=== PATIENT | female | born 1990 | race American Indian/Alaskan Native ===

== ENCOUNTER 2016-12-17 12:04 | Emergency (ER) | payer BC, OTHER ==
--- NOTE | 2016-12-17 12:25 | Emergency Department Report ---
Stated Complaint: /NUMBNESS/SOB/CHEST PAIN Time Seen by Provider: 12/17/16 12:21 - HPI History of Present Illness: PT states for two days she has had L arm pain. PT States this morning she had sob, cp, and fatigue - ROS Review of Systems: - urinary frequency lmp 11-19-16 - cough - Exam Physical Exam: PT looks well, non toxic no focal weakness no acute resp distress rrr MSE screening note: Focused history and physical exam performed. Due to findings the following was ordered: ekg, labs, xr ED Disposition for MSE Condition: Stable
[2016-12-17 13:03] LABS: Basophils % (Auto) 0.6 % (0.0-1.8); Hematocrit 41.1 % (30.3-42.9); Hemoglobin 14.1 gm/dl (10.1-14.3); Mean Corpuscular HGB Conc 34 % (30-34); Mean Corpuscular Hemoglobin 30 pg (28-32); Mean Corpuscular Volume 86 fl (79-97); Platelet Count 271 K/mm3 (140-440); Red Blood Count 4.79 M/mm3 (3.65-5.03); Red Cell Distribution Width 13.3 % (13.2-15.2); White Blood Count 6.2 K/mm3 (4.5-11.0)
[2016-12-17 13:13] LABS: INR 1.01 (0.87-1.13)
[2016-12-17 13:26] LABS: Alanine Aminotransferase 10 units/L (7-56); Albumin 3.7 g/dL (3.9-5); Alkaline Phosphatase 72 units/L (35-129); Anion Gap 16 mmol/L; Blood Urea Nitrogen 7 mg/dL (7-17); Calcium 8.8 mg/dL (8.4-10.2); Carbon Dioxide 24 mmol/L (22-30); Chloride 101.2 mmol/L (98-107); Glucose 80 mg/dL (65-100); Sodium 137 mmol/L (137-145); Total Protein 7.3 g/dL (6.3-8.2)
--- NOTE | 2016-12-17 13:44 | XRay Report ---
ROUTINE CHEST, TWO VIEWS: HISTORY: chest pain. The trachea, heart, mediastinal contour, lung viera and bony thorax are unremarkable. IMPRESSION: Unremarkable chest x-ray.
--- NOTE | 2016-12-17 14:34 | Cat Scan Report ---
CT angiography of the chest including 3-D reconstructed images. History: Chest pain and shortness of breath. Findings: There is no evidence of pulmonary emboli. The lungs are clear. There is no pleural fluid. The mediastinum and hilar regions appear normal. Impression: Negative study.
[2016-12-17] MEDS ORDERED: MORPHINE IV ONE (15:11)
[2016-12-17] MEDS ORDERED: ZOFRAN IV ONE (15:12)
--- NOTE | 2016-12-17 15:15 | Emergency Department Report ---
HPI - General Chief Complaint: Chest Pain Time Seen by Provider: 12/17/16 12:21 - HPI HPI: patient c/o mid chest pain, without radiation, 5/10, started 3 days ago, patient denies any alleviating or exacerbating factor. patient has not taken any medications otc for her pain. patient denies any h/o heart disease, or htn, or diabetes. ED Past Medical Hx - Past Medical History Previous Medical History?: Yes Hx Asthma: Yes - Surgical History Hx Cholecystectomy: Yes (09/03/2013) - Social History Smoking Status: Never Smoker Substance Use Type: Alcohol - Medications Home Medications: Home Medications Medication Instructions Recorded Confirmed Last Taken Type Albuterol Sulfate [Ventolin HFA] 2 puff IH Q4H PRN #1 hfa.aer.ad 03/30/14 Unknown Rx Ciprofloxacin HCl [Ciprofloxacin 500 mg PO Q12H #14 tab 10/27/14 Unknown Rx TAB] Promethazine [Phenergan TAB] 25 mg PO Q6HR PRN #20 tab 10/27/14 Unknown Rx Ibuprofen [Motrin 600 MG tab] 600 mg PO Q8H PRN #30 tablet 12/17/16 Unknown Rx ED Review of Systems ROS: Stated complaint: /NUMBNESS/SOB/CHEST PAIN Other details as noted in HPI Comment: All other systems reviewed and negative Cardiovascular: chest pain Endocrine: no symptoms reported Musculoskeletal: as per HPI Physical Exam - Physical Exam Vital Signs: Vital Signs 12/17/16 12:23 Temperature 97.8 F Pulse Rate 60 Respiratory 18 Rate Blood Pressure 113/72 O2 Sat by Pulse 100 Oximetry Physical Exam: - General Limitations: No Limitations General appearance: alert, in no apparent distress - Head Head exam: Present: atraumatic, normocephalic - Eye Eye exam: Present: normal appearance - ENT ENT exam: Present: mucous membranes moist - Neck Neck exam: Present: normal inspection - Respiratory Respiratory exam: Present: normal lung sounds bilaterally. Absent: respiratory distress - Cardiovascular Cardiovascular Exam: Present: regular rate, normal rhythm. Absent: systolic murmur, diastolic murmur, rubs, gallop - GI/Abdominal GI/Abdominal exam: Present: soft, normal bowel sounds - Extremities Exam Extremities exam: Present: normal inspection - Back Exam Back exam: Present: normal inspection - Neurological Exam Neurological exam: Present: alert, oriented X3, CN II-XII intact - Psychiatric Psychiatric exam: Present:normal affect - Skin Skin exam: Present: warm, dry, intact, normal color. Absent: rash ED Course Vital Signs 12/17/16 12:23 Temperature 97.8 F Pulse Rate 60 Respiratory 18 Rate Blood Pressure 113/72 O2 Sat by Pulse 100 Oximetry ED Medical Decision Making - Lab Data Result diagrams: 12/17/16 12:42 12/17/16 12:42 Critical care attestation.: If time is entered above; I have spent that time in minutes in the direct care of this critically ill patient, excluding procedure time. ED Disposition Clinical Impression: Chest pain Qualifiers: Chest pain type: other chest pain Qualified Code(s): R07.89 - Other chest pain ; R07.8 - Other chest pain Disposition: - TO HOME OR SELFCARE Is pt being admited?: No Does the pt Need Aspirin: No Condition: Stable Instructions: Chest Pain (ED) Prescriptions: Ibuprofen [Motrin 600 MG tab] 600 mg PO Q8H PRN #30 tablet PRN Reason: Pain Referrals: PRIMARY CARE, [Primary Care Provider] - 3-5 Days Forms: Work/School Release Form(ED)
[2016-12-17 15:39] VITALS: BP 114/62
== END 2016-12-17 15:41 | disposition home or self-care (01) ==
LOC: ED 12:04
DX: R07.89 Other chest pain (principal); J45.909 Unspecified asthma, uncomplicated; Z90.49 Acquired absence of other specified parts of digestive tract
CPT/HCPCS: 36415; 71020; 71275; 80053; 84484; 84703; 85025; 85610; 85730; 93005; 93010; 96374; 99284; J2270; Q9967

== ENCOUNTER 2017-10-10 10:07 | Emergency (ER) | payer MEDICAID ==
[2017-10-10 10:21] VITALS: BP 107/73
[2017-10-10 11:03] LABS: Bilirubin,Urine NEG (Negative); Blood,Urine LG (Negative); Color,Urine Yellow (Yellow); Mucus,Urine FEW /HPF; Protein,Urine <15 mg/dL mg/dL (Negative)
[2017-10-10 11:11] LABS: Amphetamine Screen,Urine PRESUMPTIVE NEGATIVE; Benzodiazepines Screen,Urine PRESUMPTIVE NEGATIVE; Cannabinoid Screen,Urine PRESUMPTIVE NEGATIVE; Cocaine Screen,Urine PRESUMPTIVE NEGATIVE; Methadone Screen,Urine PRESUMPTIVE NEGATIVE; Opiate Screen,Urine PRESUMPTIVE NEGATIVE
[2017-10-10 11:52] LABS: Basophils # (Auto) 0.1 K/mm3 (0.0-0.1); Eosinophils # (Auto) 0.1 K/mm3 (0.0-0.4); Eosinophils % (Auto) 1.8 % (0.0-4.3); Hematocrit 45.1 % (30.3-42.9); Hemoglobin 15.3 gm/dl (10.1-14.3); Lymphocytes # (Auto) 2.2 K/mm3 (1.2-5.4); Lymphocytes % (Auto) 31.4 % (13.4-35.0); Mean Corpuscular HGB Conc 34 % (30-34); Mean Corpuscular Hemoglobin 30 pg (28-32); Mean Corpuscular Volume 87 fl (79-97); Monocytes # (Auto) 0.5 K/mm3 (0.0-0.8); Monocytes % (Auto) 6.8 % (0.0-7.3); Platelet Count 266 K/mm3 (140-440); Red Blood Count 5.16 M/mm3 (3.65-5.03); Red Cell Distribution Width 13.4 % (13.2-15.2)
--- NOTE | 2017-10-10 12:03 | Emergency Department Report ---
ED Psych HPI - General Chief Complaint: Psych Stated Complaint: MENTAL HEALTH EVALUATION Time Seen by Provider: 10/10/17 10:34 Source: patient, family (Sister) Mode of arrival: Ambulatory Limitations: No Limitations - History of Present Illness Initial Comments: Patient said 2 days ago she overdosed on seven tablets of Zoloft 25 mg in an attempt to kill herself. Patient is currently suicidal, and has some fainancial and relationship issues with her boyfriend. She is depressed and she does not want to live any more. MD Complaint: suicidal ideation, feels depressed -: Gradual Associated Psychiatric Symptoms: depression, suicidal ideation History of same: Yes Quality: constant Improves With: none Worsens With: none Context: significant life stressor Associated Symptoms: denies other symptoms Treatments Prior to Arrival: none If Self Harm: admits thoughts of - Related Data Previous Rx's Medication Instructions Recorded Last Taken Type Albuterol Sulfate [Ventolin HFA] 2 puff IH Q4H PRN #1 hfa.aer.ad 03/30/14 Unknown Rx Ciprofloxacin HCl [Ciprofloxacin 500 mg PO Q12H #14 tab 10/27/14 Unknown Rx TAB] Promethazine [Phenergan TAB] 25 mg PO Q6HR PRN #20 tab 10/27/14 Unknown Rx Ibuprofen [Motrin 600 MG tab] 600 mg PO Q8H PRN #30 tablet 12/17/16 Unknown Rx Allergies Allergy/AdvReac Type Severity Reaction Status Date / Time shellfish derived AdvReac Intermediate Hives Verified 04/10/13 13:06 ED Review of Systems ROS: Stated complaint: MENTAL HEALTH EVALUATION Other details as noted in HPI Comment: All other systems reviewed and negative Constitutional: denies: chills, fever Eyes: denies: eye pain, vision change ENT: denies: ear pain Respiratory: denies: cough, orthopnea, shortness of breath Cardiovascular: denies: chest pain, palpitations, dyspnea on exertion Endocrine: no symptoms reported Gastrointestinal: denies: abdominal pain, nausea, vomiting, diarrhea Genitourinary: denies: urgency, dysuria, frequency Musculoskeletal: denies: back pain, joint swelling Skin: denies: rash, lesions Neurological: denies: headache, weakness, numbness Psychiatric: depression, suicidal thoughts. denies: anxiety, homicidal thoughts Hematological/Lymphatic: denies: easy bleeding, easy bruising ED Past Medical Hx - Past Medical History Hx Asthma: Yes - Surgical History Past Surgical History?: Yes Hx Cholecystectomy: Yes (09/03/2013) - Social History Smoking Status: Never Smoker Substance Use Type: Alcohol - Medications Home Medications: Home Medications Medication Instructions Recorded Confirmed Last Taken Type Albuterol Sulfate [Ventolin HFA] 2 puff IH Q4H PRN #1 hfa.aer.ad 03/30/14 Unknown Rx Ciprofloxacin HCl [Ciprofloxacin 500 mg PO Q12H #14 tab 10/27/14 Unknown Rx TAB] Promethazine [Phenergan TAB] 25 mg PO Q6HR PRN #20 tab 10/27/14 Unknown Rx Ibuprofen [Motrin 600 MG tab] 600 mg PO Q8H PRN #30 tablet 12/17/16 Unknown Rx ED Physical Exam - General Limitations: No Limitations General appearance: alert, in no apparent distress, other (Tearful.) - Head Head exam: Present: atraumatic, normocephalic, normal inspection - Eye Eye exam: Present: normal appearance, PERRL, EOMI. Absent: scleral icterus Pupils: Present: normal accommodation - ENT ENT exam: Present: normal exam, normal orophraynx, mucous membranes moist - Neck Neck exam: Present: normal inspection, full ROM - Respiratory Respiratory exam: Present: normal lung sounds bilaterally. Absent: respiratory distress, wheezes, rales, rhonchi - Cardiovascular Cardiovascular Exam: Present: regular rate, normal rhythm, normal heart sounds - GI/Abdominal GI/Abdominal exam: Present: soft, normal bowel sounds. Absent: distended, tenderness, guarding, rebound - Extremities Exam Extremities exam: Present: normal inspection, full ROM, normal capillary refill - Back Exam Back exam: Present: normal inspection, full ROM - Neurological Exam Neurological exam: Present: alert, oriented X3, CN II-XII intact - Psychiatric Psychiatric exam: Present: depressed, flat affect, suicidal ideation - Skin Skin exam: Present: warm, dry, intact, normal color. Absent: rash ED Course Vital Signs 10/10/17 10:16 Temperature 97.9 F Pulse Rate 86 Respiratory 16 Rate Blood Pressure 107/73 O2 Sat by Pulse 99 Oximetry - Reevaluation(s) Reevaluation #1: 10/10/17 12:39 Patient is medically cleared for psychiatric evaluation. ED Medical Decision Making - Lab Data Result diagrams: 10/10/17 10:50 - Radiology Data Radiology results: report reviewed - Medical Decision Making Suicide attempt. Suicide ideation. Major depression. Critical care attestation.: If time is entered above; I have spent that time in minutes in the direct care of this critically ill patient, excluding procedure time. ED Disposition Clinical Impression: Suicide ideation Suicide attempt by drug ingestion Qualifiers: Encounter type: initial encounter Qualified Code(s): T50.902A - Poisoning by unspecified drugs, medicaments and biological substances, intentional self-harm , initial encounter Depression Qualifiers: Depression Type: major depressive disorder Major depression recurrence: recurrent Active/Remission status: currently active Major depression episode severity: severe Psychotic features: without psychotic features Qualified Code(s ): F33.2 - Major depressive disorder, recurrent severe without psychotic features Disposition: DC/TX-65 PSY HOSP/PSY UNIT Is pt being admited?: No Does the pt Need Aspirin: No Condition: Stable Referrals: PRIMARY CARE, [Primary Care Provider] - 3-5 Days Time of Disposition: 12:41
[2017-10-10 12:45] LABS: BUN/Creatinine Ratio 16; Blood Urea Nitrogen 8 mg/dL (7-17); Calcium 9.3 mg/dL (8.4-10.2); Hemolysis Index 13
[2017-10-10 12:59] LABS: Albumin 3.6 g/dL (3.9-5); Bilirubin,Direct 0.2 mg/dL (0-0.2)
[2017-10-11 07:51] LABS: HCG Qualitative,Urine Negative (Negative)
== END 2017-10-10 18:32 ==
LOC: ED 10:07
DX: T50.902A Poisoning by unspecified drugs, medicaments and biological substances, intentional self-harm, initial encounter (principal); F33.2 Major depressive disorder, recurrent severe without psychotic features; Y92.89 Other specified places as the place of occurrence of the external cause; J45.909 Unspecified asthma, uncomplicated
CPT/HCPCS: 36415; 80048; 80074; 80307; 81001; 81025; 85025; 99285; G0480; 80320

== ENCOUNTER 2020-02-13 12:06 | Inpatient (IN) | payer MEDICAID, SELFPAY ==
[2020-02-13] MEDS ORDERED: SODIUM CHLORIDE 0.9% 1000 ML 1,000 ML IV ONE (12:11)
--- NOTE | 2020-02-13 12:52 | Emergency Department Report ---
ED Shortness of Breath HPI - General Chief Complaint: Dyspnea/Respdistress Stated Complaint: ADRIANA Time Seen by Provider: 02/13/20 12:09 Source: EMS Mode of arrival: Stretcher Limitations: No Limitations - History of Present Illness Initial Comments: This is a 37-year-old female who had a test I believe that an outpatient clinic on Friday which was positive for Covid. She states that she was short of breath. It became acutely worse today when EMS was summoned. She has been coughing frequently albeit nonproductive. She states that she has had change in her sense of smell and taste. Complaint: shortness of breath -: days(s) Severity: moderate Quality: dull (Chest discomfort) Consistency: intermittent Improves With: nothing Worsens With: nothing Known History Of: other Context: recent URI Associated Symptoms: denies other symptoms, chest pain, cough Treatments Prior to Arrival: none - Related Data Home Oxygen Therapy: No Previous Rx's Medication Instructions Recorded Last Taken Type Albuterol Sulfate [Ventolin HFA] 2 puff IH Q4H PRN #1 hfa.aer.ad 03/30/14 Unknown Rx Ciprofloxacin HCl [Ciprofloxacin 500 mg PO Q12H #14 tab 10/27/14 Unknown Rx TAB] Promethazine [Phenergan TAB] 25 mg PO Q6HR PRN #20 tab 10/27/14 Unknown Rx Ibuprofen [Motrin 600 MG tab] 600 mg PO Q8H PRN #30 tablet 12/17/16 Unknown Rx Allergies Allergy/AdvReac Type Severity Reaction Status Date / Time shellfish derived AdvReac Intermediate Hives Verified 02/13/20 12:31 ED Review of Systems ROS: Stated complaint: ADRIANA Other details as noted in HPI Constitutional: fever. denies: chills Eyes: denies: eye pain, eye discharge, vision change ENT: denies: ear pain, throat pain Respiratory: cough, shortness of breath. denies: wheezing Cardiovascular: chest pain. denies: palpitations Endocrine: no symptoms reported Gastrointestinal: denies: abdominal pain, nausea, diarrhea Genitourinary: denies: urgency, dysuria, discharge Musculoskeletal: denies: back pain, joint swelling, arthralgia Skin: denies: rash, lesions Neurological: denies: headache, weakness, paresthesias Psychiatric: denies: anxiety, depression Hematological/Lymphatic: denies: easy bleeding, easy bruising ED Past Medical Hx - Past Medical History Hx Asthma: Yes Additional medical history: Apparently the patient was transferred to [place] in 2018 for suicidal ideation. - Surgical History Hx Cholecystectomy: Yes (09/03/2013) - Social History Smoking Status: Never Smoker Substance Use Type: Alcohol - Medications Home Medications: Home Medications Medication Instructions Recorded Confirmed Last Taken Type Albuterol Sulfate [Ventolin HFA] 2 puff IH Q4H PRN #1 hfa.aer.ad 03/30/14 Unknown Rx Ciprofloxacin HCl [Ciprofloxacin 500 mg PO Q12H #14 tab 10/27/14 Unknown Rx TAB] Promethazine [Phenergan TAB] 25 mg PO Q6HR PRN #20 tab 10/27/14 Unknown Rx Ibuprofen [Motrin 600 MG tab] 600 mg PO Q8H PRN #30 tablet 12/17/16 Unknown Rx ED Physical Exam - General Limitations: No Limitations General appearance: alert, in no apparent distress, obese (Morbidly obese) - Head Head exam: Present: atraumatic, normocephalic - Eye Eye exam: Present: normal appearance. Absent: scleral icterus - ENT ENT exam: Present: mucous membranes moist - Neck Neck exam: Present: normal inspection - Respiratory Respiratory exam: Present: normal lung sounds bilaterally, other (Frequent nonproductive cough). Absent: respiratory distress - Cardiovascular Cardiovascular Exam: Present: normal rhythm, tachycardia. Absent: systolic murmur, diastolic murmur, rubs, gallop - GI/Abdominal GI/Abdominal exam: Present: soft, normal bowel sounds. Absent: distended, tenderness, guarding, rebound, rigid - Extremities Exam Extremities exam: Present: normal inspection - Back Exam Back exam: Present: normal inspection - Neurological Exam Neurological exam: Present: alert, oriented X3, CN II-XII intact. Absent: motor sensory deficit - Psychiatric Psychiatric exam: Present: normal affect, normal mood - Skin Skin exam: Present: warm, dry, intact, normal color. Absent: rash ED Course Vital Signs 02/13/20 02/13/20 02/13/20 12:12 12:30 13:00 Pulse Rate 108 H 105 H 105 H Respiratory 33 H 33 H 36 H Rate Blood Pressure 122/82 121/75 O2 Sat by Pulse 94 93 Oximetry - Reevaluation(s) Reevaluation #1: Patient is somewhat tachypneic with a pulse oximetry of 95% at rest. I would be fairly certain that she would desaturate on exertion. She is morbidly obese. I requested hospitalist to admit. They are in agreement. Laboratory had some sort of accession number delay in processing the labs which they have now corrected. 02/13/20 13:44 Reevaluation #2: Mild neutropenia noted 02/13/20 14:27 ED Medical Decision Making - Lab Data Result diagrams: 02/13/20 12:34 02/13/20 12:34 Laboratory Results - last 24 hr 02/13/20 02/13/20 02/13/20 12:34 12:34 12:34 WBC 2.5 L RBC 5.32 H Hgb 15.1 H Hct 44.8 H MCV 84 MCH 28 MCHC 34 RDW 13.1 L Plt Count 151 Lymph % (Auto) 32.3 [place] % (Auto) 10.5 H Eos % (Auto) 0.1 Baso % (Auto) 0.3 Lymph # (Auto) 0.8 L [place] # (Auto) 0.3 Eos # (Auto) 0.0 Baso # (Auto) 0.0 Seg Neutrophils % 56.8 Seg Neutrophils # 1.4 L PT INR APTT D-Dimer Sodium 134 L Potassium 3.9 Chloride 99.9 Carbon Dioxide 23 Anion Gap 15 BUN 6 L Creatinine 0.6 Estimated GFR > 60 BUN/Creatinine Ratio 10 Glucose 94 Lactic Acid 1.00 Calcium 8.7 Magnesium 1.80 Lactate Dehydrogenase 388 H Total Creatine Kinase 227 H CK-MB (CK-2) < 1.0 CK-MB (CK-2) Rel Index 0.4 Troponin T < 0.010 C-Reactive Protein 0.40 NT-Pro-B Natriuret Pep 7.77 Procalcitonin 02/13/20 02/13/20 12:34 12:34 WBC RBC Hgb Hct MCV MCH MCHC RDW Plt Count Lymph % (Auto) [place] % (Auto) Eos % (Auto) Baso % (Auto) Lymph # (Auto) [place] # (Auto) Eos # (Auto) Baso # (Auto) Seg Neutrophils % Seg Neutrophils # PT 12.9 INR 0.96 APTT 32.6 D-Dimer 329.05 H Sodium Potassium Chloride Carbon Dioxide Anion Gap BUN Creatinine Estimated GFR BUN/Creatinine Ratio Glucose Lactic Acid Calcium Magnesium Lactate Dehydrogenase Total Creatine Kinase CK-MB (CK-2) CK-MB (CK-2) Rel Index Troponin T C-Reactive Protein NT-Pro-B Natriuret Pep Procalcitonin < 0.05 - EKG Data -: EKG Interpreted by Me EKG shows normal: sinus rhythm, axis, intervals, QRS complexes, ST-T waves Rate: normal - EKG Data Interpretation: nonspecific ST-T wave dyana, other (Left atrial abnormality) - Radiology Data Radiology results: image reviewed Bilateral lower lobe and perihilar infiltrates consistent with viral pneumonia, e.g. COVID-19 Critical care attestation.: If time is entered above; I have spent that time in minutes in the direct care of this critically ill patient, excluding procedure time. ED Disposition Clinical Impression: COVID-19, Morbid obesity, Hypoxia Bilateral pneumonia Qualifiers: Pneumonia type: due to unspecified organism Lung location: unspecified part of lung Qualified Code(s): J18.9 - Pneumonia, unspecified organism Neutropenia Qualifiers: Neutropenia type: unspecified Qualified Code(s): D70.9 - Neutropenia, unspe cified Disposition: DC-09 OP ADMIT IP TO THIS HOSP Is pt being admited?: Yes Does the pt Need Aspirin: Yes Condition: Stable Instructions: Bacterial Pneumonia (ED) Referrals: PRIMARY CARE, [Primary Care Provider] - 3-5 Days Time of Disposition: 14:28
[2020-02-13 13:43] LABS: Basophils % (Auto) 0.3 % (0.0-1.8); Eosinophils % (Auto) 0.1 % (0.0-4.3); Hematocrit 44.8 % (30.3-42.9); Hemoglobin 15.1 gm/dl (10.1-14.3); Lymphocytes # (Auto) 0.8 K/mm3 (1.2-5.4); Lymphocytes % (Auto) 32.3 % (13.4-35.0); Mean Corpuscular HGB Conc 34 % (30-34); Mean Corpuscular Volume 84 fl (79-97); Monocytes # (Auto) 0.3 K/mm3 (0.0-0.8); Monocytes % (Auto) 10.5 % (0.0-7.3); Platelet Count 151 K/mm3 (140-440); Red Blood Count 5.32 M/mm3 (3.65-5.03); Red Cell Distribution Width 13.1 % (13.2-15.2)
[2020-02-13] MEDS ORDERED: cefTRIAXone/NS 1 GM/50 ML 1 GM/50 ML BAG IV ONE (13:49)
[2020-02-13 13:53] LABS: INR 0.96 (0.87-1.13)
[2020-02-13 13:54] LABS: Partial Thromboplastin Time 32.6 Sec. (24.2-36.6)
[2020-02-13 13:57] LABS: Creatine Kinase MB < 1.0 ng/mL (0.0-4.0)
--- NOTE | 2020-02-13 13:57 | XRay Report ---
CHEST 1 VIEW INDICATION: Dyspnea COMPARISON: 12/17/2016 FINDINGS: Support devices: None Heart: Stable. Lungs/Pleura: Inspiration is suboptimal, with subsequent crowding of the bronchovascular markings in the mid and lower lungs. No significant pleural fluid and no convincing evidence of acute disease. IMPRESSION: 1. Suboptimal inspiration, but no definite acute disease. Signer Name: Doe Shea MD Signed: 02/13/2020 1:52 PM Workstation Name: [id number]
[2020-02-13] MEDS ORDERED: AZITHROMYCIN 500 MG in SODIUM CHLORIDE 0.9% 250ML 250 ML IV ONE (14:00)
[2020-02-13 14:01] LABS: BUN/Creatinine Ratio 10; Blood Urea Nitrogen 6 mg/dL (7-17); Calcium 8.7 mg/dL (8.4-10.2); Hemolysis Index 30
[2020-02-13] MEDS ORDERED: ACETAMINOPHEN 325 MG TAB ONE (14:55)
[2020-02-13] MEDS: ASPIRIN 325 MG TAB PO ONE ×2 (15:00→18:57)
[2020-02-13 15:40] LABS: Bilirubin,Urine NEG (Negative); Blood,Urine NEG (Negative); Color,Urine Yellow (Yellow); Protein,Urine <15 mg/dL mg/dL (Negative); Urobilinogen,Urine < 2.0 mg/dL (<2.0)
[2020-02-13 15:44] LABS: Amphetamine Screen,Urine Negative; Benzodiazepines Screen,Urine Negative; Cannabinoid Screen,Urine Negative; Cocaine Screen,Urine Negative; Methadone Screen,Urine Negative; Opiate Screen,Urine Negative
[2020-02-13 15:53] LABS: HCG Qualitative,Urine Negative (Negative)
[2020-02-13] MEDS ORDERED: ACETAMINOPHEN 325 MG TAB PO ONE (18:50)
[2020-02-13] MEDS ORDERED: ALBUTEROL 2.5 MG/3 ML NEBU IH ONE (21:20)
--- NOTE | 2020-02-14 00:22 | History and Physical Report ---
History of Present Illness Date of examination: 02/13/20 Date of admission: 02/13/20 14:08 Chief complaint: Cough and shortness of breath for 5 days. Tested positive for coronavirus on 02/08/2020 History of present illness: 37-year-old female with history of asthma comes in for increasing shortness of breath. Patient was apparently tested positive for coronavirus on Friday which is 02/08/2020. Patient has been coughing frequently and some shortness of breath. Also body aches. No fever or chills. Patient x-ray and oxygen saturations are normal. No infiltrates on the chest x-ray. With the chest x- ray was suboptimal. Exposure to coronavirus present. And apparently had a coronavirus positive test. 5 days ago. - Past Medical History --Asthma: Yes --2018 for suicidal ideation. - Surgical History --Cholecystectomy: Yes (09/03/2013) - Social History --Smoking Status: Never Smoker --Substance Use Type: Alcohol Family history --Htn - Medications Home Medications: Home Medications Medication Instructions Recorded Confirmed Last Taken Type Albuterol Sulfate [Ventolin HFA] 2 puff IH Q4H PRN #1 [email or web address] 03/30/14 06/09/14 Unknown Rx Ciprofloxacin HCl [Ciprofloxacin 500 mg PO Q12H #14 tab 10/27/14 Unknown Rx TAB] Promethazine [Phenergan TAB] 25 mg PO Q6HR PRN #20 tab 10/27/14 Unknown Rx Ibuprofen [Motrin 600 MG tab] 600 mg PO Q8H PRN #30 tablet 12/17/16 Unknown Rx Review of Systems ROS: Stated complaint: ADRIANA Other details as noted in HPI Constitutional: fever. denies: chills Eyes: denies: eye pain, eye discharge, vision change ENT: denies: ear pain, throat pain Respiratory: cough, shortness of breath. denies: wheezing Cardiovascular: chest pain. denies: palpitations Endocrine: no symptoms reported Gastrointestinal: denies: abdominal pain, nausea, diarrhea Genitourinary: denies: urgency, dysuria, discharge Musculoskeletal: denies: back pain, joint swelling, arthralgia Skin: denies: rash, lesions Neurological: denies: headache, weakness, paresthesias Psychiatric: denies: anxiety, depression Hematological/Lymphatic: denies: easy bleeding, easy bruising Medications and Allergies Allergies Allergy/AdvReac Type Severity Reaction Status Date / Time shellfish derived AdvReac Intermediate Hives Verified 02/13/20 12:31 Home Medications Medication Instructions Recorded Confirmed Last Taken Type Albuterol Sulfate [Ventolin HFA] 2 puff IH Q4H PRN #1 [email or web address] 03/30/14 06/09/14 Unknown Rx Ciprofloxacin HCl [Ciprofloxacin 500 mg PO Q12H #14 tab 10/27/14 Unknown Rx TAB] Promethazine [Phenergan TAB] 25 mg PO Q6HR PRN #20 tab 10/27/14 Unknown Rx Ibuprofen [Motrin 600 MG tab] 600 mg PO Q8H PRN #30 tablet 12/17/16 Unknown Rx Exam - Constitutional Vitals: Temp Pulse Resp BP Pulse Ox 98.9 F 102 H 20 129/79 97 02/13/20 20:45 02/13/20 21:36 02/13/20 21:36 02/13/20 20:45 02/13/20 21:36 General appearance: Present: no acute distress, well-nourished - EENT Eyes: Present: PERRL ENT: hearing intact, clear oral mucosa - Neck Neck: Present: supple, normal ROM - Respiratory Respiratory effort: normal Respiratory: bilateral: CTA, rhonchi (Scattered) - Cardiovascular Heart rate: 78 Rhythm: regular (78) Heart Sounds: Present: S1 & S2. Absent: rub, click - Extremities Extremities: no ischemia, pulses intact, pulses symmetrical, No edema Peripheral Pulses: within normal limits - Abdominal General gastrointestinal: Present: soft, non-tender, non-distended, normal bowel sounds Female genitourinary: Present: normal - Rectal Rectal Exam: deferred - Integumentary Integumentary: Present: clear, warm, dry - Musculoskeletal Musculoskeletal: gait normal, strength equal bilaterally - Psychiatric Psychiatric: appropriate mood/affect, intact judgment & insight - Neurologic Neurologic: CNII-XII intact, moves all extremities - Allied Health Allied health notes reviewed: nursing, case management HEART Score - HEART Score Troponin: Troponin T < 0.010 ng/mL (0.00-0.029) 02/13/20 12:34 Results - Labs CBC & Chem 7: 02/13/20 12:34 02/13/20 12:34 Labs: Laboratory Last Values WBC 2.5 K/mm3 (4.5-11.0) L 02/13/20 12: RBC 5.32 M/mm3 (3.65-5.03) H 02/13/20 12:34 Hgb 15.1 gm/dl (10.1-14.3) H 02/13/20 12:34 Hct 44.8 % (30.3-42.9) H 02/13/20 12: MCV 84 fl (79-97) 02/13/20 12: MCH 28 pg (28-32) 02/13/20 12: MCHC 34 % (30-34) 02/13/20 12: RDW 13.1 % (13.2-15.2) L 02/13/20 12: Plt Count 151 K/mm3 (140-440) 02/13/20 12: Lymph % (Auto) 32.3 % (13.4-35.0) 02/13/20 12: [place] % (Auto) 10.5 % (0.0-7.3) H 02/13/20 12: Eos % (Auto) 0.1 % (0.0-4.3) 02/13/20: Baso % (Auto) 0.3 % (0.0-1.8) 02/13/20 12: Lymph # (Auto) 0.8 K/mm3 (1.2-5.4) L 02/13/20 12: [place] # (Auto) 0.3 K/mm3 (0.0-0.8) 02/13/20 12: Eos # (Auto) 0.0 K/mm3 (0.0-0.4) 02/13/20 12: Baso # (Auto) 0.0 K/mm3 (0.0-0.1) 02/13/20 12: Seg Neutrophils % 56.8 % (40.0-70.0) 02/13/20: Seg Neutrophils # 1.4 K/mm3 (1.8-7.7) L 02/13/20 12: PT 12.9 Sec. (12.2-14.9) 02/13/20 12: INR 0.96 (0.87-1.13) 02/13/20 12:34 APTT 32.6 Sec. (24.2-36.6) 02/13/20 12:34 D-Dimer 329.05 ng/mlDDU (0-234) H 02/13/20 12:34 Sodium 134 mmol/L (137-145) L 02/13/20 12:34 Potassium 3.9 mmol/L (3.6-5.0) 02/13/20 12:34 Chloride 99.9 mmol/L (98-107) 02/13/20 12:34 Carbon Dioxide 23 mmol/L (22-30) 02/13/20 12:34 Anion Gap 15 mmol/L 02/13/20 12:34 BUN 6 mg/dL (7-17) L 02/13/20 12:34 Creatinine 0.6 mg/dL (0.6-1.2) 02/13/20 12:34 Estimated GFR > 60 ml/min 02/13/20 12:34 BUN/Creatinine Ratio 10 % 02/13/20 12: Glucose 94 mg/dL (65-100) 02/13/20 12: Lactic Acid 1.00 mmol/L (0.7-2.0) 02/13/20 12: Calcium 8.7 mg/dL (8.4-10.2) 02/13/20 12:34 Magnesium 1.80 mg/dL (1.7-2.3) 02/13/20 12: Ferritin 2487.0 ng/mL (10.0-200.0) H 02/13/20 12:34 Lactate Dehydrogenase 388 units/L (91-180) H 02/13/20 12:34 Total Creatine Kinase 227 units/L (30-135) H 02/13/20 12:34 CK-MB (CK-2) < 1.0 ng/mL (0.0-4.0) 02/13/20 12: CK-MB (CK-2) Rel Index 0.4 (0-4) 02/13/20 12: Troponin T < 0.010 ng/mL (0.00-0.029) 02/13/20 12:34 C-Reactive Protein 0.40 mg/dL (0.00-1.30) 02/13/20 12:34 NT-Pro-B Natriuret Pep 7.77 pg/mL (0-450) 02/13/20 12:34 Procalcitonin < 0.05 ng/mL (<0.15) 02/13/20 12:34 Urine Color Yellow (Yellow) 02/13/20 15:00 Urine Turbidity Slightly-cloudy (Clear) 02/13/20 15:00 Urine pH 7.0 (5.0-7.0) 02/13/20 15:00 Ur Specific [place] 1.006 (1.003-1.030) 02/13/20 15:00 Urine Protein <15 mg/dl mg/dL (Negative) 02/13/20 15:00 Urine Glucose (UA) Neg mg/dL (Negative) 02/13/20 15:00 Urine Ketones Tr mg/dL (Negative) 02/13/20 15:00 Urine Blood Neg (Negative) 02/13/20 15:00 Urine Nitrite Neg (Negative) 02/13/20 15:00 Urine Bilirubin Neg (Negative) 02/13/20 15:00 Urine Urobilinogen < 2.0 mg/dL (<2.0) 02/13/20 15:00 Ur Leukocyte Esterase Neg (Negative) 02/13/20 15:00 Urine WBC (Auto) 1.0 /HPF (0.0-6.0) 02/13/20 15:00 Urine RBC (Auto) 1.0 /HPF (0.0-6.0) 02/13/20 15:00 U Epithel Cells (Auto) 8.0 /HPF (0-13.0) 02/13/20 15:00 Urine HCG, Qual Negative (Negative) 02/13/20 15:00 Urine Opiates Screen Negative 02/13/20 15:00 Urine Methadone Screen Negative 02/13/20 15:00 Ur Barbiturates Screen Negative 02/13/20 15:00 Ur Phencyclidine Scrn Negative 02/13/20 15:00 Ur Amphetamines Screen Negative 02/13/20 15:00 U Benzodiazepines Scrn Negative 02/13/20 15:00 Urine Cocaine Screen Negative 02/13/20 15:00 U Marijuana (THC) Screen Negative 02/13/20 15:00 Drugs of Abuse Note Disclamer 02/13/20 15:00 Short CBC 02/13/20 Range/Units 12:34 WBC 2.5 L (4.5-11.0) K/mm3 Hgb 15.1 H (10.1-14.3) gm/dl Hct 44.8 H (30.3-42.9) % Plt Count 151 (140-440) K/mm3 BMP 02/13/20 12:34 Sodium 134 L Potassium 3.9 Chloride 99.9 Carbon Dioxide 23 BUN 6 L Creatinine 0.6 Glucose 94 Calcium 8.7 Cardiac Enzymes 02/13/20 Range/Units 12:34 Total Creatine Kinase 227 H (30-135) units/L CK-MB (CK-2) < 1.0 (0.0-4.0) ng/mL Troponin T < 0.010 (0.00-0.029) ng/mL Urine 02/13/20 Range/Units 15:00 Urine Color Yellow (Yellow) Urine pH 7.0 (5.0-7.0) Ur Specific [place] 1.006 (1.003-1.030) Urine Protein <15 mg/dl (Negative) mg/dL Urine Glucose (UA) Neg (Negative) mg/dL Microbiology: Microbiology 02/13/20 12:34 Peripheral/Venous Blood Culture - Preliminary Culture in Progress 02/13/20 12:34 Peripheral/Venous Blood Culture - Preliminary Culture in Progress - Imaging and Cardiology Chest x-ray: report reviewed Imaging and Cardiology: chest x-ray Suboptimal inspiration but no definite acute disease Hale/IV: Voiding Method Toilet IV Catheter Type [Right Hand] Peripheral IV Assessment and Plan Advance Directives: Yes (Full code) VTE prophylaxis?: Chemical Plan of care discussed with patient/family: Yes - Patient Problems (1) Acute respiratory failure with hypoxia Current Visit: Yes Status: Acute Plan to address problem: Intermittent hypoxia We will admit for observation for 24 to 48 hours (2) COVID-19 Current Visit: Yes Status: Acute Plan to address problem: Coronavirus PCR to be done in a.m. (3) Morbid obesity Current Visit: Yes Status: Acute Plan to address problem: Counseled about morbid obesity Diet, exercise and follow-up with bariatric surgery (4) Neutropenia Current Visit: Yes Status: Acute Qualifiers: Neutropenia type: unspecified Qualified Code(s): D70.9 - Neutropenia, unspecified Plan to address problem: Possible sepsis (5) Acute gastroenteritis Current Visit: No Status: Acute Plan to address problem: IV fluids and symptomatic treatment (6) DVT prophylaxis Current Visit: No Status: Acute Plan to address problem: On Lovenox and GI prophylaxis
[2020-02-14] MEDS ORDERED: ALBUTEROL 8.5 GM MDI INHALATION IH PRN ×2 (00:27→21:27)
[2020-02-14] MEDS ORDERED: PROMETHAZINE 25 MG TAB PO PRN (00:27)
[2020-02-14] MEDS ORDERED: HYDROmorphone 1 MG/1 ML INJ IV PRN (00:29)
[2020-02-14] MEDS ORDERED: ONDANSETRON 4 MG/2 ML INJ IV PRN (00:29)
[2020-02-14] MEDS ORDERED: oxyCODONE /ACETAMINOPHEN 5-325MG TAB PO PRN (00:29)
[2020-02-14] MEDS ORDERED: METOCLOPRAMIDE 10 MG/2 ML INJ IV PRN (00:29)
[2020-02-14] MEDS ORDERED: ALBUTEROL 2.5 MG/3 ML NEBU IH PRN ×2 (00:31→19:00)
[2020-02-14] MEDS ORDERED: dexAMETHasone 4 MG/ML VIAL IV SCH (01:00)
--- NOTE | 2020-02-14 02:22 | Event Note ---
Date: 02/14/20 Cough medication prescribed, If no improvement, recommend repeating imaging study of the chest or CT chest inpatient or outpatient based on clinical progress.
[2020-02-14] MEDS: guaiFENesin DM 200/20 MG ORAL LIQD 10 ML PO PRN ×2 (02:29→08:40)
[2020-02-14 09:11] LABS: Hematocrit 43.8 % (30.3-42.9); Hemoglobin 15.2 gm/dl (10.1-14.3); Mean Corpuscular HGB Conc 35 % (30-34); Mean Corpuscular Volume 83 fl (79-97); Platelet Count 145 K/mm3 (140-440); Red Blood Count 5.31 M/mm3 (3.65-5.03); Red Cell Distribution Width 13.3 % (13.2-15.2)
[2020-02-14 09:43] LABS: Alanine Aminotransferase 133 units/L (7-56); Albumin 3.9 g/dL (3.9-5); Blood Urea Nitrogen 6 mg/dL (7-17); Hemolysis Index 2
[2020-02-14 09:48] LABS: BUN/Creatinine Ratio 12
[2020-02-14] MEDS: FAMOTIDINE 20 MG TAB PO SCH ×2 (09:50→21:18)
[2020-02-14] MEDS: DEXAMETHASONE 4 MG TAB PO SCH (09:50)
[2020-02-14] MEDS: cefTRIAXone/NS 2 GM/100 ML 2 GM/100 ML BAG IV SCH (09:50)
[2020-02-14] MEDS ORDERED: AZITHROMYCIN 500 MG in SODIUM CHLORIDE 0.9% 250ML 250 ML IV SCH (10:00)
[2020-02-14 11:42] LABS: Basophils % (Manual) 0 % (0.0-1.8); Eosinophils % (Manual) 0 % (0.0-4.3); Platelet Estimate Consistent w Auto; RBC Morphology Normal; Total Cells Counted 100
--- NOTE | 2020-02-14 16:41 | Progress Note ---
Assessment and Plan - Patient Problems (1) Acute respiratory failure with hypoxia Current Visit: Yes Status: Acute Plan to address problem: Has need for 3 liters [place] o2 (2) COVID-19 Current Visit: Yes Status: Acute Plan to address problem: Coronavirus PCR positive (3) Morbid obesity Current Visit: Yes Status: Chronic Plan to address problem: Counseled about morbid obesity Diet, exercise and follow-up with bariatric surgery (4) Neutropenia Current Visit: Yes Status: Acute Qualifiers: Neutropenia type: unspecified Qualified Code(s): D70.9 - Neutropenia, unspecified Plan to address problem: Possible sepsis (5) Acute gastroenteritis Current Visit: No Status: Acute Plan to address problem: IV fluids and symptomatic treatment (6) DVT prophylaxis Current Visit: No Status: Acute Plan to address problem: On Lovenox and GI prophylaxis Subjective Date of service: 02/14/20 Principal diagnosis: Acute resp failure with hypoxia,Covid positive Interval history: 37-year-old female with history of asthma comes in for increasing shortness of breath. Patient was apparently tested positive for coronavirus on Friday which is 02/08/2020. Patient has been coughing frequently and some shortness of breath. Also body aches. No fever or chills. Patient x-ray and oxygen saturations are normal. No infiltrates on the chest x-ray. With the chest x- ray was suboptimal. Exposure to coronavirus present. And apparently had a coronavirus positive test. 5 days ago. 02/14/20 Has need for 3 liters [place] O2 Covid test positive ID consult Objective - Constitutional Vitals: Vital Signs - 12hr 02/14/20 02/14/20 02/14/20 05:06 08:37 08:45 Temperature 99.0 F Pulse Rate 96 H Pulse Rate [ Bilateral Throughout] Respiratory 18 Rate Respiratory Rate [Bilateral Throughout] Blood Pressure 99/66 108/63 102/57 O2 Sat by Pulse 97 Oximetry 02/14/20 02/14/20 02/14/20 09:50 10:00 13:25 Temperature 97.2 F L Pulse Rate 83 Pulse Rate [ 93 H Bilateral Throughout] Respiratory 19 Rate Respiratory 20 Rate [Bilateral Throughout] Blood Pressure 90/54 O2 Sat by Pulse 97 97 Oximetry General appearance: Present: no acute distress, well-nourished - EENT Eyes: PERRL, EOM intact ENT: hearing intact, clear oral mucosa Ears: bilateral: normal - Neck Neck: supple, normal ROM - Respiratory Respiratory effort: normal Respiratory: bilateral: CTA - Breasts Breasts: normal - Cardiovascular Heart rate: 78 Rhythm: regular Heart Sounds: Present: S1 & S2. Absent: gallop, rub Extremities: pulses intact, No edema, normal color, Full ROM - Gastrointestinal General gastrointestinal: Present: soft, non-tender, non-distended, normal bowel sounds - Genitourinary Female genitourinary: normal - Integumentary Integumentary: clear, warm, dry - Musculoskeletal Musculoskeletal: 1, strength equal bilaterally - Neurologic Neurologic: moves all extremities - Psychiatric Psychiatric: memory intact, appropriate mood/affect, intact judgment & insight - Allied health notes Allied health notes reviewed: nursing, case management - Labs CBC & Chem 7: 02/14/20 08:29 02/14/20 08:29 Labs: Abnormal lab results 02/14/20 02/14/20 02/14/20 Range/Units 08:29 08:29 Unknown WBC 1.6 L* (4.5-11.0) K/mm3 RBC 5.31 H (3.65-5.03) M/mm3 Hgb 15.2 H (10.1-14.3) gm/dl Hct 43.8 H (30.3-42.9) % MCHC 35 H (30-34) % Seg Neuts % (Manual) 83.0 H (40.0-70.0) % Lymphocytes % (Manual) 13.0 L (13.4-35.0) % Seg Neutrophils # Man 1.3 L (1.8-7.7) K/mm3 Lymphocytes # (Manual) 0.2 L (1.2-5.4) K/mm3 BUN 6 L (7-17) mg/dL Creatinine 0.5 L (0.6-1.2) mg/dL Glucose 123 H (65-100) mg/dL AST 122 H (5-40) units/L ALT 133 H (7-56) units/L Coronavirus (PCR) Positive A (Negative) HEART Score - HEART Score Troponin: Troponin T < 0.010 ng/mL (0.00-0.029) 02/13/20 12:34
[2020-02-14] MEDS ORDERED: IPRATROPIUM/ALBUTEROL SULFATE 3 ML AMPUL.NEB IH PRN (18:39)
[2020-02-14] MEDS: ENOXAPARIN 40 MG/0.4 ML INJ SUB-Q SCH (21:07)
[2020-02-14] MEDS: ACETAMINOPHEN 325 MG TAB PO PRN (21:19)
[2020-02-14] MEDS: IPRATROPIUM/ALBUTEROL SULFATE 3 ML AMPUL.NEB IH SCH (21:28)
[2020-02-15] MEDS ORDERED: AZITHROMYCIN 250 MG TAB PO SCH (10:00)
[2020-02-15] MEDS ORDERED: ACETAMINOPHEN 325 MG TAB ONE (11:00)
[2020-02-15] MEDS ORDERED: IPRATROPIUM/ALBUTEROL SULFATE 3 ML AMPUL.NEB IH ONE ×2 (11:00→14:00)
[2020-02-15] MEDS: IPRATROPIUM/ALBUTEROL SULFATE 3 ML AMPUL.NEB IH SCH ×4 (13:45→20:14)
[2020-02-15] MEDS ORDERED: FAMOTIDINE 20 MG TAB ONE (14:00)
[2020-02-15] MEDS ORDERED: AZITHROMYCIN 250 MG TAB ONE (14:00)
[2020-02-15] MEDS ORDERED: cefTRIAXone/NS 2 GM/100 ML IVPB IV ONE (14:00)
[2020-02-15] MEDS ORDERED: DEXAMETHASONE 4 MG TAB ONE (14:00)
--- NOTE | 2020-02-15 19:59 | Progress Note ---
Assessment and Plan - Patient Problems (1) COVID-19 Current Visit: Yes Status: Acute Plan to address problem: - Presented with positive COVID PCR from OSH - (+) exposure to COVID - ID consulted - On azithromycin and Rocephin on 02/13 however CRP and procalcitonin normal, will wait ID inpuit to DC - COVID 19 PCR (+) in house - Supplemental oxygenation as needed - Pulmanory hygiene - OOB TID and prn - Dexamethasone 6mg PO x10 days started on 02/13 - Trend COVID markers - Anticoagulation per protocol - Consider pulm consult if not improving (2) Acute respiratory failure with hypoxia Current Visit: Yes Status: Acute Plan to address problem: - Supplemental oxygenation as needed - Pulmonary hygiene (3) Bilateral pneumonia Current Visit: Yes Status: Acute Qualifiers: Pneumonia type: due to unspecified organism Lung location: unspecified part of lung Qualified Code(s): J18.9 - Pneumonia, unspecified organism Plan to address problem: - 2/2 covid 19 (4) Neutropenia Current Visit: Yes Status: Acute Qualifiers: Neutropenia type: unspecified Qualified Code(s): D70.9 - Neutropenia, unspecified Plan to address problem: - likely 2/2 to covid - Neutropenic precautions - Presented with WBC 2.5 now 1.6 on 02/13 - Trend CBC (5) Acute gastroenteritis Current Visit: No Status: Acute Plan to address problem: - likely 2/2 to COVID - Suppprotive care - Antiemetic prn (6) Asthma Current Visit: No Status: Chronic Plan to address problem: - H/O asthma - Resume home pulm regimen - Supportive care (7) Morbid obesity Current Visit: Yes Status: Chronic Plan to address problem: - Wt loss counseling - Consider bariatric surgery outpt (8) Elevated d-dimer Current Visit: Yes Status: Acute Plan to address problem: - Admit ddimer 329 - Anticoagulation per protocol - 02/14 BLE venous dopplar US pending - 02/14 CTA pending (9) Transaminitis Current Visit: Yes Status: Acute Plan to address problem: - Presented with AST 122/ ALT 133 - Trend LFTS - likely 2/2 to COVID (10) DVT prophylaxis Current Visit: No Status: Acute Plan to address problem: - GI and DVT prophylaxis - SCDS to BLE while in bed History Interval history: 37-year-old female with asthma comes in for increasing shortness of breath for 5 days, coughing, body aches. Patient was apparently tested positive for coronavirus on 02/08/2020. Patient has been coughing frequently and some shortness of breath. Patient x-ray and oxygen saturations are normal. No infiltrates on the chest x-ray with the suboptimal imaging. Exposure to coronavirus from daughter and parents. On my exam remains of suppplemntal oxygenation with SOB. She is laying her stomach for a nap and c/o of SOB, cough and CHAVES. Pulm consulted. Hospitalist Physical - Constitutional Vitals: Temp Pulse Resp BP Pulse Ox 97.4 F L 102 H 18 95/54 99 02/15/20 12:36 02/15/20 14:10 02/15/20 14:10 02/15/20 12:36 02/15/20 12:36 General appearance: Present: mild distress, well-nourished - EENT Eyes: Present: PERRL, EOM intact ENT: hearing intact, clear oral mucosa, dentition normal - Neck Neck: Present: supple, normal ROM - Respiratory Respiratory effort: normal Respiratory: bilateral: diminished - Cardiovascular Rhythm: regular Heart Sounds: Present: S1 & S2. Absent: systolic murmur, diastolic murmur - Extremities Extremities: no ischemia, pulses intact, pulses symmetrical, No edema, normal temperature, normal color, Full ROM Peripheral Pulses: within normal limits - Abdominal General gastrointestinal: soft, non-tender, normal bowel sounds - Integumentary Integumentary: Present: clear, warm, dry - Psychiatric Psychiatric: memory intact, cooperative - Neurologic Neurologic: CNII-XII intact, no focal deficits, moves all extremities HEART Score - HEART Score Troponin: Troponin T < 0.010 ng/mL (0.00-0.029) 02/13/20 12:34 Results - Labs CBC & Chem 7: 02/14/20 08:29 02/14/20 08:29 Labs: Laboratory Last Values WBC 1.6 K/mm3 (4.5-11.0) L* 02/14/20 08:29 RBC 5.31 M/mm3 (3.65-5.03) H 02/14/20 08:29 Hgb 15.2 gm/dl (10.1-14.3) H 02/14/20 08:29 Hct 43.8 % (30.3-42.9) H 02/14/20 08: MCV 83 fl (79-97) 02/14/20 08: MCH 29 pg (28-32) 02/14/20 08:29 MCHC 35 % (30-34) H 02/14/20 08:29 RDW 13.3 % (13.2-15.2) 02/14/20 08: Plt Count 145 K/mm3 (140-440) 02/14/20 08:29 Lymph % (Auto) 32.3 % (13.4-35.0) 02/13/20 12:34 [place] % (Auto) 10.5 % (0.0-7.3) H 02/13/20 12:34 Eos % (Auto) 0.1 % (0.0-4.3) 02/13/20 12:34 Baso % (Auto) 0.3 % (0.0-1.8) 02/13/20 12:34 Lymph # (Auto) 0.8 K/mm3 (1.2-5.4) L 02/13/20 12:34 [place] # (Auto) 0.3 K/mm3 (0.0-0.8) 02/13/20 12:34 Eos # (Auto) 0.0 K/mm3 (0.0-0.4) 02/13/20 12:34 Baso # (Auto) 0.0 K/mm3 (0.0-0.1) 02/13/20 12:34 Add Manual Diff Complete 02/14/20 08:29 Total Counted 100 02/14/20 08:29 Seg Neutrophils % 56.8 % (40.0-70.0) 02/13/20 12:34 Seg Neuts % (Manual) 83.0 % (40.0-70.0) H 02/14/20 08:29 Band Neutrophils % 3.0 % 02/14/20 08:29 Lymphocytes % (Manual) 13.0 % (13.4-35.0) L 02/14/20 08:29 Reactive Lymphs % (Man) 0 % 02/14/20 08:29 Monocytes % (Manual) 1.0 % (0.0-7.3) 02/14/20 08:29 Eosinophils % (Manual) 0 % (0.0-4.3) 02/14/20 08:29 Basophils % (Manual) 0 % (0.0-1.8) 02/14/20 08:29 Metamyelocytes % 0 % 02/14/20 08:29 Myelocytes % 0 % 02/14/20 08:29 Promyelocytes % 0 % 02/14/20 08: Blast Cells % 0 % 02/14/20 08:29 Nucleated RBC % Not Reportable 02/14/20 08:29 Seg Neutrophils # 1.4 K/mm3 (1.8-7.7) L 02/13/20 12:34 Seg Neutrophils # Man 1.3 K/mm3 (1.8-7.7) L 02/14/20 08:29 Band Neutrophils # 0.0 K/mm3 02/14/20 08:29 Lymphocytes # (Manual) 0.2 K/mm3 (1.2-5.4) L 02/14/20 08:29 Abs React Lymphs (Man) 0.0 K/mm3 02/14/20 08:29 Monocytes # (Manual) 0.0 K/mm3 (0.0-0.8) 02/14/20 08:29 Eosinophils # (Manual) 0.0 K/mm3 (0.0-0.4) 02/14/20 08:29 Basophils # (Manual) 0.0 K/mm3 (0.0-0.1) 02/14/20 08: Metamyelocytes # 0.0 K/mm3 02/14/20 08:29 Myelocytes # 0.0 K/mm3 02/14/20 08:29 Promyelocytes # 0.0 K/mm3 02/14/20 08:29 Blast Cells # 0.0 K/mm3 02/14/20 08:29 WBC Morphology Not Reportable 02/14/20 08:29 Hypersegmented Neuts Not Reportable 02/14/20 08:29 Hyposegmented Neuts Not Reportable 02/14/20 08:29 Hypogranular Neuts Not Reportable 02/14/20 08:29 Smudge Cells Not Reportable 02/14/20 08:29 Toxic Granulation Not Reportable 02/14/20 08:29 Toxic Vacuolation Not Reportable 02/14/20 08:29 Dohle Bodies Not Reportable 02/14/20 08:29 Pelger-Huet Anomaly Not Reportable 02/14/20 08:29 Jassi Rods Not Reportable 02/14/20 08:29 Platelet Estimate Consistent w auto 02/14/20 08:29 Clumped Platelets Not Reportable 02/14/20 08:29 Plt Clumps, EDTA Not Reportable 02/14/20 08:29 Large Platelets Not Reportable 02/14/20 08:29 Giant Platelets Not Reportable 02/14/20 08:29 Platelet Satelliting Not Reportable 02/14/20 08:29 Plt Morphology Comment Not Reportable 02/14/20 08:29 RBC Morphology Normal 02/14/20 08:29 Dimorphic RBCs Not Reportable 02/14/20 08:29 Polychromasia Not Reportable 02/14/20 08:29 Hypochromasia Not Reportable 02/14/20 08:29 Poikilocytosis Not Reportable 02/14/20 08:29 Anisocytosis Not Reportable 02/14/20 08:29 Microcytosis Not Reportable 02/14/20 08:29 Macrocytosis Not Reportable 02/14/20 08:29 Spherocytes Not Reportable 02/14/20 08:29 Pappenheimer Bodies Not Reportable 02/14/20 08:29 Sickle Cells Not Reportable 02/14/20 08:29 Target Cells Not Reportable 02/14/20 08:29 Tear Drop Cells Not Reportable 02/14/20 08:29 Ovalocytes Not Reportable 02/14/20 08:29 Helmet Cells Not Reportable 02/14/20 08:29 [place] Bodies Not Reportable 02/14/20 08:29 [place] Rings Not Reportable 02/14/20 08:29 Petr Cells Not Reportable 02/14/20 08:29 Bite Cells Not Reportable 02/14/20 08:29 Crenated Cell Not Reportable 02/14/20 08:29 Elliptocytes Not Reportable 02/14/20 08:29 Acanthocytes (Spur) Not Reportable 02/14/20 08:29 Rouleaux Not Reportable 02/14/20 08:29 Hemoglobin C Crystals Not Reportable 02/14/20 08:29 Schistocytes Not Reportable 02/14/20 08:29 Malaria parasites Not Reportable 02/14/20 08:29 [place] Bodies Not Reportable 02/14/20 08:29 Hem Pathologist Commnt No 02/14/20 08:29 PT 12.9 Sec. (12.2-14.9) 02/13/20 12:34 INR 0.96 (0.87-1.13) 02/13/20 12:34 APTT 32.6 Sec. (24.2-36.6) 02/13/20 12:34 D-Dimer 329.05 ng/mlDDU (0-234) H 02/13/20 12:34 Sodium 137 mmol/L (137-145) 02/14/20 08:29 Potassium 4.2 mmol/L (3.6-5.0) 02/14/20 08:29 Chloride 103.9 mmol/L (98-107) 02/14/20 08:29 Carbon Dioxide 22 mmol/L (22-30) 02/14/20 08:29 Anion Gap 15 mmol/L 02/14/20 08:29 BUN 6 mg/dL (7-17) L 02/14/20 08:29 Creatinine 0.5 mg/dL (0.6-1.2) L 02/14/20 08:29 Estimated GFR > 60 ml/min 02/14/20 08:29 BUN/Creatinine Ratio 12 % 02/14/20 08:29 Glucose 123 mg/dL (65-100) H 02/14/20 08:29 Lactic Acid 1.00 mmol/L (0.7-2.0) 02/13/20 12:34 Calcium 9.0 mg/dL (8.4-10.2) 02/14/20 08:29 Magnesium 1.80 mg/dL (1.7-2.3) 02/13/20 12:34 Ferritin 2487.0 ng/mL (10.0-200.0) H 02/13/20 12:34 Total Bilirubin 0.40 mg/dL (0.1-1.2) 02/14/20 08:29 AST 122 units/L (5-40) H 02/14/20 08:29 ALT 133 units/L (7-56) H 02/14/20 08:29 Alkaline Phosphatase 98 units/L (35-129) 02/14/20 08:29 Lactate Dehydrogenase 388 units/L (91-180) H 02/13/20 12:34 Total Creatine Kinase 227 units/L (30-135) H 02/13/20 12:34 CK-MB (CK-2) < 1.0 ng/mL (0.0-4.0) 02/13/20 12:34 CK-MB (CK-2) Rel Index 0.4 (0-4) 02/13/20 12:34 Troponin T < 0.010 ng/mL (0.00-0.029) 02/13/20 12:34 C-Reactive Protein 0.40 mg/dL (0.00-1.30) 02/13/20 12:34 NT-Pro-B Natriuret Pep 7.77 pg/mL (0-450) 02/13/20 12:34 Total Protein 7.6 g/dL (6.3-8.2) 02/14/20 08:29 Albumin 3.9 g/dL (3.9-5) 02/14/20 08:29 Albumin/Globulin Ratio 1.1 % 02/14/20 08:29 Procalcitonin < 0.05 ng/mL (<0.15) 02/13/20 12:34 Urine Color Yellow (Yellow) 02/13/20 15:00 Urine Turbidity Slightly-cloudy (Clear) 02/13/20 15:00 Urine pH 7.0 (5.0-7.0) 02/13/20 15:00 Ur Specific [place] 1.006 (1.003-1.030) 02/13/20 15:00 Urine Protein <15 mg/dl mg/dL (Negative) 02/13/20 15:00 Urine Glucose (UA) Neg mg/dL (Negative) 02/13/20 15:00 Urine Ketones Tr mg/dL (Negative) 02/13/20 15:00 Urine Blood Neg (Negative) 02/13/20 15:00 Urine Nitrite Neg (Negative) 02/13/20 15:00 Urine Bilirubin Neg (Negative) 02/13/20 15:00 Urine Urobilinogen < 2.0 mg/dL (<2.0) 02/13/20 15:00 Ur Leukocyte Esterase Neg (Negative) 02/13/20 15:00 Urine WBC (Auto) 1.0 /HPF (0.0-6.0) 02/13/20 15:00 Urine RBC (Auto) 1.0 /HPF (0.0-6.0) 02/13/20 15:00 U Epithel Cells (Auto) 8.0 /HPF (0-13.0) 02/13/20 15:00 Urine HCG, Qual Negative (Negative) 02/13/20 15:00 Urine Opiates Screen Negative 02/13/20 15:00 Urine Methadone Screen Negative 02/13/20 15:00 Ur Barbiturates Screen Negative 02/13/20 15:00 Ur Phencyclidine Scrn Negative 02/13/20 15:00 Ur Amphetamines Screen Negative 02/13/20 15:00 U Benzodiazepines Scrn Negative 02/13/20 15:00 Urine Cocaine Screen Negative 02/13/20 15:00 U Marijuana (THC) Screen Negative 02/13/20 15:00 Drugs of Abuse Note Disclamer 02/13/20 15:00 Coronavirus (PCR) Positive (Negative) A 02/14/20 Unknown [place]/IV: Voiding Method Toilet IV Catheter Type [Right Hand] Peripheral IV Active Medications - Current Medications Current Medications: Generic Name Dose Route Start Last Admin Trade Name Freq PRN Reason Stop Dose Admin Acetaminophen 650 mg 02/14/20 00:29 02/14/20 21:19 Tylenol PO 650 mg Q4H PRN Administration Pain MILD(1-3)/Fever >100.5/MARTIN Albuterol 2 puff 02/14/20 21:27 Proair IH Q4HRT PRN Shortness Of Breath Albuterol/Ipratropium 1 ampul 02/14/20 20:00 02/15/20 17:19 Duoneb *Not For Prn Use* IH 1 ampul QIDRT KWASI Administration Azithromycin 500 mg 02/15/20 10:00 Zithromax PO 02/18/20 10:01 QDAY KWASI Dexamethasone 6 mg 02/14/20 10:00 02/14/20 09:50 Decadron PO 02/23/20 10:01 6 mg DAILY KWASI Administration Enoxaparin Sodium 40 mg 02/14/20 22:00 02/14/20 21:07 Enoxaparin SUB-Q 40 mg QDAY@2200 KWASI Administration Protocol Famotidine 20 mg 02/14/20 10:00 02/14/20 21:18 Pepcid PO 20 mg BID KWASI Administration Guaifenesin 10 ml 02/14/20 02:20 02/14/20 08:40 Guaifenesin Dm Syrup PO 10 ml Q4H PRN Administration Cough Hydromorphone HCl 0.5 mg 02/14/20 00:29 Dilaudid IV Q3H PRN Pain , Severe (7-10) Ceftriaxone Sodium 2 gm in 100 mls @ 200 mls/hr 02/14/20 10:00 02/14/20 09:50 Rocephin/Ns 2 Gm/100 Ml IV 200 mls/hr Q24HR KWASI Administration Protocol Metoclopramide HCl 10 mg 02/14/20 00:29 Reglan IV Q6H PRN Nausea And Vomiting Ondansetron HCl 4 mg 02/14/20 00:29 Zofran IV Q3H PRN Nausea And Vomiting Oxycodone/Acetaminophen 1 tab 02/14/20 00:29 Percocet 5/325 PO Q6H PRN Pain, Moderate (4-6) Promethazine HCl 25 mg 02/14/20 00:27 02/14/20 21:18 Phenergan PO 25 mg Q6HR PRN Administration Nausea Sodium Chloride 10 ml 02/14/20 10:00 02/14/20 21:07 Sodium Chloride Flush Syringe 10 Ml IV 10 ml BID KWASI Administration Sodium Chloride 10 ml 02/14/20 00:29 Sodium Chloride Flush Syringe 10 Ml IV PRN PRN LINE FLUSH Nutrition/Malnutrition Assess - Dietary Evaluation Nutrition/Malnutrition Findings: Nutrition Notes Start: 02/14/20 11:48 Freq: Status: Active Protocol: Document 02/14/20 11:48 LM (Rec: 02/14/20 12:36 LM [id number]) Nutrition Notes Need for Assessment generated from: promotions associate,MST Initial or Follow up Assessment Other Pertinent Diagnosis COVID-19 (+), ARF, asthma, acute gastroenteritis Current Diet Regular Labs/Tests Reviewed Pertinent Medications Pepcid Decadron Height 5 ft 2 in Weight 92.2 kg [place] Body Weight (kg) 50.00 BMI 37.1 Intake Prior to Admission Poor Weight change and time frame 4-8% wt loss. Time frame unknown Weight Status Obese Subjective/Other Information RN screen for MST. 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 Foof preferences taken. Pt would like fruit and sandwiches. Pt stated she lost 8 lb but was unable to retrieve time frame. Pt stated her UBW is 220 lb, indicating more than an 8 lb wt loss. Burn Absent Trauma Absent GI Symptoms Nausea,Vomiting,Diarrhea Current % PO Poor (25-49%) Minimum of two criteria Yes Energy Intake (severe) < or equal to 50% Estimated Energy Requirement > or equal to 5 days Interpretation of Weight Loss (severe) >2% in 1 week #1 Nutrition Diagnosis Malnutrition Etiology COVID-19, acute gastroenteritis As Evidenced by Signs and Symptoms Pt with 4-8% wt loss, <50% EER for 5 days Is patient on ventilator? No Is Patient Ambulatory and/or Out of Bed Yes REE-([place]-St. Jeor-ambulatory/OOB) [ 2073.825 NUTR.[id number]] Kcal/Kg value to use for calculation 17 Approximate Energy Requirements Using 1567 kcal/Kg Calculation Used for Recommendations Kcal/kg Additional Notes Protein: 85-107g (1.2-1.5g/kg using AdjBW 71kg) Fluid: 1ml/kcal Nutrition Intervention Change Diet Order: Continue Add Supplement/Snack (indicate name/kcal Ensure Enlive daily /protein ) Provides kCal: 350 Provides Protein (gm) 20 Goal #1 Meet at least 75% of energy and protein needs Anticipated Discharge Needs: Regular diet Follow-Up By: 02/16/20 Additional Comments F/U for intakes
[2020-02-15] MEDS: ACETAMINOPHEN 325 MG TAB PO PRN (20:16)
[2020-02-15] MEDS: FAMOTIDINE 20 MG TAB PO SCH (22:57)
[2020-02-15] MEDS: ENOXAPARIN 40 MG/0.4 ML INJ SUB-Q SCH (22:57)
--- NOTE | 2020-02-16 01:11 | Cat Scan Report ---
CT ANGIOGRAPHY OF THE CHEST WITH INTRAVENOUS CONTRAST AND MULTIPLANAR MIP RECONSTRUCTIONS INDICATION / CLINICAL INFORMATION: Chest pain and shortness of breath. TECHNIQUE: Axial CT images were obtained after injection of 100 cc Omnipaque 350 IV contrast using CTA protocol. 3 plane MIP / 3D reconstructions were produced. All CT scans at this location are performed using CT dose reduction for ALARA by means of automated exposure control. COMPARISON: None available. FINDINGS: There is good opacification of the pulmonary arterial system bilaterally without intraluminal filling defect to suggest acute PTE. The thoracic aorta is normal in caliber without dissection. The visuali zed coronary vessels are unremarkable. Lung volumes are low with moderate bibasilar subsegmental and dependent atelectasis. The tracheobronc hial tree is normal. I see no evidence of pneumonia. There is no evidence of adenopathy or effusion. The gallbladder is surgically absent. The visualized upper abdomen is otherwise normal. No acute osse ous abnormality is seen. IMPRESSION: 1. No evidence of acute PTE. 2. Low lung volumes with moderate bibasilar subsegmental and dependent atelectasis. Signer Name: Omar Taylor MD Signed: 02/16/2020 1:06 AM Workstation Name: [id number]
[2020-02-16] MEDS: IPRATROPIUM/ALBUTEROL SULFATE 3 ML AMPUL.NEB IH SCH ×3 (08:01→21:20)
[2020-02-16] MEDS: cefTRIAXone/NS 2 GM/100 ML 2 GM/100 ML BAG IV SCH (09:05)
[2020-02-16] MEDS: DEXAMETHASONE 4 MG TAB PO SCH (09:07)
[2020-02-16] MEDS: FAMOTIDINE 20 MG TAB PO SCH ×2 (09:07→21:31)
--- NOTE | 2020-02-16 10:43 | Consultation ---
History of Present Illness Reason for consult: dyspnea, asthma History of present illness: This is a 29 yo AAF with hx of asthma, morbid obesity who comes in with sob. She recently tested positive for covid. She has been having increased sob and cough and fevers. she came in last pM and was started on o2. She had cxr which was negative and cta no PE bibasilar atelectasis. Still sob with wheezing but slightly bettr. Reports body aches and cough. Also has been some wheezing ang chest congestion Past History Past Medical History: other (asthma, hx of suicidal ideation as per hx from chart) Past Surgical History: No surgical history Social history: no significant social history Family history: no significant family history (suicidial ideation in the past as per chart) Medications and Allergies Allergies Allergy/AdvReac Type Severity Reaction Status Date / Time shellfish derived AdvReac Intermediate Hives Verified 02/13/20 12:31 Home Medications Medication Instructions Recorded Confirmed Last Taken Type Albuterol Sulfate [Ventolin HFA] 2 puff IH Q4H PRN #1 hfa.aer.ad 03/30/14 06/09/14 Unknown Rx Ciprofloxacin HCl [Ciprofloxacin 500 mg PO Q12H #14 tab 10/27/14 Unknown Rx TAB] Promethazine [Phenergan TAB] 25 mg PO Q6HR PRN #20 tab 10/27/14 Unknown Rx Ibuprofen [Motrin 600 MG tab] 600 mg PO Q8H PRN #30 tablet 12/17/16 Unknown Rx Active Meds: Active Medications Acetaminophen (Tylenol) 650 mg PO Q4H PRN PRN Reason: Pain MILD(1-3)/Fever >100.5/MARTIN Last Admin: 02/15/20 20:16 Dose: 650 mg Documented by: Albuterol (Proair) 2 puff IH Q4HRT PRN PRN Reason: Shortness Of Breath Albuterol/Ipratropium (Duoneb *Not For Prn Use*) 1 ampul IH QIDRT [facility] Last Admin: 02/16/20 08:01 Dose: 1 ampul Documented by: Azithromycin (Zithromax) 500 mg PO QDAY [facility] Stop: 02/18/20 10:01 Last Admin: 02/16/20 09:06 Dose: 500 mg Documented by: Dexamethasone (Decadron) 6 mg PO DAILY [facility] Stop: 02/23/20 10:01 Last Admin: 02/16/20 09:07 Dose: 6 mg Documented by: Enoxaparin Sodium (Enoxaparin) 40 mg SUB-Q QDAY@2200 [facility]; Protocol Last Admin: 02/15/20 22:57 Dose: 40 mg Documented by: Famotidine (Pepcid) 20 mg PO BID [facility] Last Admin: 02/16/20 09:07 Dose: 20 mg Documented by: Guaifenesin (Guaifenesin Dm Syrup) 10 ml PO Q4H PRN PRN Reason: Cough Last Admin: 02/14/20 08:40 Dose: 10 ml Documented by: Hydromorphone HCl (Dilaudid) 0.5 mg IV Q3H PRN PRN Reason: Pain , Severe (7-10) Ceftriaxone Sodium (Rocephin/Ns 2 Gm/100 Ml) 2 gm in 100 mls @ 200 mls/hr IV Q24HR [facility]; Protocol Last Admin: 02/16/20 09:05 Dose: 200 mls/hr Documented by: Metoclopramide HCl (Reglan) 10 mg IV Q6H PRN PRN Reason: Nausea And Vomiting Ondansetron HCl (Zofran) 4 mg IV Q3H PRN PRN Reason: Nausea And Vomiting Oxycodone/Acetaminophen (Percocet 5/325) 1 tab PO Q6H PRN PRN Reason: Pain, Moderate (4-6) Promethazine HCl (Phenergan) 25 mg PO Q6HR PRN PRN Reason: Nausea Last Admin: 02/14/20 21:18 Dose: 25 mg Documented by: Sodium Chloride (Sodium Chloride Flush Syringe 10 Ml) 10 ml IV BID [facility] Last Admin: 02/16/20 09:08 Dose: 10 ml Documented by: Sodium Chloride (Sodium Chloride Flush Syringe 10 Ml) 10 ml IV PRN PRN PRN Reason: LINE FLUSH Review of Systems Constitutional: anorexia, fatigue, weakness Ears, nose, mouth and throat: nasal discharge Breasts: deferred Respiratory: cough, shortness of breath, pleurisy Gastrointestinal: heartburn Musculoskeletal: myalgias Physical Examination Vital signs: Vital Signs Pulse Resp Pulse Ox 108 H 33 H 94 02/13/20 12:12 02/13/20 12:12 02/13/20 12:12 General appearance: alert Eyes: non-icteric ENT: oropharynx dry Neck: supple Ascultation: Bilateral: clear, diminished breath sounds Cardiovascular: regular rate and rhythm Gastrointestinal: normoactive bowel sounds, soft, non-tender, non-distended, other (obese) Integumentary: normal Extremities: no cyanosis Musculoskeletal: no deformities Gait: normal posture normal mental status, non-focal exam mood appropriate, affect normal Results - Laboratory Findings CBC and BMP: 02/14/20 08:29 02/14/20 08:29 PT/INR, D-dimer PT 12.9 Sec. (12.2-14.9) 02/13/20 12:34 INR 0.96 (0.87-1.13) 02/13/20 12:34 D-Dimer 271.95 ng/mlDDU (0-234) H 02/16/20 08:30 Abnormal lab findings: Abnormal Labs 02/13/20 02/13/20 02/13/20 12:34 12:34 12:34 WBC 2.5 L RBC 5.32 H Hgb 15.1 H Hct 44.8 H MCHC RDW 13.1 L [place] % (Auto) 10.5 H Lymph # (Auto) 0.8 L Seg Neuts % (Manual) Lymphocytes % (Manual) Seg Neutrophils # 1.4 L Seg Neutrophils # Man Lymphocytes # (Manual) D-Dimer 329.05 H Sodium 134 L BUN 6 L Creatinine Glucose Ferritin AST ALT Lactate Dehydrogenase 388 H Total Creatine Kinase 227 H Coronavirus (PCR) 02/13/20 02/14/20 02/14/20 12:34 08:29 08:29 WBC 1.6 L* RBC 5.31 H Hgb 15.2 H Hct 43.8 H MCHC 35 H RDW [place] % (Auto) Lymph # (Auto) Seg Neuts % (Manual) 83.0 H Lymphocytes % (Manual) 13.0 L Seg Neutrophils # Seg Neutrophils # Man 1.3 L Lymphocytes # (Manual) 0.2 L D-Dimer Sodium BUN 6 L Creatinine 0.5 L Glucose 123 H Ferritin 2487.0 H AST 122 H ALT 133 H Lactate Dehydrogenase Total Creatine Kinase Coronavirus (PCR) 02/14/20 02/16/20 02/16/20 Unknown 08:30 08:30 WBC RBC Hgb Hct MCHC RDW [place] % (Auto) Lymph # (Auto) Seg Neuts % (Manual) Lymphocytes % (Manual) Seg Neutrophils # Seg Neutrophils # Man Lymphocytes # (Manual) D-Dimer 271.95 H Sodium BUN Creatinine Glucose Ferritin 2000.0 H AST ALT Lactate Dehydrogenase Total Creatine Kinase Coronavirus (PCR) Positive A 02/16/20 08:30 WBC RBC Hgb Hct MCHC RDW [place] % (Auto) Lymph # (Auto) Seg Neuts % (Manual) Lymphocytes % (Manual) Seg Neutrophils # Seg Neutrophils # Man Lymphocytes # (Manual) D-Dimer Sodium BUN Creatinine Glucose Ferritin AST ALT Lactate Dehydrogenase 295 H Total Creatine Kinase Coronavirus (PCR) - Diagnostic Findings Chest x-ray: report reviewed, image reviewed CT scan - chest: report reviewed, image reviewed Assessment and Plan - Patient Problems (1) Asthma Current Visit: Yes Status: Acute (2) Acute respiratory failure with hypoxia Current Visit: Yes Status: Acute (3) Bilateral pneumonia Current Visit: Yes Status: Acute Qualifiers: Pneumonia type: due to unspecified organism Lung location: unspecified part of lung Qualified Code(s): J18.9 - Pneumonia, unspecified organism (4) COVID-19 Current Visit: Yes Status: Acute (5) Hypoxia Current Visit: Yes Status: Acute (6) Neutropenia Current Visit: Yes Status: Acute Qualifiers: Neutropenia type: unspecified Qualified Code(s): D70.9 - Neutropenia, unspecified (7) Morbid obesity Current Visit: Yes Status: Chronic
--- NOTE | 2020-02-16 12:23 | Consultation ---
History of Present Illness - Reason for Consult Consult date: 02/16/20 covid Requesting physician: STEFANIE MENDOSA - History of Present Illness 29 years old female with history of asthma, admitted on 02/13/2020 due to 4-day history of generalized malaise, cough, loss of taste, loss of smell, and shortness of breath. Patient tested positive for COVID-19 on 02/08/2020. Den ies any family members infected. On arrival, temperature 98.9, HR 108, RR 33, O2 sat 94%, BP 122/82. Initial WBC 2.5. Platelets 151. Creatinine 0.6. AST 122. ALT 133. CK 2264. LDH 388. Ferritin 2487. Procalcitonin normal. Urinalysis negative. Blood culture no growth today. Chest CTA shows no pulmonary embolism, bibasilar atelectasis. Patient is currently on 2 L nasal cannula O2. Review of Systems: reviewed ED and H&P notes. Limited due to PPE conservation strategy Past History Past Medical History: other (asthma, hx of suicidal ideation as per hx from chart) Past Surgical History: No surgical history Social history: no significant social history Family history: no significant family history (suicidial ideation in the past as per chart) Medications and Allergies Allergies Allergy/AdvReac Type Severity Reaction Status Date / Time shellfish derived AdvReac Intermediate Hives Verified 02/13/20 12:31 Home Medications Medication Instructions Recorded Confirmed Last Taken Type Albuterol Sulfate [Ventolin HFA] 2 puff IH Q4H PRN #1 hfa.aer.ad 03/30/14 Unknown Rx Ciprofloxacin HCl [Ciprofloxacin 500 mg PO Q12H #14 tab 10/27/14 Unknown Rx TAB] Promethazine [Phenergan TAB] 25 mg PO Q6HR PRN #20 tab 10/27/14 Unknown Rx Ibuprofen [Motrin 600 MG tab] 600 mg PO Q8H PRN #30 tablet 12/17/16 Unknown Rx Active Meds: Active Medications Acetaminophen (Tylenol) 650 mg PO Q4H PRN PRN Reason: Pain MILD(1-3)/Fever >100.5/MARTIN Last Admin: 02/15/20 20:16 Dose: 650 mg Documented by: Albuterol (Proair) 2 puff IH Q4HRT PRN PRN Reason: Shortness Of Breath Albuterol/Ipratropium (Duoneb *Not For Prn Use*) 1 ampul IH QIDRT [facility] Last Admin: 02/16/20 08:01 Dose: 1 ampul Documented by: Arformoterol Tartrate (Brovana Nebu) 15 mcg IH Q12HRT [facility] Azithromycin (Zithromax) 500 mg PO QDAY [facility] Stop: 02/18/20 10:01 Last Admin: 02/16/20 09:06 Dose: 500 mg Documented by: Budesonide (Pulmicort) 0.25 mg IH Q12HRT [facility] Dexamethasone (Decadron) 6 mg PO DAILY [facility] Stop: 02/23/20 10:01 Last Admin: 02/16/20 09:07 Dose: 6 mg Documented by: Enoxaparin Sodium (Enoxaparin) 40 mg SUB-Q QDAY@2200 [facility]; Protocol Last Admin: 02/15/20 22:57 Dose: 40 mg Documented by: Famotidine (Pepcid) 20 mg PO BID [facility] Last Admin: 02/16/20 09:07 Dose: 20 mg Documented by: Guaifenesin (Guaifenesin Dm Syrup) 10 ml PO Q4H PRN PRN Reason: Cough Last Admin: 02/14/20 08:40 Dose: 10 ml Documented by: Hydromorphone HCl (Dilaudid) 0.5 mg IV Q3H PRN PRN Reason: Pain , Severe (7-10) Ceftriaxone Sodium (Rocephin/Ns 2 Gm/100 Ml) 2 gm in 100 mls @ 200 mls/hr IV Q24HR [facility]; Protocol Last Admin: 02/16/20 09:05 Dose: 200 mls/hr Documented by: Metoclopramide HCl (Reglan) 10 mg IV Q6H PRN PRN Reason: Nausea And Vomiting Ondansetron HCl (Zofran) 4 mg IV Q3H PRN PRN Reason: Nausea And Vomiting Oxycodone/Acetaminophen (Percocet 5/325) 1 tab PO Q6H PRN PRN Reason: Pain, Moderate (4-6) Promethazine HCl (Phenergan) 25 mg PO Q6HR PRN PRN Reason: Nausea Last Admin: 02/14/20 21:18 Dose: 25 mg Documented by: Sodium Chloride (Sodium Chloride Flush Syringe 10 Ml) 10 ml IV BID [facility] Last Admin: 02/16/20 09:08 Dose: 10 ml Documented by: Sodium Chloride (Sodium Chloride Flush Syringe 10 Ml) 10 ml IV PRN PRN PRN Reason: LINE FLUSH Physical Examination - Physical Exam Narrative exam: Physical Exam: reviewed ED and hospitalist notes, limited due to conservation of PPE and decrease risk of transmission. General appearance: limited due to conservation of PPE Eyes: limited due to conservation of PPE HENT: Atraumatic; limited due to conservation of PPE Lungs: limited due to conservation of PPE CV: limited due to conservation of PPE Abdomen: limited due to conservation of PPE Extremities: limited due to conservation of PPE Skin: limited due to conservation of PPE Psych: limited due to conservation of PPE Neuro: limited due to conservation of PPE - Constitutional Vitals: Vital Signs Temp Pulse Resp BP Pulse Ox 98.8 F 94 H 18 97/63 93 02/16/20 05:22 02/16/20 08:01 02/16/20 08:01 02/16/20 05:22 02/16/20 09:16 Temperature -Last 24 Hours Temperature 98.8 F Temperature 98.7 F Temperature 97.4 F Results - Labs CBC & Chem 7: 02/14/20 08:29 02/14/20 08:29 Labs: Abnormal lab results 02/16/20 02/16/20 02/16/20 Range/Units 08:30 08:30 08:30 D-Dimer 271.95 H (0-234) ng/mlDDU Ferritin 2000.0 H (10.0-200.0) ng/mL Lactate Dehydrogenase 295 H (91-180) units/L Assessment and Plan Cultures: Blood culture no growth today SARS CoV2 PCR positive Assessment: 29 years old female with history of asthma, admitted on 02/13/2020 due to 4-day history of generalized malaise, cough, loss of taste and smell and progressive shortness of breath, she tested positive for COVID-19 on 02/08/2020: #Severe COVID pneumonia: Inflammatory markers elevated. #Acute hypoxemic respiratory failure: Sats dropped to 51%, now on 2 L nasal cannula. #Elevated LFTs: from COVID Recommendations: Continue dexamethasone 6 mg IV/PO daily for 10 days Start Remdesivir 200 mg IV q day x 1 day followed by 100 mg IV q day x 4 days (CrCl>30. Order placed) Monitor inflammatory markers - ferritin, Ddimer, CRP, LDH Stop ceftriaxone and azithromycin, procalcitonin <0.25 ng/mL Monitor liver function test on Remdesivir Continue anticoagulation per System Protocol Prone positioning as possible Obtain SARS CoV-2 IgG to determine if patient is a candidate for COVID convalescent plasma Pulmonary on board All laboratory, cultures and imaging were reviewed. High risk for deterioration. Will follow Roma Winters MD Infectious Diseases Job Checker [facility] ([facility] M [phone] O [phone]
[2020-02-16] MEDS: ARFORMOTEROL 15 MCG/2 ML NEBU IH SCH ×2 (12:57→21:19)
[2020-02-16] MEDS: BUDESONIDE 0.25 MG/2 ML NEBU IH SCH ×2 (12:57→21:20)
[2020-02-16] MEDS ORDERED: SODIUM CHLORIDE 0.9% 50 ML IVPB IV SCH (13:00)
[2020-02-16] MEDS ORDERED: REMDESIVIR 100 MG VIAL IV ONE (13:30)
[2020-02-16] MEDS ORDERED: REMDESIVIR 200 MG in SODIUM CHLORIDE 0.9% 250ML 250 ML IV ONE (13:30)
--- NOTE | 2020-02-16 14:00 | Vascular Lab Report ---
DUPLEX DOPPLER LOWER EXTREMITY VEINS, BILATERAL INDICATION / CLINICAL INFORMATION: Bilateral lower extremity pain and swelling. TECHNIQUE: Duplex doppler imaging was performed through the veins of both lower extremities using venous audi clark and other maneuvers. COMPARISON: None available. FINDINGS: RIGHT COMMON FEMORAL VEIN: Negative. RIGHT FEMORAL VEIN: Negative. RIGHT POPLITEAL VEIN: Negative. RIGHT CALF VEINS: Negative. LEFT COMMON FEMORAL VEIN: Negative. LEFT FEMORAL VEIN: Negative. LEFT POPLITEAL VEIN: Negative. LEFT CALF VEINS: Negative. ADDITIONAL FINDINGS: None. IMPRESSION: 1. No sonographic evidence for DVT in either lower extremity. Signer Name: Arya Andrea MD Signed: 02/16/2020 1:55 PM Workstation Name: [id number]
[2020-02-16] MEDS: ACETAMINOPHEN 325 MG TAB PO PRN (14:42)
[2020-02-16 16:26] LABS: Hemoglobin 14.4 gm/dl (10.1-14.3); Mean Corpuscular HGB Conc 34 % (30-34); Mean Corpuscular Volume 84 fl (79-97); Platelet Count 173 K/mm3 (140-440); Red Blood Count 5.02 M/mm3 (3.65-5.03); Red Cell Distribution Width 13.3 % (13.2-15.2)
--- NOTE | 2020-02-16 17:19 | Progress Note ---
Assessment and Plan - Patient Problems (1) COVID-19 Current Visit: Yes Status: Acute Plan to address problem: - Presented with positive COVID PCR from OSH - (+) exposure to COVID - ID consulted - On azithromycin and Rocephin on 02/13 however CRP and procalcitonin normal, will wait ID input to DC, DC by ID on 02/15 - COVID 19 PCR (+) in house - Supplemental oxygenation as needed - Pulmanory hygiene - OOB TID and prn - Dexamethasone 6mg PO x10 days started on 02/13-02/22 - Trend COVID markers - Anticoagulation per protocol - 02/14 pulmonology consulted - 02/15 initiated remdesivir by ID - Per ID: Obtain SARS CoV-2 IgG to determine if patient is a candidate for COVID convalescent plasma (2) Acute respiratory failure with hypoxia Current Visit: Yes Status: Acute Plan to address problem: - Supplemental oxygenation as needed - Pulmonary hygiene (3) Bilateral pneumonia Current Visit: Yes Status: Acute Qualifiers: Pneumonia type: due to unspecified organism Lung location: unspecified part of lung Qualified Code(s): J18.9 - Pneumonia, unspecified organism Plan to address problem: - 2/2 covid 19 - Admit CXR showed no acute abnormality -02/15 CTh showed bibasilar subsegmental atelectasis - 02/14 COVID-19 PCR positive - Pulmonary hygiene - Supplemental oxygenation as needed - Covid therapies initiated (4) Neutropenia Current Visit: Yes Status: Acute Qualifiers: Neutropenia type: unspecified Qualified Code(s): D70.9 - Neutropenia, unspecified Plan to address problem: - likely 2/2 to covid - Neutropenic precautions - Presented with WBC 2.5 now 1.6 on 02/13, WBC 4.3 on 02/15 - Trend CBC (5) Acute gastroenteritis Current Visit: No Status: Acute Plan to address problem: - likely 2/2 to COVID - Suppprotive care - Antiemetic prn (6) Asthma Current Visit: No Status: Chronic Plan to address problem: - H/O asthma - Resume home pulm regimen - Supportive care - Pulmonary hygiene - Supplemental oxygen as needed - Pulmonology consulted (7) Morbid obesity Current Visit: Yes Status: Chronic Plan to address problem: - Wt loss counseling - Consider bariatric surgery outpt (8) Elevated d-dimer Current Visit: Yes Status: Acute Plan to address problem: - Admit ddimer 329, 02/15 271.95 - Anticoagulation per protocol - 02/14 BLE venous dopplar US shows no acute DVT - 02/14 CTA shows no acute pulmonary medicine (9) Transaminitis Current Visit: Yes Status: Acute Plan to address problem: - Presented with AST 122/ ALT 133 - Trend LFTS - likely 2/2 to COVID - 02/15 initiated on remdesivir therapy (10) DVT prophylaxis Current Visit: No Status: Acute Plan to address problem: - GI and DVT prophylaxis - SCDS to BLE while in bed History Interval history: 37-year-old female with asthma comes in for increasing shortness of breath for 5 days, coughing, body aches and shortness of breath on 02/12. Patient was apparently tested positive for coronavirus on 02/08/2020. Recommend emergency department included a CXR which showed suboptimal inspiration but no definite acute disease. Upon arrival she was leukopenic, slightly hyponatremic, elevated D-dimer and had transaminitis. Due to her admit D-dimer of 329 with need for supplemental oxygenation a CTA chest was obtained which showed no acute pulmonary embolism but showed low lung volumes with moderate bibasilar subsegmen jovi and dependent atelectasis. Infectious disease and pulmonology were consulted. Patient was initiated on remdesivir today and and she is on dexamethasone daily. Hospitalist Physical - Physical exam Narrative exam: Not conducted today for consultation of PPE and to limit exposure to COVID-19 - Constitutional Vitals: Temp Pulse Resp BP Pulse Ox 99.1 F 96 H 15 119/69 96 02/16/20 12:31 02/16/20 12:57 02/16/20 15:42 02/16/20 12:31 02/16/20 14:10 General appearance: Present: no acute distress, well-nourished HEART Score - HEART Score Troponin: Troponin T < 0.010 ng/mL (0.00-0.029) 02/13/20 12:34 Results - Labs CBC & Chem 7: 02/16/20 16:01 02/14/20 08:29 Labs: Laboratory Last Values WBC 4.3 K/mm3 (4.5-11.0) L 02/16/20 16:01 RBC 5.02 M/mm3 (3.65-5.03) 02/16/20 16:01 Hgb 14.4 gm/dl (10.1-14.3) H 02/16/20 16:01 Hct 42.0 % (30.3-42.9) 02/16/20 16:01 MCV 84 fl (79-97) 02/16/20 16:01 MCH 29 pg (28-32) 02/16/20 16:01 MCHC 34 % (30-34) 02/16/20 16:01 RDW 13.3 % (13.2-15.2) 02/16/20 16:01 Plt Count 173 K/mm3 (140-440) 02/16/20 16:01 Lymph % (Auto) 32.3 % (13.4-35.0) 02/13/20 12:34 Peach % (Auto) 10.5 % (0.0-7.3) H 02/13/20 12:34 Eos % (Auto) 0.1 % (0.0-4.3) 02/13/20 12:34 Baso % (Auto) 0.3 % (0.0-1.8) 02/13/20 12:34 Lymph # (Auto) 0.8 K/mm3 (1.2-5.4) L 02/13/20 12:34 Peach # (Auto) 0.3 K/mm3 (0.0-0.8) 02/13/20 12:34 Eos # (Auto) 0.0 K/mm3 (0.0-0.4) 02/13/20 12:34 Baso # (Auto) 0.0 K/mm3 (0.0-0.1) 02/13/20 12:34 Add Manual Diff Complete 02/14/20 08:29 Total Counted 100 02/14/20 08:29 Seg Neutrophils % 56.8 % (40.0-70.0) 02/13/20 12:34 Seg Neuts % (Manual) 83.0 % (40.0-70.0) H 02/14/20 08:29 Band Neutrophils % 3.0 % 02/14/20 08:29 Lymphocytes % (Manual) 13.0 % (13.4-35.0) L 02/14/20 08:29 Reactive Lymphs % (Man) 0 % 02/14/20 08:29 Monocytes % (Manual) 1.0 % (0.0-7.3) 02/14/20 08:29 Eosinophils % (Manual) 0 % (0.0-4.3) 02/14/20 08:29 Basophils % (Manual) 0 % (0.0-1.8) 02/14/20 08: Metamyelocytes % 0 % 02/14/20 08: Myelocytes % 0 % 02/14/20 08: Promyelocytes % 0 % 02/14/20 08:29 Blast Cells % 0 % 02/14/20 08:29 Nucleated RBC % Not Reportable 02/14/20 08:29 Seg Neutrophils # 1.4 K/mm3 (1.8-7.7) L 02/13/20 12:34 Seg Neutrophils # Man 1.3 K/mm3 (1.8-7.7) L 02/14/20 08:29 Band Neutrophils # 0.0 K/mm3 02/14/20 08:29 Lymphocytes # (Manual) 0.2 K/mm3 (1.2-5.4) L 02/14/20 08:29 Abs React Lymphs (Man) 0.0 K/mm3 02/14/20 08: Monocytes # (Manual) 0.0 K/mm3 (0.0-0.8) 02/14/20 08:29 Eosinophils # (Manual) 0.0 K/mm3 (0.0-0.4) 02/14/20 08:29 Basophils # (Manual) 0.0 K/mm3 (0.0-0.1) 02/14/20 08: Metamyelocytes # 0.0 K/mm3 02/14/20 08:29 Myelocytes # 0.0 K/mm3 02/14/20 08:29 Promyelocytes # 0.0 K/mm3 02/14/20 08:29 Blast Cells # 0.0 K/mm3 02/14/20 08:29 WBC Morphology Not Reportable 02/14/20 08:29 Hypersegmented Neuts Not Reportable 02/14/20 08:29 Hyposegmented Neuts Not Reportable 02/14/20 08:29 Hypogranular Neuts Not Reportable 02/14/20 08:29 Smudge Cells Not Reportable 02/14/20 08:29 Toxic Granulation Not Reportable 02/14/20 08:29 Toxic Vacuolation Not Reportable 02/14/20 08:29 Dohle Bodies Not Reportable 02/14/20 08:29 Pelger-Huet Anomaly Not Reportable 02/14/20 08:29 Jassi Rods Not Reportable 02/14/20 08:29 Platelet Estimate Consistent w auto 02/14/20 08:29 Clumped Platelets Not Reportable 02/14/20 08:29 Plt Clumps, EDTA Not Reportable 02/14/20 08:29 Large Platelets Not Reportable 02/14/20 08:29 Giant Platelets Not Reportable 02/14/20 08:29 Platelet Satelliting Not Reportable 02/14/20 08:29 Plt Morphology Comment Not Reportable 02/14/20 08:29 RBC Morphology Normal 02/14/20 08:29 Dimorphic RBCs Not Reportable 02/14/20 08:29 Polychromasia Not Reportable 02/14/20 08:29 Hypochromasia Not Reportable 02/14/20 08:29 Poikilocytosis Not Reportable 02/14/20 08:29 Anisocytosis Not Reportable 02/14/20 08:29 Microcytosis Not Reportable 02/14/20 08:29 Macrocytosis Not Reportable 02/14/20 08:29 Spherocytes Not Reportable 02/14/20 08:29 Pappenheimer Bodies Not Reportable 02/14/20 08:29 Sickle Cells Not Reportable 02/14/20 08:29 Target Cells Not Reportable 02/14/20 08:29 Tear Drop Cells Not Reportable 02/14/20 08:29 Ovalocytes Not Reportable 02/14/20 08:29 Helmet Cells Not Reportable 02/14/20 08:29 Arana-Elsmore Bodies Not Reportable 02/14/20 08:29 [employer] [place] Rings Not Reportable 02/14/20 08:29 [place] Cells Not Reportable 02/14/20 08:29 Bite Cells Not Reportable 02/14/20 08:29 Crenated Cell Not Reportable 02/14/20 08:29 Elliptocytes Not Reportable 02/14/20 08:29 Acanthocytes (Spur) Not Reportable 02/14/20 08:29 Rouleaux Not Reportable 02/14/20 08:29 Hemoglobin C Crystals Not Reportable 02/14/20 08:29 Schistocytes Not Reportable 02/14/20 08:29 Malaria parasites Not Reportable 02/14/20 08:29 [place] Bodies Not Reportable 02/14/20 08:29 Hem Pathologist Commnt No 02/14/20 08:29 PT 12.9 Sec. (12.2-14.9) 02/13/20 12:34 INR 0.96 (0.87-1.13) 02/13/20 12:34 APTT 32.6 Sec. (24.2-36.6) 02/13/20 12:34 D-Dimer 271.95 ng/mlDDU (0-234) H 02/16/20 08:30 Sodium 137 mmol/L (137-145) 02/14/20 08:29 Potassium 4.2 mmol/L (3.6-5.0) 02/14/20 08:29 Chloride 103.9 mmol/L (98-107) 02/14/20 08:29 Carbon Dioxide 22 mmol/L (22-30) 02/14/20 08:29 Anion Gap 15 mmol/L 02/14/20 08:29 BUN 6 mg/dL (7-17) L 02/14/20 08:29 Creatinine 0.5 mg/dL (0.6-1.2) L 02/14/20 08:29 Estimated GFR > 60 ml/min 02/14/20 08:29 BUN/Creatinine Ratio 12 % 02/14/20 08:29 Glucose 123 mg/dL (65-100) H 02/14/20 08:29 POC Glucose 83 mg/dL (70-105) 02/16/20 13:28 Lactic Acid 1.00 mmol/L (0.7-2.0) 02/13/20 12:34 Calcium 9.0 mg/dL (8.4-10.2) 02/14/20 08:29 Magnesium 1.80 mg/dL (1.7-2.3) 02/13/20 12:34 Ferritin 2000.0 ng/mL (10.0-200.0) H 02/16/20 08:30 Total Bilirubin 0.40 mg/dL (0.1-1.2) 02/14/20 08:29 AST 122 units/L (5-40) H 02/14/20 08:29 ALT 133 units/L (7-56) H 02/14/20 08:29 Alkaline Phosphatase 98 units/L (35-129) 02/14/20 08:29 Lactate Dehydrogenase 295 units/L (91-180) H 02/16/20 08:30 Total Creatine Kinase 227 units/L (30-135) H 02/13/20 12:34 CK-MB (CK-2) < 1.0 ng/mL (0.0-4.0) 02/13/20 12:34 CK-MB (CK-2) Rel Index 0.4 (0-4) 02/13/20 12:34 Troponin T < 0.010 ng/mL (0.00-0.029) 02/13/20 12:34 C-Reactive Protein 0.40 mg/dL (0.00-1.30) 02/13/20 12:34 NT-Pro-B Natriuret Pep 7.77 pg/mL (0-450) 02/13/20 12:34 Total Protein 7.6 g/dL (6.3-8.2) 02/14/20 08:29 Albumin 3.9 g/dL (3.9-5) 02/14/20 08:29 Albumin/Globulin Ratio 1.1 % 02/14/20 08:29 Procalcitonin < 0.05 ng/mL (<0.15) 02/13/20 12:34 Urine Color Yellow (Yellow) 02/13/20 15:00 Urine Turbidity Slightly-cloudy (Clear) 02/13/20 15:00 Urine pH 7.0 (5.0-7.0) 02/13/20 15:00 Ur Specific [place] 1.006 (1.003-1.030) 02/13/20 15:00 Urine Protein <15 mg/dl mg/dL (Negative) 02/13/20 15:00 Urine Glucose (UA) Neg mg/dL (Negative) 02/13/20 15:00 Urine Ketones Tr mg/dL (Negative) 02/13/20 15:00 Urine Blood Neg (Negative) 02/13/20 15:00 Urine Nitrite Neg (Negative) 02/13/20 15:00 Urine Bilirubin Neg (Negative) 02/13/20 15:00 Urine Urobilinogen < 2.0 mg/dL (<2.0) 02/13/20 15:00 Ur Leukocyte Esterase Neg (Negative) 02/13/20 15:00 Urine WBC (Auto) 1.0 /HPF (0.0-6.0) 02/13/20 15:00 Urine RBC (Auto) 1.0 /HPF (0.0-6.0) 02/13/20 15:00 U Epithel Cells (Auto) 8.0 /HPF (0-13.0) 02/13/20 15:00 Urine HCG, Qual Negative (Negative) 02/13/20 15:00 Urine Opiates Screen Negative 02/13/20 15:00 Urine Methadone Screen Negative 02/13/20 15:00 Ur Barbiturates Screen Negative 02/13/20 15:00 Ur Phencyclidine Scrn Negative 02/13/20 15:00 Ur Amphetamines Screen Negative 02/13/20 15:00 U Benzodiazepines Scrn Negative 02/13/20 15:00 Urine Cocaine Screen Negative 02/13/20 15:00 U Marijuana (THC) Screen Negative 02/13/20 15:00 Drugs of Abuse Note Disclamer 02/13/20 15:00 Coronavirus (PCR) Positive (Negative) A 02/14/20 Unknown SARS-CoV-2 IgG Ab Nonreactive (NonReactive) 02/16/20 16:01 Microbiology: Microbiology 02/13/20 12:34 Peripheral/Venous Blood Culture - Preliminary NO GROWTH AFTER 72 HOURS 02/13/20 12:34 Peripheral/Venous Blood Culture - Preliminary NO GROWTH AFTER 72 HOURS Hale/IV: Voiding Method Toilet IV Catheter Type [Right Hand] Peripheral IV Active Medications - Current Medications Current Medications: Generic Name Dose Route Start Last Admin Trade Name Freq PRN Reason Stop Dose Admin Acetaminophen 650 mg 02/14/20 00:29 02/16/20 14:42 Tylenol PO 650 mg Q4H PRN Administration Pain MILD(1-3)/Fever >100.5/MARTIN Albuterol 2 puff 02/14/20 21:27 Proair IH Q4HRT PRN Shortness Of Breath Albuterol/Ipratropium 1 ampul 02/16/20 20:00 Duoneb *Not For Prn Use* IH TIDRT [facility]I Arformoterol Tartrate 15 mcg 02/16/20 10:45 02/16/20 12:57 Brovana Nebu IH 15 mcg Q12HRT [facility]I Administration Budesonide 0.25 mg 02/16/20 10:45 02/16/20 12:57 Pulmicort IH 0.25 mg Q12HRT [facility]I Administration Dexamethasone 6 mg 02/14/20 10:00 02/16/20 09:07 Decadron PO 02/23/20 10:01 6 mg DAILY [facility] Administration Enoxaparin Sodium 40 mg 02/14/20 22:00 02/15/20 22:57 Enoxaparin SUB-Q 40 mg QDAY@2200 [facility] Administration Protocol Famotidine 20 mg 02/14/20 10:00 02/16/20 09:07 Pepcid PO 20 mg BID [facility] Administration Guaifenesin 10 ml 02/14/20 02:20 02/14/20 08:40 Guaifenesin Dm Syrup PO 10 ml Q4H PRN Administration Cough Hydromorphone HCl 0.5 mg 02/14/20 00:29 Dilaudid IV Q3H PRN Pain , Severe (7-10) REMDESIVIR 100 mg/ Sodium 250 mls @ 500 mls/hr 02/17/20 21:00 Chloride IV 02/20/20 21:29 Q24HR@2100 [facility] Metoclopramide HCl 10 mg 02/14/20 00:29 Reglan IV Q6H PRN Nausea And Vomiting Ondansetron HCl 4 mg 02/14/20 00:29 Zofran IV Q3H PRN Nausea And Vomiting Oxycodone/Acetaminophen 1 tab 02/14/20 00:29 Percocet 5/325 PO Q6H PRN Pain, Moderate (4-6) Promethazine HCl 25 mg 02/14/20 00:27 02/14/20 21:18 Phenergan PO 25 mg Q6HR PRN Administration Nausea Sodium Chloride 10 ml 02/14/20 10:00 02/16/20 09:08 Sodium Chloride Flush Syringe 10 Ml IV 10 ml BID [facility]I Administration Sodium Chloride 10 ml 02/14/20 00:29 Sodium Chloride Flush Syringe 10 Ml IV PRN PRN LINE FLUSH Sodium Chloride 50 ml 02/16/20 13:00 02/16/20 14:41 Nacl 0.9% IV 02/20/20 13:01 50 ml Q24H [facility]I Administration Nutrition/Malnutrition Assess - Dietary Evaluation Nutrition/Malnutrition Findings: Nutrition Notes Start: 02/14/20 11:48 Freq: Status: Active Protocol: Document 02/16/20 13:20 EVETTE (Rec: 02/16/20 13:26 EVETTE [id number]) Co-Sign 02/16/20 13:20 LM Nutrition Notes Initial or Follow up Reassessment Other Pertinent Diagnosis COVID-19 (+), ARF, asthma, acute gastroenteritis Current Diet Regular Labs/Tests Reviewed Pertinent Medications Reviewed Height 5 ft 2 in Weight 93 kg [place] Body Weight (kg) 50.00 BMI 37.5 Intake Prior to Admission Poor Weight change and time frame 4-8% wt loss. Time frame unknown Weight Status Obese Subjective/Other Information F/u intakes. Pt did not answer phone. Per RN, pt ate 50% of breakfast. Percent of energy/protein needs met: 95%/76% Burn Absent Trauma Absent GI Symptoms None Current % PO Poor (25-49%) Minimum of two criteria Yes Energy Intake (severe) < or equal to 50% Estimated Energy Requirement > or equal to 5 days Interpretation of Weight Loss (severe) >2% in 1 week #2 Nutrition Diagnosis Inadequate oral intake Etiology gastroenteritis and infection As Evidenced by Signs and Symptoms pt had N/V/D upon admission and intakes of 0-50% during adm. #1 Nutrition Diagnosis Malnutrition Diagnosis Progress(for reassessment Continues documentation) Is patient on ventilator? No Is Patient Ambulatory and/or Out of Bed Yes REE-([place]-ambulatory/OOB) [ 2083. [id number]] Kcal/Kg value to use for calculation 17 Approximate Energy Requirements Using 1581 kcal/Kg Calculation Used for Recommendations Kcal/kg Additional Notes Protein: 85-107g (1.2-1.5g/kg using AdjBW 71kg) Fluid: 1ml/kcal Nutrition Intervention Change Diet Order: Continue Add Supplement/Snack (indicate name/kcal Ensure Enlive daily /protein ) Provides kCal: 350 Provides Protein (gm) 20 Goal #1 Meet at least 75% of energy and protein needs Anticipated Discharge Needs: Regular diet Follow-Up By: 02/22/20 Additional Comments F/u stable intakes
[2020-02-16] MEDS: ENOXAPARIN 40 MG/0.4 ML INJ SUB-Q SCH (21:31)
[2020-02-17] MEDS: guaiFENesin DM 200/20 MG ORAL LIQD 10 ML PO PRN ×2 (05:55→21:24)
[2020-02-17 09:29] LABS: Alanine Aminotransferase 128 units/L (7-56); Albumin 3.7 g/dL (3.9-5); BUN/Creatinine Ratio 15; Blood Urea Nitrogen 9 mg/dL (7-17); Calcium 8.9 mg/dL (8.4-10.2); Hemolysis Index 14
[2020-02-17] MEDS: ARFORMOTEROL 15 MCG/2 ML NEBU IH SCH ×2 (09:58→21:27)
[2020-02-17] MEDS: BUDESONIDE 0.25 MG/2 ML NEBU IH SCH ×2 (09:59→21:27)
[2020-02-17] MEDS: IPRATROPIUM/ALBUTEROL SULFATE 3 ML AMPUL.NEB IH SCH ×3 (09:59→21:27)
[2020-02-17] MEDS: FAMOTIDINE 20 MG TAB PO SCH ×2 (10:15→21:26)
[2020-02-17] MEDS: DEXAMETHASONE 4 MG TAB PO SCH (10:15)
--- NOTE | 2020-02-17 15:35 | Progress Note ---
Assessment and Plan Cultures: Blood culture no growth today SARS CoV2 PCR positive SARS CoV2 IgG negative Assessment: 29 years old female with history of asthma, admitted on 02/13/2020 due to 4-day history of generalized malaise, cough, loss of taste and smell and progressive shortness of breath, she tested positive for COVID-19 on 02/08/2020: #Severe COVID pneumonia: Inflammatory markers elevated. #Acute hypoxemic respiratory failure: Initial Sats dropped to 51%, now on 3 L nasal cannula. #Elevated LFTs: from COVID Recommendations: -SARS CoV-2 IgG is negative, patient may benefit from COVID convalescent plasma Continue dexamethasone 6 mg IV/PO daily for 10 days -Continue Remdesivir - day 2 of 5 -Monitor inflammatory markers - ferritin, Ddimer, CRP, LDH -Monitor liver function test on Remdesivir -Continue anticoagulation per System Protocol -Prone positioning as possible -Pulmonary on board All laboratory, cultures and imaging were reviewed. High risk for deterioration. Will follow Roma Winters MD Infectious Diseases Practice Support Specialist [facility], [place], [facility]ated [facility] ([facility]) M [phone] O [phone] Subjective Date of service: 02/17/20 Principal diagnosis: Acute resp failure with hypoxia,Covid positive Interval history: Remains on 3L NC no fever Objective - Exam Narrative Exam: Physical Exam: reviewed ED and hospitalist notes, limited due to conservation of PPE and decrease risk of transmission. General appearance: limited due to conservation of PPE Eyes: limited due to conservation of PPE HENT: Atraumatic; limited due to conservation of PPE Lungs: limited due to conservation of PPE CV: limited due to conservation of PPE Abdomen: limited due to conservation of PPE Extremities: limited due to conservation of PPE Skin: limited due to conservation of PPE Psych: limited due to conservation of PPE Neuro: limited due to conservation of PPE - Constitutional Vitals: Vital Signs Temp Pulse Resp BP Pulse Ox 98.5 F 109 H 18 149/85 100 02/17/20 11:52 02/17/20 11:52 02/17/20 11:52 02/17/20 11:52 02/17/20 11:52 Temperature -Last 24 Hours Temperature 98.5 F Temperature 98.7 F Temperature 98.6 F - Labs CBC & Chem 7: 02/16/20 16:01 02/17/20 08:26 Labs: Abnormal lab results 02/16/20 02/16/20 02/17/20 Range/Units 16:01 17:24 07:57 WBC 4.3 L (4.5-11.0) K/mm3 Hgb 14.4 H (10.1-14.3) gm/dl POC Glucose 126 H 69 L (70-105) mg/dL AST (5-40) units/L ALT (7-56) units/L Albumin (3.9-5) g/dL 02/17/20 Range/Units 08:26 WBC (4.5-11.0) K/mm3 Hgb (10.1-14.3) gm/dl POC Glucose (70-105) mg/dL AST 64 H (5-40) units/L ALT 128 H (7-56) units/L Albumin 3.7 L (3.9-5) g/dL
--- NOTE | 2020-02-17 17:17 | Progress Note ---
Assessment and Plan Imp: 1. Covid-19 2. Viral pneumonia 3. Acute respiratory failure, hypoxia 4. Obesity Rec: 1. Cont. steroids, Remdesivir 2. Monitor inflammatory markers 3. Cont. current dose of Lovenox 4. Further plans pending clinical course Subjective Date of service: 02/17/20 Principal diagnosis: Acute resp failure with hypoxia,Covid positive Interval history: No events. On 2L NC. Active Medications Acetaminophen (Tylenol) 650 mg PO Q4H PRN PRN Reason: Pain MILD(1-3)/Fever >100.5/MARTIN Last Admin: 02/16/20 14:42 Dose: 650 mg Documented by: Albuterol (Proair) 2 puff IH Q4HRT PRN PRN Reason: Shortness Of Breath Albuterol/Ipratropium (Duoneb *Not For Prn Use*) 1 ampul IH TIDRT [facility] Last Admin: 02/17/20 16:06 Dose: 1 ampul Documented by: Arformoterol Tartrate (Brovana Nebu) 15 mcg IH Q12HRT [facility] Last Admin: 02/17/20 09:58 Dose: 15 mcg Documented by: Budesonide (Pulmicort) 0.25 mg IH Q12HRT [facility] Last Admin: 02/17/20 09:59 Dose: 0.25 mg Documented by: Dexamethasone (Decadron) 6 mg PO DAILY [facility] Stop: 02/23/20 10:01 Last Admin: 02/17/20 10:15 Dose: 6 mg Documented by: Enoxaparin Sodium (Enoxaparin) 40 mg SUB-Q QDAY@2200 [facility]; Protocol Last Admin: 02/16/20 21:31 Dose: 40 mg Documented by: Famotidine (Pepcid) 20 mg PO BID [facility] Last Admin: 02/17/20 10:15 Dose: 20 mg Documented by: Guaifenesin (Guaifenesin Dm Syrup) 10 ml PO Q4H PRN PRN Reason: Cough Last Admin: 02/17/20 05:55 Dose: 10 ml Documented by: Hydromorphone HCl (Dilaudid) 0.5 mg IV Q3H PRN PRN Reason: Pain , Severe (7-10) REMDESIVIR 100 mg/ Sodium (Chloride) 250 mls @ 500 mls/hr IV Q24HR@2100 [facility] Stop: 02/20/20 21:29 Metoclopramide HCl (Reglan) 10 mg IV Q6H PRN PRN Reason: Nausea And Vomiting Ondansetron HCl (Zofran) 4 mg IV Q3H PRN PRN Reason: Nausea And Vomiting Oxycodone/Acetaminophen (Percocet 5/325) 1 tab PO Q6H PRN PRN Reason: Pain, Moderate (4-6) Promethazine HCl (Phenergan) 25 mg PO Q6HR PRN PRN Reason: Nausea Last Admin: 02/14/20 21:18 Dose: 25 mg Documented by: Sodium Chloride (Sodium Chloride Flush Syringe 10 Ml) 10 ml IV BID [facility] Last Admin: 02/17/20 10:16 Dose: 10 ml Documented by: Sodium Chloride (Sodium Chloride Flush Syringe 10 Ml) 10 ml IV PRN PRN PRN Reason: LINE FLUSH Sodium Chloride (Nacl 0.9%) 50 ml IV Q24HR@2100 [facility] Stop: 02/20/20 21:01 Objective - Exam Narrative Exam: Limited exam done today due to PPE conservation strategy Vital Signs - 12hr 02/17/20 02/17/20 02/17/20 05:49 09:56 11:52 Temperature 98.7 F 98.5 F Pulse Rate 102 H 109 H Pulse Rate [ 102 H Bilateral Throughout] Respiratory 20 18 Rate Respiratory 32 H Rate [Bilateral Throughout] Blood Pressure 96/56 149/85 O2 Sat by Pulse 98 100 Oximetry 02/17/20 02/17/20 16:06 16:20 Temperature Pulse Rate Pulse Rate [ 76 Bilateral Throughout] Respiratory Rate Respiratory 20 Rate [Bilateral Throughout] Blood Pressure O2 Sat by Pulse 96 Oximetry CBC and BMP: 02/16/20 16:01 02/17/20 08:26 ABG, PT/INR, D-dimer: PT/INR, D-dimer PT 12.9 Sec. (12.2-14.9) 02/13/20 12:34 INR 0.96 (0.87-1.13) 02/13/20 12:34 D-Dimer 271.95 ng/mlDDU (0-234) H 02/16/20 08:30 Abnormal lab findings: Abnormal Labs 02/13/20 02/13/20 02/13/20 12:34 12:34 12:34 WBC 2.5 L RBC 5.32 H Hgb 15.1 H Hct 44.8 H MCHC RDW 13.1 L [place] % (Auto) 10.5 H Lymph # (Auto) 0.8 L Seg Neuts % (Manual) Lymphocytes % (Manual) Seg Neutrophils # 1.4 L Seg Neutrophils # Man Lymphocytes # (Manual) D-Dimer 329.05 H Sodium 134 L BUN 6 L Creatinine Glucose POC Glucose Ferritin AST ALT Lactate Dehydrogenase 388 H Total Creatine Kinase 227 H Albumin Coronavirus (PCR) 02/13/20 02/14/20 02/14/20 12:34 08:29 08:29 WBC 1.6 L* RBC 5.31 H Hgb 15.2 H Hct 43.8 H MCHC 35 H RDW [place] % (Auto) Lymph # (Auto) Seg Neuts % (Manual) 83.0 H Lymphocytes % (Manual) 13.0 L Seg Neutrophils # Seg Neutrophils # Man 1.3 L Lymphocytes # (Manual) 0.2 L D-Dimer Sodium BUN 6 L Creatinine 0.5 L Glucose 123 H POC Glucose Ferritin 2487.0 H AST 122 H ALT 133 H Lactate Dehydrogenase Total Creatine Kinase Albumin Coronavirus (PCR) 02/14/20 02/16/20 02/16/20 Unknown 08:30 08:30 WBC RBC Hgb Hct MCHC RDW [place] % (Auto) Lymph # (Auto) Seg Neuts % (Manual) Lymphocytes % (Manual) Seg Neutrophils # Seg Neutrophils # Man Lymphocytes # (Manual) D-Dimer 271.95 H Sodium BUN Creatinine Glucose POC Glucose Ferritin 2000.0 H AST ALT Lactate Dehydrogenase Total Creatine Kinase Albumin Coronavirus (PCR) Positive A 02/16/20 02/16/20 02/16/20 08:30 16:01 17:24 WBC 4.3 L RBC Hgb 14.4 H Hct MCHC RDW [place] % (Auto) Lymph # (Auto) Seg Neuts % (Manual) Lymphocytes % (Manual) Seg Neutrophils # Seg Neutrophils # Man Lymphocytes # (Manual) D-Dimer Sodium BUN Creatinine Glucose POC Glucose 126 H Ferritin AST ALT Lactate Dehydrogenase 295 H Total Creatine Kinase Albumin Coronavirus (PCR) 02/17/20 02/17/20 07:57 08:26 WBC RBC Hgb Hct MCHC RDW [place] % (Auto) Lymph # (Auto) Seg Neuts % (Manual) Lymphocytes % (Manual) Seg Neutrophils # Seg Neutrophils # Man Lymphocytes # (Manual) D-Dimer Sodium BUN Creatinine Glucose POC Glucose 69 L Ferritin AST 64 H ALT 128 H Lactate Dehydrogenase Total Creatine Kinase Albumin 3.7 L Coronavirus (PCR) Chest x-ray: report reviewed CT scan - chest: report reviewed
--- NOTE | 2020-02-17 17:32 | Progress Note ---
Assessment and Plan - Patient Problems (1) COVID-19 Current Visit: Yes Status: Acute Plan to address problem: - Presented with positive COVID PCR from OSH - (+) exposure to COVID - ID consulted - On azithromycin and Rocephin on 02/13 however CRP and procalcitonin normal, will wait ID input to DC, DC by ID on 02/15 - COVID 19 PCR (+) in house - Supplemental oxygenation as needed - Pulmanory hygiene - OOB TID and prn - Dexamethasone 6mg PO x10 days started on 02/13-02/22 - Trend COVID markers - Anticoagulation per protocol - 02/14 pulmonology consulted - 02/15 initiated remdesivir by ID - Per ID: Obtain SARS CoV-2 IgG to determine if patient is a candidate for COVID convalescent plasma - SARS-CoV-2 IgG negative, concern for, some plasma obtained on 02/16 (2) Acute respiratory failure with hypoxia Current Visit: Yes Status: Acute Plan to address problem: - Supplemental oxygenation as needed - Pulmonary hygiene (3) Bilateral pneumonia Current Visit: Yes Status: Acute Qualifiers: Pneumonia type: due to unspecified organism Lung location: unspecified part of lung Qualified Code(s): J18.9 - Pneumonia, unspecified organism Plan to address problem: - 2/2 covid 19 - Admit CXR showed no acute abnormality -02/15 CTh showed bibasilar subsegmental atelectasis - 02/14 COVID-19 PCR positive - Pulmonary hygiene - Supplemental oxygenation as needed - Covid therapies initiated (4) Neutropenia Current Visit: Yes Status: Resolved Qualifiers: Neutropenia type: due to infection Qualified Code(s): D70.3 - Neutropenia due to infection Plan to address problem: - likely 2/2 to covid - Neutropenic precautions - Presented with WBC 2.5 now 1.6 on 02/13, WBC 4.3 on 02/15 - Trend CBC (5) Acute gastroenteritis Current Visit: No Status: Acute Plan to address problem: - likely 2/2 to COVID - Suppprotive care - Antiemetic prn (6) Asthma Current Visit: No Status: Chronic Plan to address problem: - H/O asthma - Resume home pulm regimen - Supportive care - Pulmonary hygiene - Supplemental oxygen as needed - Pulmonology consulted (7) Morbid obesity Current Visit: Yes Status: Chronic Plan to address problem: - Wt loss counseling - Consider bariatric surgery outpt (8) Elevated d-dimer Current Visit: Yes Status: Acute Plan to address problem: - Admit ddimer 329, 02/15 271.95 - Anticoagulation per protocol - 02/14 BLE venous dopplar US shows no acute DVT - 02/14 CTA shows no acute pulmonary medicine (9) Transaminitis Current Visit: Yes Status: Acute Plan to address problem: - Presented with AST 122/ ALT 133 - Trend LFTS - likely 2/2 to COVID - 02/15 initiated on remdesivir therapy - 02/16 AST 64, ALT 128 (10) DVT prophylaxis Current Visit: No Status: Acute Plan to address problem: - GI and DVT prophylaxis - SCDS to BLE while in bed History Interval history: 37-year-old female with asthma comes in for increasing shortness of breath for 5 days, coughing, body aches and shortness of breath on 02/12. Patient was apparently tested positive for coronavirus on 02/08/2020. Recommend emergency department included a CXR which showed suboptimal inspiration but no definite acute disease. Upon arrival she was leukopenic, slightly hyponatremic, elevated D-dimer and had transaminitis. She was initiated on azithromycin, ceftriaxone and dexamethasone. Infectious disease was consulted and so was pulmonology given worsening respiratory status. She is on day 2 of remdesivir therapy and her IgG for Covid 19 was negative therefore convalescent plasma was ordered. Patient still remains on supplemental oxygenation at 2 to 3 L nasal cannula. Patient states that she is symptomatically better however she is still coughing and has shortness of breath with exertion. 02/15: Patient was initiated on remdesivir today and and she is on dexamethasone daily. 02/14: Due to her admit D-dimer of 329 with need for supplemental oxygenation a CTA chest was obtained which showed no acute pulmonary embolism but showed low lung volumes with moderate bibasilar subsegmental and dependent atelectasis. Bilateral lower extremity Dopplers showed no acute DVT 02/13: COVID-19 PCR positive Hospitalist Physical - Constitutional Vitals: Temp Pulse Resp BP Pulse Ox 98.5 F 76 20 149/85 96 02/17/20 11:52 02/17/20 16:06 02/17/20 16:06 02/17/20 11:52 02/17/20 16:20 General appearance: Present: no acute distress, well-nourished - EENT Eyes: Present: PERRL, EOM intact ENT: hearing intact, clear oral mucosa, dentition normal - Neck Neck: Present: normal ROM - Respiratory Respiratory effort: normal Respiratory: bilateral: diminished - Cardiovascular Rhythm: regular Heart Sounds: Present: S1 & S2. Absent: systolic murmur, diastolic murmur - Extremities Extremities: no ischemia, pulses intact, pulses symmetrical, No edema, normal temperature, normal color, Full ROM Peripheral Pulses: within normal limits - Abdominal General gastrointestinal: soft, non-tender, non-distended, normal bowel sounds - Integumentary Integumentary: Present: clear, warm, dry - Psychiatric Psychiatric: cooperative - Neurologic Neurologic: CNII-XII intact, no focal deficits, moves all extremities HEART Score - HEART Score Troponin: Troponin T < 0.010 ng/mL (0.00-0.029) 02/13/20 12:34 Results - Labs CBC & Chem 7: 02/16/20 16:01 02/17/20 08:26 Labs: Laboratory Last Values WBC 4.3 K/mm3 (4.5-11.0) L 02/16/20 16:01 RBC 5.02 M/mm3 (3.65-5.03) 02/16/20 16:01 Hgb 14.4 gm/dl (10.1-14.3) H 02/16/20 16:01 Hct 42.0 % (30.3-42.9) 02/16/20 16:01 MCV 84 fl (79-97) 02/16/20 16:01 MCH 29 pg (28-32) 02/16/20 16:01 MCHC 34 % (30-34) 02/16/20 16:01 RDW 13.3 % (13.2-15.2) 02/16/20 16:01 Plt Count 173 K/mm3 (140-440) 02/16/20 16:01 Lymph % (Auto) 32.3 % (13.4-35.0) 02/13/20 12:34 [place] % (Auto) 10.5 % (0.0-7.3) H 02/13/20 12:34 Eos % (Auto) 0.1 % (0.0-4.3) 02/13/20 12:34 Baso % (Auto) 0.3 % (0.0-1.8) 02/13/20 12:34 Lymph # (Auto) 0.8 K/mm3 (1.2-5.4) L 02/13/20 12:34 [place] # (Auto) 0.3 K/mm3 (0.0-0.8) 02/13/20 12:34 Eos # (Auto) 0.0 K/mm3 (0.0-0.4) 02/13/20 12:34 Baso # (Auto) 0.0 K/mm3 (0.0-0.1) 02/13/20 12:34 Add Manual Diff Complete 02/14/20 08:29 Total Counted 100 02/14/20 08:29 Seg Neutrophils % 56.8 % (40.0-70.0) 02/13/20 12:34 Seg Neuts % (Manual) 83.0 % (40.0-70.0) H 02/14/20 08:29 Band Neutrophils % 3.0 % 02/14/20 08:29 Lymphocytes % (Manual) 13.0 % (13.4-35.0) L 02/14/20 08:29 Reactive Lymphs % (Man) 0 % 02/14/20 08:29 Monocytes % (Manual) 1.0 % (0.0-7.3) 02/14/20 08:29 Eosinophils % (Manual) 0 % (0.0-4.3) 02/14/20 08:29 Basophils % (Manual) 0 % (0.0-1.8) 02/14/20 08:29 Metamyelocytes % 0 % 02/14/20 08:29 Myelocytes % 0 % 02/14/20 08:29 Promyelocytes % 0 % 02/14/20 08:29 Blast Cells % 0 % 02/14/20 08:29 Nucleated RBC % Not Reportable 02/14/20 08:29 Seg Neutrophils # 1.4 K/mm3 (1.8-7.7) L 02/13/20 12:34 Seg Neutrophils # Man 1.3 K/mm3 (1.8-7.7) L 02/14/20 08:29 Band Neutrophils # 0.0 K/mm3 02/14/20 08:29 Lymphocytes # (Manual) 0.2 K/mm3 (1.2-5.4) L 02/14/20 08:29 Abs React Lymphs (Man) 0.0 K/mm3 02/14/20 08:29 Monocytes # (Manual) 0.0 K/mm3 (0.0-0.8) 02/14/20 08:29 Eosinophils # (Manual) 0.0 K/mm3 (0.0-0.4) 02/14/20 08:29 Basophils # (Manual) 0.0 K/mm3 (0.0-0.1) 02/14/20 08:29 Metamyelocytes # 0.0 K/mm3 02/14/20 08:29 Myelocytes # 0.0 K/mm3 02/14/20 08:29 Promyelocytes # 0.0 K/mm3 02/14/20 08:29 Blast Cells # 0.0 K/mm3 02/14/20 08:29 WBC Morphology Not Reportable 02/14/20 08:29 Hypersegmented Neuts Not Reportable 02/14/20 08:29 Hyposegmented Neuts Not Reportable 02/14/20 08:29 Hypogranular Neuts Not Reportable 02/14/20 08:29 Smudge Cells Not Reportable 02/14/20 08:29 Toxic Granulation Not Reportable 02/14/20 08:29 Toxic Vacuolation Not Reportable 02/14/20 08:29 Dohle Bodies Not Reportable 02/14/20 08:29 Pelger-Huet Anomaly Not Reportable 02/14/20 08:29 Jassi Rods Not Reportable 02/14/20 08:29 Platelet Estimate Consistent w auto 02/14/20 08:29 Clumped Platelets Not Reportable 02/14/20 08:29 Plt Clumps, EDTA Not Reportable 02/14/20 08:29 Large Platelets Not Reportable 02/14/20 08:29 Giant Platelets Not Reportable 02/14/20 08:29 Platelet Satelliting Not Reportable 02/14/20 08:29 Plt Morphology Comment Not Reportable 02/14/20 08:29 RBC Morphology Normal 02/14/20 08:29 Dimorphic RBCs Not Reportable 02/14/20 08:29 Polychromasia Not Reportable 02/14/20 08:29 Hypochromasia Not Reportable 02/14/20 08:29 Poikilocytosis Not Reportable 02/14/20 08:29 Anisocytosis Not Reportable 02/14/20 08:29 Microcytosis Not Reportable 02/14/20 08:29 Macrocytosis Not Reportable 02/14/20 08:29 Spherocytes Not Reportable 02/14/20 08:29 Pappenheimer Bodies Not Reportable 02/14/20 08:29 Sickle Cells Not Reportable 02/14/20 08:29 Target Cells Not Reportable 02/14/20 08:29 Tear Drop Cells Not Reportable 02/14/20 08:29 Ovalocytes Not Reportable 02/14/20 08:29 Helmet Cells Not Reportable 02/14/20 08:29 [place] Bodies Not Reportable 02/14/20 08:29 [place] Rings Not Reportable 02/14/20 08:29 Petr Cells Not Reportable 02/14/20 08:29 Bite Cells Not Reportable 02/14/20 08:29 Crenated Cell Not Reportable 02/14/20 08:29 Elliptocytes Not Reportable 02/14/20 08:29 Acanthocytes (Spur) Not Reportable 02/14/20 08:29 Rouleaux Not Reportable 02/14/20 08:29 Hemoglobin C Crystals Not Reportable 02/14/20 08:29 Schistocytes Not Reportable 02/14/20 08:29 Malaria parasites Not Reportable 02/14/20 08:29 [place] Bodies Not Reportable 02/14/20 08:29 Hem Pathologist Commnt No 02/14/20 08:29 PT 12.9 Sec. (12.2-14.9) 02/13/20 12:34 INR 0.96 (0.87-1.13) 02/13/20 12:34 APTT 32.6 Sec. (24.2-36.6) 02/13/20 12:34 D-Dimer 271.95 ng/mlDDU (0-234) H 02/16/20 08:30 Sodium 139 mmol/L (137-145) 02/17/20 08:26 Potassium 4.1 mmol/L (3.6-5.0) 02/17/20 08:26 Chloride 103.8 mmol/L (98-107) 02/17/20 08:26 Carbon Dioxide 24 mmol/L (22-30) 02/17/20 08:26 Anion Gap 15 mmol/L 02/17/20 08:26 BUN 9 mg/dL (7-17) 02/17/20 08:26 Creatinine 0.6 mg/dL (0.6-1.2) 02/17/20 08:26 Estimated GFR > 60 ml/min 02/17/20 08:26 BUN/Creatinine Ratio 15 % 02/17/20 08:26 Glucose 71 mg/dL (65-100) 02/17/20 08:26 POC Glucose 189 mg/dL (70-105) H 02/17/20 17:32 Lactic Acid 1.00 mmol/L (0.7-2.0) 02/13/20 12:34 Calcium 8.9 mg/dL (8.4-10.2) 02/17/20 08: Magnesium 1.80 mg/dL (1.7-2.3) 02/13/20 12:34 Ferritin 2000.0 ng/mL (10.0-200.0) H 02/16/20 08:30 Total Bilirubin 0.50 mg/dL (0.1-1.2) 02/17/20 08:26 AST 64 units/L (5-40) H 02/17/20 08:26 ALT 128 units/L (7-56) H 02/17/20 08:26 Alkaline Phosphatase 88 units/L (35-129) 02/17/20 08:26 Lactate Dehydrogenase 295 units/L (91-180) H 02/16/20 08:30 Total Creatine Kinase 227 units/L (30-135) H 02/13/20 12:34 CK-MB (CK-2) < 1.0 ng/mL (0.0-4.0) 02/13/20 12:34 CK-MB (CK-2) Rel Index 0.4 (0-4) 02/13/20 12:34 Troponin T < 0.010 ng/mL (0.00-0.029) 02/13/20 12:34 C-Reactive Protein 0.40 mg/dL (0.00-1.30) 02/13/20 12:34 NT-Pro-B Natriuret Pep 7.77 pg/mL (0-450) 02/13/20 12:34 Total Protein 6.7 g/dL (6.3-8.2) 02/17/20 08:26 Albumin 3.7 g/dL (3.9-5) L 02/17/20 08:26 Albumin/Globulin Ratio 1.2 % 02/17/20 08:26 Procalcitonin < 0.05 ng/mL (<0.15) 02/13/20 12:34 Urine Color Yellow (Yellow) 02/13/20 15:00 Urine Turbidity Slightly-cloudy (Clear) 02/13/20 15:00 Urine pH 7.0 (5.0-7.0) 02/13/20 15:00 Ur Specific [place] 1.006 (1.003-1.030) 02/13/20 15:00 Urine Protein <15 mg/dl mg/dL (Negative) 02/13/20 15:00 Urine Glucose (UA) Neg mg/dL (Negative) 02/13/20 15:00 Urine Ketones Tr mg/dL (Negative) 02/13/20 15:00 Urine Blood Neg (Negative) 02/13/20 15:00 Urine Nitrite Neg (Negative) 02/13/20 15:00 Urine Bilirubin Neg (Negative) 02/13/20 15:00 Urine Urobilinogen < 2.0 mg/dL (<2.0) 02/13/20 15:00 Ur Leukocyte Esterase Neg (Negative) 02/13/20 15:00 Urine WBC (Auto) 1.0 /HPF (0.0-6.0) 02/13/20 15:00 Urine RBC (Auto) 1.0 /HPF (0.0-6.0) 02/13/20 15:00 U Epithel Cells (Auto) 8.0 /HPF (0-13.0) 02/13/20 15:00 Urine HCG, Qual Negative (Negative) 02/13/20 15:00 Urine Opiates Screen Negative 02/13/20 15:00 Urine Methadone Screen Negative 02/13/20 15:00 Ur Barbiturates Screen Negative 02/13/20 15:00 Ur Phencyclidine Scrn Negative 02/13/20 15:00 Ur Amphetamines Screen Negative 02/13/20 15:00 U Benzodiazepines Scrn Negative 02/13/20 15:00 Urine Cocaine Screen Negative 02/13/20 15:00 U Marijuana (THC) Screen Negative 02/13/20 15:00 Drugs of Abuse Note Disclamer 02/13/20 15:00 Coronavirus (PCR) Positive (Negative) A 02/14/20 Unknown SARS-CoV-2 IgG Ab Nonreactive (NonReactive) 02/16/20 16:01 Microbiology: Microbiology 02/13/20 12:34 Peripheral/Venous Blood Culture - Preliminary NO GROWTH AFTER 4 DAYS 02/13/20 12:34 Peripheral/Venous Blood Culture - Preliminary NO GROWTH AFTER 4 DAYS [place]/IV: Voiding Method Toilet IV Catheter Type [Right Hand] Peripheral IV Active Medications - Current Medications Current Medications: Generic Name Dose Route Start Last Admin Trade Name Freq PRN Reason Stop Dose Admin Acetaminophen 650 mg 02/14/20 00:29 02/16/20 14:42 Tylenol PO 650 mg Q4H PRN Administration Pain MILD(1-3)/Fever >100.5/MARTIN Albuterol 2 puff 02/14/20 21:27 Proair IH Q4HRT PRN Shortness Of Breath Albuterol/Ipratropium 1 ampul 02/16/20 20:00 02/17/20 16:06 Duoneb *Not For Prn Use* IH 1 ampul TIDRT KWASI Administration Arformoterol Tartrate 15 mcg 02/16/20 10:45 02/17/20 09:58 Brovana Nebu IH 15 mcg Q12HRT KWASI Administration Budesonide 0.25 mg 02/16/20 10:45 02/17/20 09:59 Pulmicort IH 0.25 mg Q12HRT KWASI Administration Dexamethasone 6 mg 02/14/20 10:00 02/17/20 10:15 Decadron PO 02/23/20 10:01 6 mg DAILY KWASI Administration Enoxaparin Sodium 40 mg 02/14/20 22:00 02/16/20 21:31 Enoxaparin SUB-Q 40 mg QDAY@2200 KWASI Administration Protocol Famotidine 20 mg 02/14/20 10:00 02/17/20 10:15 Pepcid PO 20 mg BID KWASI Administration Guaifenesin 10 ml 02/14/20 02:20 02/17/20 05:55 Guaifenesin Dm Syrup PO 10 ml Q4H PRN Administration Cough Hydromorphone HCl 0.5 mg 02/14/20 00:29 Dilaudid IV Q3H PRN Pain , Severe (7-10) REMDESIVIR 100 mg/ Sodium 250 mls @ 500 mls/hr 02/17/20 21:00 Chloride IV 02/20/20 21:29 Q24HR@2100 [facility] Metoclopramide HCl 10 mg 02/14/20 00:29 Reglan IV Q6H PRN Nausea And Vomiting Ondansetron HCl 4 mg 02/14/20 00:29 Zofran IV Q3H PRN Nausea And Vomiting Oxycodone/Acetaminophen 1 tab 02/14/20 00:29 Percocet 5/325 PO Q6H PRN Pain, Moderate (4-6) Promethazine HCl 25 mg 02/14/20 00:27 02/14/20 21:18 Phenergan PO 25 mg Q6HR PRN Administration Nausea Sodium Chloride 10 ml 02/14/20 10:00 02/17/20 10:16 Sodium Chloride Flush Syringe 10 Ml IV 10 ml BID KWASI Administration Sodium Chloride 10 ml 02/14/20 00:29 Sodium Chloride Flush Syringe 10 Ml IV PRN PRN LINE FLUSH Sodium Chloride 50 ml 02/17/20 21:00 Nacl 0.9% IV 02/20/20 21:01 Q24HR@2100 [facility] Nutrition/Malnutrition Assess - Dietary Evaluation Nutrition/Malnutrition Findings: Nutrition Notes Start: 02/14/20 11:48 Freq: Status: Active Protocol: Document 02/16/20 13:20 EVETTE (Rec: 02/16/20 13:26 EVETTE [id number]) Co-Sign 02/16/20 13:20 LM Nutrition Notes Initial or Follow up Reassessment Other Pertinent Diagnosis COVID-19 (+), ARF, asthma, acute gastroenteritis Current Diet Regular Labs/Tests Reviewed Pertinent Medications Reviewed Height 5 ft 2 in Weight 93 kg [place] Body Weight (kg) 50.00 BMI 37.5 Intake Prior to Admission Poor Weight change and time frame 4-8% wt loss. Time frame unknown Weight Status Obese Subjective/Other Information F/u intakes. Pt did not answer phone. Per RN, pt ate 50% of breakfast. Percent of energy/protein needs met: 95%/76% Burn Absent Trauma Absent GI Symptoms None Current % PO Poor (25-49%) Minimum of two criteria Yes Energy Intake (severe) < or equal to 50% Estimated Energy Requirement > or equal to 5 days Interpretation of Weight Loss (severe) >2% in 1 week #2 Nutrition Diagnosis Inadequate oral intake Etiology gastroenteritis and infection As Evidenced by Signs and Symptoms pt had N/V/D upon admission and intakes of 0-50% during adm. #1 Nutrition Diagnosis Malnutrition Diagnosis Progress(for reassessment Continues documentation) Is patient on ventilator? No Is Patient Ambulatory and/or Out of Bed Yes REE-([facility]-ambulatory/OOB) [ 2084.225 [id number]] Kcal/Kg value to use for calculation 17 Approximate Energy Requirements Using 1581 kcal/Kg Calculation Used for Recommendations Kcal/kg Additional Notes Protein: 85-107g (1.2-1.5g/kg using AdjBW 71kg) Fluid: 1ml/kcal Nutrition Intervention Change Diet Order: Continue Add Supplement/Snack (indicate name/kcal Ensure Enlive daily /protein ) Provides kCal: 350 Provides Protein (gm) 20 Goal #1 Meet at least 75% of energy and protein needs Anticipated Discharge Needs: Regular diet Follow-Up By: 02/22/20 Additional Comments F/u stable intakes
[2020-02-17] MEDS: ACETAMINOPHEN 325 MG TAB PO PRN (21:25)
[2020-02-17] MEDS: SODIUM CHLORIDE 0.9% 50 ML IVPB IV SCH (21:27)
[2020-02-17] MEDS: REMDESIVIR 100 MG in SODIUM CHLORIDE 0.9% 250ML 250 ML IV SCH (21:27)
[2020-02-17] MEDS: ENOXAPARIN 40 MG/0.4 ML INJ SUB-Q SCH (21:46)
[2020-02-18 06:38] LABS: Alanine Aminotransferase 98 units/L (7-56); Albumin 3.4 g/dL (3.9-5)
[2020-02-18 06:39] LABS: Bilirubin,Direct < 0.2 mg/dL (0-0.2)
[2020-02-18] MEDS: IPRATROPIUM/ALBUTEROL SULFATE 3 ML AMPUL.NEB IH SCH ×3 (08:37→22:10)
[2020-02-18] MEDS: ARFORMOTEROL 15 MCG/2 ML NEBU IH SCH ×2 (08:37→22:09)
[2020-02-18] MEDS: BUDESONIDE 0.25 MG/2 ML NEBU IH SCH ×2 (08:38→22:10)
[2020-02-18] MEDS: DEXAMETHASONE 4 MG TAB PO SCH (09:47)
[2020-02-18] MEDS: FAMOTIDINE 20 MG TAB PO SCH ×2 (09:48→21:31)
--- NOTE | 2020-02-18 09:57 | Progress Note ---
Assessment and Plan - Patient Problems (1) Asthma Current Visit: Yes Status: Acute (2) Acute respiratory failure with hypoxia Current Visit: Yes Status: Acute (3) Bilateral pneumonia Current Visit: Yes Status: Acute Qualifiers: Pneumonia type: due to unspecified organism Lung location: unspecified part of lung Qualified Code(s): J18.9 - Pneumonia, unspecified organism (4) COVID-19 Current Visit: Yes Status: Acute (5) Hypoxia Current Visit: Yes Status: Acute (6) Neutropenia Current Visit: Yes Status: Resolved Qualifiers: Neutropenia type: due to infection Qualified Code(s): D70.3 - Neutropenia due to infection (7) Morbid obesity Current Visit: Yes Status: Chronic Subjective Principal diagnosis: Acute resp failure with hypoxia,Covid positive Interval history: off o2 sitting up in bed feels better Objective Vital Signs - 12hr 02/17/20 02/18/20 02/18/20 22:00 04:15 08:38 Temperature 98.2 F Pulse Rate 94 H Pulse Rate [ 94 H Bilateral Throughout] Respiratory 18 Rate Respiratory 20 Rate [Bilateral Throughout] Blood Pressure 108/61 O2 Sat by Pulse 97 100 98 Oximetry Constitutional: no acute distress, alert Eyes: non-icteric ENT: oropharynx moist Neck: supple Ascultation: Bilateral: clear Cardiovascular: regular rate and rhythm Gastrointestinal: normoactive bowel sounds, soft, non-tender, non-distended, other (obese) Integumentary: normal Extremities: no cyanosis Neurologic: normal mental status, non-focal exam Psychiatric: mood appropriate, affect normal CBC and BMP: 02/16/20 16:01 02/17/20 08:26 ABG, PT/INR, D-dimer: PT/INR, D-dimer PT 12.9 Sec. (12.2-14.9) 02/13/20 12:34 INR 0.96 (0.87-1.13) 02/13/20 12:34 D-Dimer 271.95 ng/mlDDU (0-234) H 02/16/20 08:30 Abnormal lab findings: Abnormal Labs 02/13/20 02/13/20 02/13/20 12:34 12:34 12:34 WBC 2.5 L RBC 5.32 H Hgb 15.1 H Hct 44.8 H MCHC RDW 13.1 L [place] % (Auto) 10.5 H Lymph # (Auto) 0.8 L Seg Neuts % (Manual) Lymphocytes % (Manual) Seg Neutrophils # 1.4 L Seg Neutrophils # Man Lymphocytes # (Manual) D-Dimer 329.05 H Sodium 134 L BUN 6 L Creatinine Glucose POC Glucose Ferritin AST ALT Lactate Dehydrogenase 388 H Total Creatine Kinase 227 H Albumin Coronavirus (PCR) 02/13/20 02/14/20 02/14/20 12:34 08:29 08:29 WBC 1.6 L* RBC 5.31 H Hgb 15.2 H Hct 43.8 H MCHC 35 H RDW [place] % (Auto) Lymph # (Auto) Seg Neuts % (Manual) 83.0 H Lymphocytes % (Manual) 13.0 L Seg Neutrophils # Seg Neutrophils # Man 1.3 L Lymphocytes # (Manual) 0.2 L D-Dimer Sodium BUN 6 L Creatinine 0.5 L Glucose 123 H POC Glucose Ferritin 2487.0 H AST 122 H ALT 133 H Lactate Dehydrogenase Total Creatine Kinase Albumin Coronavirus (PCR) 02/14/20 02/16/20 02/16/20 Unknown 08:30 08:30 WBC RBC Hgb Hct MCHC RDW [place] % (Auto) Lymph # (Auto) Seg Neuts % (Manual) Lymphocytes % (Manual) Seg Neutrophils # Seg Neutrophils # Man Lymphocytes # (Manual) D-Dimer 271.95 H Sodium BUN Creatinine Glucose POC Glucose Ferritin 2000.0 H AST ALT Lactate Dehydrogenase Total Creatine Kinase Albumin Coronavirus (PCR) Positive A 02/16/20 02/16/20 02/16/20 08:30 16:01 17:24 WBC 4.3 L RBC Hgb 14.4 H Hct MCHC RDW [place] % (Auto) Lymph # (Auto) Seg Neuts % (Manual) Lymphocytes % (Manual) Seg Neutrophils # Seg Neutrophils # Man Lymphocytes # (Manual) D-Dimer Sodium BUN Creatinine Glucose POC Glucose 126 H Ferritin AST ALT Lactate Dehydrogenase 295 H Total Creatine Kinase Albumin Coronavirus (PCR) 02/17/20 02/17/20 02/17/20 07:57 08:26 17:32 WBC RBC Hgb Hct MCHC RDW [place] % (Auto) Lymph # (Auto) Seg Neuts % (Manual) Lymphocytes % (Manual) Seg Neutrophils # Seg Neutrophils # Man Lymphocytes # (Manual) D-Dimer Sodium BUN Creatinine Glucose POC Glucose 69 L 189 H Ferritin AST 64 H ALT 128 H Lactate Dehydrogenase Total Creatine Kinase Albumin 3.7 L Coronavirus (PCR) 02/17/20 02/18/20 02/18/20 21:57 05:44 05:44 WBC RBC Hgb Hct MCHC RDW [place] % (Auto) Lymph # (Auto) Seg Neuts % (Manual) Lymphocytes % (Manual) Seg Neutrophils # Seg Neutrophils # Man Lymphocytes # (Manual) D-Dimer Sodium BUN Creatinine Glucose POC Glucose 110 H Ferritin 1665.0 H AST ALT 98 H Lactate Dehydrogenase 237 H Total Creatine Kinase Albumin 3.4 L Coronavirus (PCR)
--- NOTE | 2020-02-18 10:38 | Progress Note ---
Assessment and Plan Cultures: Blood culture no growth today SARS CoV2 PCR positive SARS CoV2 IgG negative Assessment: 29 years old female with history of asthma, admitted on 02/13/2020 due to 4-day history of generalized malaise, cough, loss of taste and smell and progressive shortness of breath, she tested positive for COVID-19 on 02/08/2020: #Neutropenia: due to COVID, improving #Severe COVID pneumonia: Inflammatory markers elevated, improving #Acute hypoxemic respiratory failure: Initial Sats dropped to 51%, now on 2 L nasal cannula. #Elevated LFTs: from COVID, improving Recommendations: -SARS CoV-2 IgG is negative, patient may benefit from COVID convalescent plasma -Continue dexamethasone 6 mg IV/PO daily for 10 days -Continue Remdesivir - day 3 of 5 -Monitor inflammatory markers - ferritin, Ddimer, CRP, LDH -Monitor liver function test on Remdesivir -Continue anticoagulation per System Protocol -Prone positioning as possible -Pulmonary on board Dr Tulio cohen this weekend Will follow Roma Winters MD Infectious Diseases Supervisor Type [employer] [facility] M [phone] O [phone] Subjective Date of service: 02/18/20 Principal diagnosis: Acute resp failure with hypoxia,Covid positive Interval history: Remains on 2L [place] no fever, no desaturations Objective - Exam Narrative Exam: Physical Exam: reviewed ED and hospitalist notes, limited due to conservation of PPE and decrease risk of transmission. General appearance: limited due to conservation of PPE Eyes: limited due to conservation of PPE HENT: Atraumatic; limited due to conservation of PPE Lungs: limited due to conservation of PPE CV: limited due to conservation of PPE Abdomen: limited due to conservation of PPE Extremities: limited due to conservation of PPE Skin: limited due to conservation of PPE Psych: limited due to conservation of PPE Neuro: limited due to conservation of PPE - Constitutional Vitals: Vital Signs Temp Pulse Resp BP Pulse Ox 98.2 F 94 H 20 108/61 98 02/18/20 04:15 02/18/20 08:38 02/18/20 08:38 02/18/20 04:15 02/18/20 08:38 Temperature -Last 24 Hours Temperature 98.2 F Temperature 98.6 F Temperature 98.1 F Temperature 98.5 F - Labs CBC & Chem 7: 02/16/20 16:01 02/17/20 08:26 Labs: Abnormal lab results 02/17/20 02/17/20 02/18/20 Range/Units 17:32 21:57 05:44 POC Glucose 189 H 110 H (70-105) mg/dL Ferritin 1665.0 H (10.0-200.0) ng/mL ALT (7-56) units/L Lactate Dehydrogenase (91-180) units/L Albumin (3.9-5) g/dL 02/18/20 Range/Units 05:44 POC Glucose (70-105) mg/dL Ferritin (10.0-200.0) ng/mL ALT 98 H (7-56) units/L Lactate Dehydrogenase 237 H (91-180) units/L Albumin 3.4 L (3.9-5) g/dL
--- NOTE | 2020-02-18 16:35 | Progress Note ---
Assessment and Plan - Patient Problems (1) COVID-19 Current Visit: Yes Status: Acute Plan to address problem: - Presented with positive COVID PCR from OSH - (+) exposure to COVID - ID consulted - On azithromycin and Rocephin on 02/13 however CRP and procalcitonin normal, will wait ID input to DC, DC by ID on 02/15 - COVID 19 PCR (+) in house - Supplemental oxygenation as needed - Pulmanory hygiene - OOB TID and prn - Dexamethasone 6mg PO x10 days started on 02/13-02/22 - Trend COVID markers - Anticoagulation per protocol - 02/14 pulmonology consulted - 02/15 initiated remdesivir by ID - Per ID: Obtain SARS CoV-2 IgG to determine if patient is a candidate for COVID convalescent plasma - SARS-CoV-2 IgG negative, consent for convalescent plasma obtained on 02/16, which is still pending at this time (2) Acute respiratory failure with hypoxia Current Visit: Yes Status: Acute Plan to address problem: - Supplemental oxygenation as needed - Pulmonary hygiene (3) Bilateral pneumonia Current Visit: Yes Status: Acute Qualifiers: Pneumonia type: due to unspecified organism Lung location: unspecified part of lung Qualified Code(s): J18.9 - Pneumonia, unspecified organism Plan to address problem: - 2/2 covid 19 - Admit CXR showed no acute abnormality -02/15 CTh showed bibasilar subsegmental atelectasis - 02/14 COVID-19 PCR positive - Pulmonary hygiene - Supplemental oxygenation as needed - Covid therapies initiated (4) Neutropenia Current Visit: Yes Status: Resolved Qualifiers: Neutropenia type: due to infection Qualified Code(s): D70.3 - Neutropenia due to infection Plan to address problem: - likely 2/2 to covid - Neutropenic precautions - Presented with WBC 2.5 now 1.6 on 02/13, WBC 4.3 on 02/15 - Trend CBC (5) Acute gastroenteritis Current Visit: No Status: Acute Plan to address problem: - likely 2/2 to COVID - Suppprotive care - Antiemetic prn (6) Asthma Current Visit: No Status: Chronic Plan to address problem: - H/O asthma - Resume home pulm regimen - Supportive care - Pulmonary hygiene - Supplemental oxygen as needed - Pulmonology consulted (7) Morbid obesity Current Visit: Yes Status: Chronic Plan to address problem: - Wt loss counseling - Consider bariatric surgery outpt (8) Elevated d-dimer Current Visit: Yes Status: Acute Plan to address problem: - Admit ddimer 329, 02/15 271.95 - Anticoagulation per protocol - 02/14 BLE venous dopplar US shows no acute DVT - 02/14 CTA shows no acute pulmonary medicine (9) Transaminitis Current Visit: Yes Status: Acute Plan to address problem: - Presented with AST 122/ ALT 133 - Trend LFTS - likely 2/2 to COVID - 02/15 initiated on remdesivir therapy - 02/16 AST 64, ALT 128 - 02/17 98/24 (10) DVT prophylaxis Current Visit: No Status: Acute Plan to address problem: - GI and DVT prophylaxis - SCDS to BLE while in bed History Interval history: 37-year-old female with asthma comes in for increasing shortness of breath for 5 days, coughing, body aches and shortness of breath on 02/12. Patient was apparently tested positive for coronavirus on 02/08/2020. Recommend emergency department included a CXR which showed suboptimal inspiration but no definite acute disease. Upon arrival she was leukopenic, slightly hyponatremic, elevated D-dimer and had transaminitis. She was initiated on azithromycin, ceftriaxone and dexamethasone. Infectious disease was consulted and so was pulmonology given worsening respiratory status. She is on day 3 of remdesivir therapy and her convalescent plasma is pending. She still remains on supplemental oxygen at 2 to 3 L intermittently. Patient states that she still gets short of breath with any exertion and is intermittently coughing. 02/16: Convalescent plasma ordered, COVID-19 antibody negative, day 2 of remdesivir therapy 02/15: Patient was initiated on remdesivir today and and she is on dexamethasone daily. 02/14: Due to her admit D-dimer of 329 with need for supplemental oxygenation a CTA chest was obtained which showed no acute pulmonary embolism but showed low lung volumes with moderate bibasilar subsegmental and dependent atelectasis. Bilateral lower extremity Dopplers showed no acute DVT 02/13: COVID-19 PCR positive Hospitalist Physical - Physical exam Narrative exam: Physical exam not conducted in an attempt to limit exposure and conserve PPE - Constitutional Vitals: Temp Pulse Resp BP Pulse Ox 98.2 F 94 H 20 108/61 98 02/18/20 04:15 02/18/20 08:38 02/18/20 08:38 02/18/20 04:15 02/18/20 08:38 General appearance: Present: no acute distress, well-nourished - EENT Eyes: Present: PERRL HEART Score - HEART Score Troponin: Troponin T < 0.010 ng/mL (0.00-0.029) 02/13/20 12:34 Results - Labs CBC & Chem 7: 02/16/20 16:01 02/17/20 08:26 Labs: Laboratory Last Values WBC 4.3 K/mm3 (4.5-11.0) L 02/16/20 16:01 RBC 5.02 M/mm3 (3.65-5.03) 02/16/20 16:01 Hgb 14.4 gm/dl (10.1-14.3) H 02/16/20 16:01 Hct 42.0 % (30.3-42.9) 02/16/20 16:01 MCV 84 fl (79-97) 02/16/20 16:01 MCH 29 pg (28-32) 02/16/20 16:01 MCHC 34 % (30-34) 02/16/20 16:01 RDW 13.3 % (13.2-15.2) 02/16/20 16:01 Plt Count 173 K/mm3 (140-440) 02/16/20 16:01 Lymph % (Auto) 32.3 % (13.4-35.0) 02/13/20 12:34 Petroleum % (Auto) 10.5 % (0.0-7.3) H 02/13/20 12:34 Eos % (Auto) 0.1 % (0.0-4.3) 02/13/20 12:34 Baso % (Auto) 0.3 % (0.0-1.8) 02/13/20 12:34 Lymph # (Auto) 0.8 K/mm3 (1.2-5.4) L 02/13/20 12:34 Petroleum # (Auto) 0.3 K/mm3 (0.0-0.8) 02/13/20 12:34 Eos # (Auto) 0.0 K/mm3 (0.0-0.4) 02/13/20 12:34 Baso # (Auto) 0.0 K/mm3 (0.0-0.1) 02/13/20 12:34 Add Manual Diff Complete 02/14/20 08:29 Total Counted 100 02/14/20 08:29 Seg Neutrophils % 56.8 % (40.0-70.0) 02/13/20 12:34 Seg Neuts % (Manual) 83.0 % (40.0-70.0) H 02/14/20 08:29 Band Neutrophils % 3.0 % 02/14/20 08:29 Lymphocytes % (Manual) 13.0 % (13.4-35.0) L 02/14/20 08:29 Reactive Lymphs % (Man) 0 % 02/14/20 08:29 Monocytes % (Manual) 1.0 % (0.0-7.3) 02/14/20 08:29 Eosinophils % (Manual) 0 % (0.0-4.3) 02/14/20 08:29 Basophils % (Manual) 0 % (0.0-1.8) 02/14/20 08:29 Metamyelocytes % 0 % 02/14/20 08:29 Myelocytes % 0 % 02/14/20 08:29 Promyelocytes % 0 % 02/14/20 08:29 Blast Cells % 0 % 02/14/20 08:29 Nucleated RBC % Not Reportable 02/14/20 08:29 Seg Neutrophils # 1.4 K/mm3 (1.8-7.7) L 02/13/20 12:34 Seg Neutrophils # Man 1.3 K/mm3 (1.8-7.7) L 02/14/20 08:29 Band Neutrophils # 0.0 K/mm3 02/14/20 08:29 Lymphocytes # (Manual) 0.2 K/mm3 (1.2-5.4) L 02/14/20 08:29 Abs React Lymphs (Man) 0.0 K/mm3 02/14/20 08:29 Monocytes # (Manual) 0.0 K/mm3 (0.0-0.8) 02/14/20 08:29 Eosinophils # (Manual) 0.0 K/mm3 (0.0-0.4) 02/14/20 08:29 Basophils # (Manual) 0.0 K/mm3 (0.0-0.1) 02/14/20 08:29 Metamyelocytes # 0.0 K/mm3 02/14/20 08:29 Myelocytes # 0.0 K/mm3 02/14/20 08:29 Promyelocytes # 0.0 K/mm3 02/14/20 08:29 Blast Cells # 0.0 K/mm3 02/14/20 08:29 WBC Morphology Not Reportable 02/14/20 08:29 Hypersegmented Neuts Not Reportable 02/14/20 08:29 Hyposegmented Neuts Not Reportable 02/14/20 08:29 Hypogranular Neuts Not Reportable 02/14/20 08:29 Smudge Cells Not Reportable 02/14/20 08:29 Toxic Granulation Not Reportable 02/14/20 08:29 Toxic Vacuolation Not Reportable 02/14/20 08:29 Dohle Bodies Not Reportable 02/14/20 08:29 Pelger-Huet Anomaly Not Reportable 02/14/20 08:29 Jassi Rods Not Reportable 02/14/20 08:29 Platelet Estimate Consistent w auto 02/14/20 08:29 Clumped Platelets Not Reportable 02/14/20 08:29 Plt Clumps, EDTA Not Reportable 02/14/20 08:29 Large Platelets Not Reportable 02/14/20 08:29 Giant Platelets Not Reportable 02/14/20 08:29 Platelet Satelliting Not Reportable 02/14/20 08:29 Plt Morphology Comment Not Reportable 02/14/20 08:29 RBC Morphology Normal 02/14/20 08:29 Dimorphic RBCs Not Reportable 02/14/20 08:29 Polychromasia Not Reportable 02/14/20 08:29 Hypochromasia Not Reportable 02/14/20 08:29 Poikilocytosis Not Reportable 02/14/20 08:29 Anisocytosis Not Reportable 02/14/20 08:29 Microcytosis Not Reportable 02/14/20 08:29 Macrocytosis Not Reportable 02/14/20 08:29 Spherocytes Not Reportable 02/14/20 08:29 Pappenheimer Bodies Not Reportable 02/14/20 08:29 Sickle Cells Not Reportable 02/14/20 08:29 Target Cells Not Reportable 02/14/20 08:29 Tear Drop Cells Not Reportable 02/14/20 08:29 Ovalocytes Not Reportable 02/14/20 08:29 Helmet Cells Not Reportable 02/14/20 08:29 [place] Bodies Not Reportable 02/14/20 08:29 [place] Rings Not Reportable 02/14/20 08:29 [place] Cells Not Reportable 02/14/20 08:29 Bite Cells Not Reportable 02/14/20 08:29 Crenated Cell Not Reportable 02/14/20 08:29 Elliptocytes Not Reportable 02/14/20 08:29 Acanthocytes (Spur) Not Reportable 02/14/20 08:29 Rouleaux Not Reportable 02/14/20 08:29 Hemoglobin C Crystals Not Reportable 02/14/20 08:29 Schistocytes Not Reportable 02/14/20 08:29 Malaria parasites Not Reportable 02/14/20 08:29 [place] Bodies Not Reportable 02/14/20 08:29 Hem Pathologist Commnt No 02/14/20 08:29 PT 12.9 Sec. (12.2-14.9) 02/13/20 12:34 INR 0.96 (0.87-1.13) 02/13/20 12:34 APTT 32.6 Sec. (24.2-36.6) 02/13/20 12:34 D-Dimer 203.44 ng/mlDDU (0-234) 02/18/20 10:45 Sodium 139 mmol/L (137-145) 02/17/20 08:26 Potassium 4.1 mmol/L (3.6-5.0) 02/17/20 08:26 Chloride 103.8 mmol/L (98-107) 02/17/20 08:26 Carbon Dioxide 24 mmol/L (22-30) 02/17/20 08:26 Anion Gap 15 mmol/L 02/17/20 08:26 BUN 9 mg/dL (7-17) 02/17/20 08:26 Creatinine 0.6 mg/dL (0.6-1.2) 02/17/20 08:26 Estimated GFR > 60 ml/min 02/17/20 08:26 BUN/Creatinine Ratio 15 % 02/17/20 08:26 Glucose 71 mg/dL (65-100) 02/17/20 08:26 POC Glucose 75 mg/dL (70-105) 02/18/20 08:06 Lactic Acid 1.00 mmol/L (0.7-2.0) 02/13/20 12:34 Calcium 8.9 mg/dL (8.4-10.2) 02/17/20 08:26 Magnesium 1.80 mg/dL (1.7-2.3) 02/13/20 12:34 Ferritin 1665.0 ng/mL (10.0-200.0) H 02/18/20 05:44 Total Bilirubin 0.30 mg/dL (0.1-1.2) 02/18/20 05:44 Direct Bilirubin < 0.2 mg/dL (0-0.2) 02/18/20 05:44 Indirect Bilirubin 0.1 mg/dL 02/18/20 05:44 AST 37 units/L (5-40) 02/18/20 05:44 ALT 98 units/L (7-56) H 02/18/20 05:44 Alkaline Phosphatase 84 units/L (35-129) 02/18/20 05:44 Lactate Dehydrogenase 237 units/L (91-180) H 02/18/20 05:44 Total Creatine Kinase 227 units/L (30-135) H 02/13/20 12:34 CK-MB (CK-2) < 1.0 ng/mL (0.0-4.0) 02/13/20 12:34 CK-MB (CK-2) Rel Index 0.4 (0-4) 02/13/20 12:34 Troponin T < 0.010 ng/mL (0.00-0.029) 02/13/20 12:34 C-Reactive Protein 0.40 mg/dL (0.00-1.30) 02/13/20 12:34 NT-Pro-B Natriuret Pep 7.77 pg/mL (0-450) 02/13/20 12:34 Total Protein 6.8 g/dL (6.3-8.2) 02/18/20 05:44 Albumin 3.4 g/dL (3.9-5) L 02/18/20 05:44 Albumin/Globulin Ratio 1.0 % 02/18/20 05:44 Procalcitonin < 0.05 ng/mL (<0.15) 02/13/20 12:34 Urine Color Yellow (Yellow) 02/13/20 15:00 Urine Turbidity Slightly-cloudy (Clear) 02/13/20 15:00 Urine pH 7.0 (5.0-7.0) 02/13/20 15:00 Ur Specific [place] 1.006 (1.003-1.030) 02/13/20 15:00 Urine Protein <15 mg/dl mg/dL (Negative) 02/13/20 15:00 Urine Glucose (UA) Neg mg/dL (Negative) 02/13/20 15:00 Urine Ketones Tr mg/dL (Negative) 02/13/20 15:00 Urine Blood Neg (Negative) 02/13/20 15:00 Urine Nitrite Neg (Negative) 02/13/20 15:00 Urine Bilirubin Neg (Negative) 02/13/20 15:00 Urine Urobilinogen < 2.0 mg/dL (<2.0) 02/13/20 15:00 Ur Leukocyte Esterase Neg (Negative) 02/13/20 15:00 Urine WBC (Auto) 1.0 /HPF (0.0-6.0) 02/13/20 15:00 Urine RBC (Auto) 1.0 /HPF (0.0-6.0) 02/13/20 15:00 U Epithel Cells (Auto) 8.0 /HPF (0-13.0) 02/13/20 15:00 Urine HCG, Qual Negative (Negative) 02/13/20 15:00 Urine Opiates Screen Negative 02/13/20 15:00 Urine Methadone Screen Negative 02/13/20 15:00 Ur Barbiturates Screen Negative 02/13/20 15:00 Ur Phencyclidine Scrn Negative 02/13/20 15:00 Ur Amphetamines Screen Negative 02/13/20 15:00 U Benzodiazepines Scrn Negative 02/13/20 15:00 Urine Cocaine Screen Negative 02/13/20 15:00 U Marijuana (THC) Screen Negative 02/13/20 15:00 Drugs of Abuse Note Disclamer 02/13/20 15:00 Coronavirus (PCR) Positive (Negative) A 02/14/20 Unknown SARS-CoV-2 IgG Ab Nonreactive (NonReactive) 02/16/20 16:01 Microbiology: Microbiology 02/13/20 12:34 Peripheral/Venous Blood Culture - Final NO GROWTH AFTER 5 DAYS 02/13/20 12:34 Peripheral/Venous Blood Culture - Final NO GROWTH AFTER 5 DAYS [place]/IV: Voiding Method Toilet IV Catheter Type [Right Hand] Peripheral IV Active Medications - Current Medications Current Medications: Generic Name Dose Route Start Last Admin Trade Name Freq PRN Reason Stop Dose Admin Acetaminophen 650 mg 02/14/20 00:29 02/17/20 21:25 Tylenol PO 650 mg Q4H PRN Administration Pain MILD(1-3)/Fever >100.5/MARTIN Albuterol 2 puff 02/14/20 21:27 Proair IH Q4HRT PRN Shortness Of Breath Albuterol/Ipratropium 1 ampul 02/16/20 20:00 02/18/20 08:37 Duoneb *Not For Prn Use* IH 1 ampul TIDRT KWASI Administration Arformoterol Tartrate 15 mcg 02/16/20 10:45 02/18/20 08:37 Brovana Nebu IH 15 mcg Q12HRT KWASI Administration Budesonide 0.25 mg 02/16/20 10:45 02/18/20 08:38 Pulmicort IH 0.25 mg Q12HRT KWASI Administration Dexamethasone 6 mg 02/14/20 10:00 02/18/20 09:47 Decadron PO 02/23/20 10:01 6 mg DAILY KWASI Administration Enoxaparin Sodium 40 mg 02/14/20 22:00 02/17/20 21:46 Enoxaparin SUB-Q 40 mg QDAY@2200 KWASI Administration Protocol Famotidine 20 mg 02/14/20 10:00 02/18/20 09:48 Pepcid PO 20 mg BID KWASI Administration Guaifenesin 10 ml 02/14/20 02:20 02/17/20 21:24 Guaifenesin Dm Syrup PO 10 ml Q4H PRN Administration Cough Hydromorphone HCl 0.5 mg 02/14/20 00:29 Dilaudid IV Q3H PRN Pain , Severe (7-10) REMDESIVIR 100 mg/ Sodium 250 mls @ 500 mls/hr 02/17/20 21:00 02/18/20 06:47 Chloride IV 02/20/20 21:29 Infused Q24HR@2100 KWASI Infusion Metoclopramide HCl 10 mg 02/14/20 00:29 Reglan IV Q6H PRN Nausea And Vomiting Ondansetron HCl 4 mg 02/14/20 00:29 Zofran IV Q3H PRN Nausea And Vomiting Oxycodone/Acetaminophen 1 tab 02/14/20 00:29 02/18/20 14:31 Percocet 5/325 PO 1 tab Q6H PRN Administration Pain, Moderate (4-6) Promethazine HCl 25 mg 02/14/20 00:27 02/14/20 21:18 Phenergan PO 25 mg Q6HR PRN Administration Nausea Sodium Chloride 10 ml 02/14/20 10:00 02/18/20 06:47 Sodium Chloride Flush Syringe 10 Ml IV Not Given BID KWASI Sodium Chloride 10 ml 02/14/20 00:29 Sodium Chloride Flush Syringe 10 Ml IV PRN PRN LINE FLUSH Sodium Chloride 50 ml 02/17/20 21:00 02/17/20 21:27 Nacl 0.9% IV 02/20/20 21:01 50 ml Q24HR@2100 KWASI Administration Nutrition/Malnutrition Assess - Dietary Evaluation Nutrition/Malnutrition Findings: Nutrition Notes Start: 02/14/20 11:48 Freq: Status: Active Protocol: Document 02/16/20 13:20 EVETTE (Rec: 02/16/20 13:26 EVETTE [id number]) Co-Sign 02/16/20 13:20 LM Nutrition Notes Initial or Follow up Reassessment Other Pertinent Diagnosis COVID-19 (+), ARF, asthma, acute gastroenteritis Current Diet Regular Labs/Tests Reviewed Pertinent Medications Reviewed Height 5 ft 2 in Weight 93 kg [place] Body Weight (kg) 50.00 BMI 37.5 Intake Prior to Admission Poor Weight change and time frame 4-8% wt loss. Time frame unknown Weight Status Obese Subjective/Other Information F/u intakes. Pt did not answer phone. Per RN, pt ate 50% of breakfast. Percent of energy/protein needs met: 95%/76% Burn Absent Trauma Absent GI Symptoms None Current % PO Poor (25-49%) Minimum of two criteria Yes Energy Intake (severe) < or equal to 50% Estimated Energy Requirement > or equal to 5 days Interpretation of Weight Loss (severe) >2% in 1 week #2 Nutrition Diagnosis Inadequate oral intake Etiology gastroenteritis and infection As Evidenced by Signs and Symptoms pt had N/V/D upon admission and intakes of 0-50% during adm. #1 Nutrition Diagnosis Malnutrition Diagnosis Progress(for reassessment Continues documentation) Is patient on ventilator? No Is Patient Ambulatory and/or Out of Bed Yes REE-([facility]-ambulatory/OOB) [ 2083. [id number]] Kcal/Kg value to use for calculation 17 Approximate Energy Requirements Using 1581 kcal/Kg Calculation Used for Recommendations Kcal/kg Additional Notes Protein: 85-107g (1.2-1.5g/kg using AdjBW 71kg) Fluid: 1ml/kcal Nutrition Intervention Change Diet Order: Continue Add Supplement/Snack (indicate name/kcal Ensure Enlive daily /protein ) Provides kCal: 350 Provides Protein (gm) 20 Goal #1 Meet at least 75% of energy and protein needs Anticipated Discharge Needs: Regular diet Follow-Up By: 02/22/20 Additional Comments F/u stable intakes
[2020-02-18] MEDS: SODIUM CHLORIDE 0.9% 50 ML IVPB IV SCH (21:34)
[2020-02-18] MEDS: guaiFENesin DM 200/20 MG ORAL LIQD 10 ML PO PRN (21:49)
[2020-02-18] MEDS: ENOXAPARIN 40 MG/0.4 ML INJ SUB-Q SCH (23:11)
[2020-02-18] MEDS: REMDESIVIR 100 MG in SODIUM CHLORIDE 0.9% 250ML 250 ML IV SCH (23:13)
[2020-02-19 07:54] LABS: Hematocrit 41.9 % (30.3-42.9); Hemoglobin 14.7 gm/dl (10.1-14.3); Mean Corpuscular HGB Conc 35 % (30-34); Mean Corpuscular Volume 83 fl (79-97); Platelet Count 232 K/mm3 (140-440); Red Blood Count 5.07 M/mm3 (3.65-5.03); Red Cell Distribution Width 13.2 % (13.2-15.2)
[2020-02-19 08:03] LABS: Blood Urea Nitrogen 10 mg/dL (7-17); Calcium 8.9 mg/dL (8.4-10.2); Hemolysis Index 10
[2020-02-19 08:04] LABS: BUN/Creatinine Ratio 25
[2020-02-19] MEDS: ARFORMOTEROL 15 MCG/2 ML NEBU IH SCH ×2 (08:57→21:00)
[2020-02-19] MEDS: IPRATROPIUM/ALBUTEROL SULFATE 3 ML AMPUL.NEB IH SCH ×2 (09:20→14:57)
[2020-02-19] MEDS: BUDESONIDE 0.25 MG/2 ML NEBU IH SCH ×2 (09:20→21:00)
[2020-02-19] MEDS: DEXAMETHASONE 4 MG TAB PO SCH (09:51)
[2020-02-19] MEDS: FAMOTIDINE 20 MG TAB PO SCH ×2 (09:52→22:07)
--- NOTE | 2020-02-19 10:24 | Progress Note ---
Assessment and Plan Assessment and Plan - Patient Problems (1) COVID-19 viral Infection Current Visit: Yes Status: Acute Plan to address problem: Continue current medical care ID and flagman following On azithromycin and Rocephin on 02/13 however CRP and procalcitonin normal Pulmanory hygiene and OOB TID and prn Dexamethasone 6mg PO x10 days started on 02/13-02/22 Trend inflammatory makers 02/15 initiated remdesivir by ID SARS-CoV-2 IgG negative-Patient signed consent for convalescent plasma. reviewed ID note -patient will start on consvalescent plasma (2) Acute respiratory failure with hypoxia Current Visit: Yes Status: Acute Plan to address problem: continue Supplemental oxygenation as needed Advised on use of IS (3) Bilateral pneumonia likely 2/2 to covid infection Current Visit: Yes Status: Acute Qualifiers: Pneumonia type: due to unspecified organism Lung location: unspecified part of lung Qualified Code(s): J18.9 - Pneumonia, unspecified organism Plan to address problem: Admit CXR showed no acute abnormality 02/15 CTA showed bibasilar subsegmental atelectasis but negative for PE (4) Neutropenia Current Visit: Yes Status: Resolved Qualifiers: Neutropenia type: due to infection Qualified Code(s): D70.3 - Neutropenia due to infection Plan to address problem: likely 2/2 to covid Neutropenic precautions Presented with WBC 2.5 now 1.6 on 02/13, WBC 4.3 on 02/15 Monitor CBC (5) Acute gastroenteritis Current Visit: No Status: Acute Plan to address problem: likely 2/2 to COVID Suppprotive care Antiemetic prn (6) Asthma Current Visit: No Status: Chronic Plan to address problem: H/O asthma Resume home pulm regimen-bronchodilator Pulmonology following 7) Morbid obesity Current Visit: Yes Status: Chronic Plan to address problem: Discussed lifstyle modification Healthy diet and weight management (8) Elevated d-dimer Current Visit: Yes Status: Acute Plan to address problem: Admit ddimer 329, 02/15 271.95 Anticoagulation per protocol 02/14 CTA negative for PE and bilateral leg US-negative for DVT (9) Transaminitis likely 2/2 to Covid infection-improving Current Visit: Yes Status: Acute Plan to address problem: Presented with AST 122/ ALT 133 Monitor liver enzymes 02/15 initiated on remdesivir therapy 02/16 AST 64, ALT 128 and on 02/17 - (10) DVT prophylaxis Current Visit: No Status: Acute Plan to address problem: GI and DVT prophylaxis SCDS to BLE while in bed Subjective Date of service: 02/19/20 Principal diagnosis: Acute resp failure with hypoxia,Covid positive Interval history: Patient seen at bedside. She is on oxygen at 2 liters N/C. She calm and note in acute distress Reviewed lab, mar, and V/S. 02/16: Convalescent plasma ordered, COVID-19 antibody negative, day 2 of remdesivir therapy 02/15: Patient was initiated on remdesivir today and and she is on dexamet hasone daily. 02/14: Due to her admit D-dimer of 329 with need for supplemental oxygenation a CTA chest was obtained which showed no acute pulmonary embolism but showed low lung volumes with moderate bibasilar subsegmental and dependent atelectasis. Bilateral lower extremity Dopplers showed no acute DVT 02/13: COVID-19 PCR positive 02/19/20-Reviewed ID note-input appreciated Objective - Constitutional Vitals: Vital Signs - 12hr 02/19/20 02/19/20 02/19/20 04:39 09:46 09:47 Temperature 98.3 F Pulse Rate 77 Pulse Rate [ 78 Bilateral Throughout] Respiratory 18 Rate Respiratory 18 Rate [Bilateral Throughout] Blood Pressure 104/62 O2 Sat by Pulse 100 100 Oximetry General appearance: Present: no acute distress, obese - EENT Eyes: PERRL, EOM intact ENT: hearing intact, clear oral mucosa Ears: bilateral: normal - Neck Neck: supple, normal ROM - Respiratory Respiratory effort: normal Respiratory: bilateral: diminished (diminshed breath sound likely due to body size) - Breasts Breasts: normal - Cardiovascular Heart rate: 74 Rhythm: regular Heart Sounds: Present: S1 & S2. Absent: gallop, rub Extremities: pulses intact, No edema, normal color, Full ROM - Gastrointestinal General gastrointestinal: Present: soft, non-tender, non-distended, normal bowel sounds - Genitourinary Female genitourinary: normal - Integumentary Integumentary: clear, warm, dry - Musculoskeletal Musculoskeletal: 1, strength equal bilaterally - Neurologic Neurologic: moves all extremities - Psychiatric Psychiatric: appropriate mood/affect, intact judgment & insight, memory intact, cooperative - Allied health notes Allied health notes reviewed: nursing - Labs CBC & Chem 7: 02/19/20 06:39 02/19/20 06:39 Labs: Abnormal lab results 02/18/20 02/18/20 02/19/20 Range/Units 16:54 21:52 06:39 WBC 4.1 L (4.5-11.0) K/mm3 RBC 5.07 H (3.65-5.03) M/mm3 Hgb 14.7 H (10.1-14.3) gm/dl MCHC 35 H (30-34) % Sodium (137-145) mmol/L Creatinine (0.6-1.2) mg/dL POC Glucose 185 H 168 H (70-105) mg/dL 02/19/20 02/19/20 Range/Units 06:39 08:16 WBC (4.5-11.0) K/mm3 RBC (3.65-5.03) M/mm3 Hgb (10.1-14.3) gm/dl MCHC (30-34) % Sodium 135 L (137-145) mmol/L Creatinine 0.4 L (0.6-1.2) mg/dL POC Glucose 119 H (70-105) mg/dL HEART Score - HEART Score Troponin: Troponin T < 0.010 ng/mL (0.00-0.029) 02/13/20 12:34
[2020-02-19] MEDS ORDERED: SODIUM CHLORIDE 0.9% 250ML 250 ML IV ONE (13:45)
--- NOTE | 2020-02-19 13:51 | Progress Note ---
Assessment and Plan Assessment and Plan Imp: 1. Covid-19 2. Viral pneumonia 3. Acute respiratory failure, hypoxia 4. Obesity 5. Asthma Rec: 1. Cont. steroids, Remdesivir, inhaled bronchodilators 2. Monitor inflammatory markers 3. Cont. current dose of Lovenox 4. Further plans pending clinical course 5. Agree with convalescent plasma Subjective Date of service: 02/19/20 Principal diagnosis: Acute resp failure with hypoxia,Covid positive Interval history: Patient feels better. Comfortable on room air Objective Vital Signs - 12hr 02/19/20 02/19/20 02/19/20 04:39 09:46 09:47 Temperature 98.3 F Pulse Rate 77 Pulse Rate [ 78 Bilateral Throughout] Respiratory 18 Rate Respiratory 18 Rate [Bilateral Throughout] Blood Pressure 104/62 O2 Sat by Pulse 100 100 Oximetry Constitutional: no acute distress, alert Eyes: non-icteric ENT: oropharynx moist Neck: supple Ascultation: Bilateral: clear, diminished breath sounds Cardiovascular: regular rate and rhythm Gastrointestinal: normoactive bowel sounds, soft, non-tender, non-distended, other (obese) Integumentary: normal Extremities: no cyanosis Neurologic: normal mental status, non-focal exam Psychiatric: mood appropriate, affect normal CBC and BMP: 02/19/20 06:39 02/19/20 06:39 ABG, PT/INR, D-dimer: PT/INR, D-dimer PT 12.9 Sec. (12.2-14.9) 02/13/20 12:34 INR 0.96 (0.87-1.13) 02/13/20 12:34 D-Dimer 203.44 ng/mlDDU (0-234) 02/18/20 10:45 Abnormal lab findings: Abnormal Labs 02/13/20 02/13/20 02/13/20 12:34 12:34 12:34 WBC 2.5 L RBC 5.32 H Hgb 15.1 H Hct 44.8 H MCHC RDW 13.1 L Russell % (Auto) 10.5 H Lymph # (Auto) 0.8 L Seg Neuts % (Manual) Lymphocytes % (Manual) Seg Neutrophils # 1.4 L Seg Neutrophils # Man Lymphocytes # (Manual) D-Dimer 329.05 H Sodium 134 L BUN 6 L Creatinine Glucose POC Glucose Ferritin AST ALT Lactate Dehydrogenase 388 H Total Creatine Kinase 227 H Albumin Coronavirus (PCR) 02/13/20 02/14/20 02/14/20 12:34 08:29 08:29 WBC 1.6 L* RBC 5.31 H Hgb 15.2 H Hct 43.8 H MCHC 35 H RDW Russell % (Auto) Lymph # (Auto) Seg Neuts % (Manual) 83.0 H Lymphocytes % (Manual) 13.0 L Seg Neutrophils # Seg Neutrophils # Man 1.3 L Lymphocytes # (Manual) 0.2 L D-Dimer Sodium BUN 6 L Creatinine 0.5 L Glucose 123 H POC Glucose Ferritin 2487.0 H AST 122 H ALT 133 H Lactate Dehydrogenase Total Creatine Kinase Albumin Coronavirus (PCR) 02/14/20 02/16/20 02/16/20 Unknown 08:30 08:30 WBC RBC Hgb Hct MCHC RDW Russell % (Auto) Lymph # (Auto) Seg Neuts % (Manual) Lymphocytes % (Manual) Seg Neutrophils # Seg Neutrophils # Man Lymphocytes # (Manual) D-Dimer 271.95 H Sodium BUN Creatinine Glucose POC Glucose Ferritin 2000.0 H AST ALT Lactate Dehydrogenase Total Creatine Kinase Albumin Coronavirus (PCR) Positive A 02/16/20 02/16/20 02/16/20 08:30 16:01 17:24 WBC 4.3 L RBC Hgb 14.4 H Hct MCHC RDW Russell % (Auto) Lymph # (Auto) Seg Neuts % (Manual) Lymphocytes % (Manual) Seg Neutrophils # Seg Neutrophils # Man Lymphocytes # (Manual) D-Dimer Sodium BUN Creatinine Glucose POC Glucose 126 H Ferritin AST ALT Lactate Dehydrogenase 295 H Total Creatine Kinase Albumin Coronavirus (PCR) 02/17/20 02/17/20 02/17/20 07:57 08:26 17:32 WBC RBC Hgb Hct MCHC RDW Russell % (Auto) Lymph # (Auto) Seg Neuts % (Manual) Lymphocytes % (Manual) Seg Neutrophils # Seg Neutrophils # Man Lymphocytes # (Manual) D-Dimer Sodium BUN Creatinine Glucose POC Glucose 69 L 189 H Ferritin AST 64 H ALT 128 H Lactate Dehydrogenase Total Creatine Kinase Albumin 3.7 L Coronavirus (PCR) 02/17/20 02/18/20 02/18/20 21:57 05:44 05:44 WBC RBC Hgb Hct MCHC RDW Russell % (Auto) Lymph # (Auto) Seg Neuts % (Manual) Lymphocytes % (Manual) Seg Neutrophils # Seg Neutrophils # Man Lymphocytes # (Manual) D-Dimer Sodium BUN Creatinine Glucose POC Glucose 110 H Ferritin 1665.0 H AST ALT 98 H Lactate Dehydrogenase 237 H Total Creatine Kinase Albumin 3.4 L Coronavirus (PCR) 02/18/20 02/18/20 02/19/20 16:54 21:52 06:39 WBC 4.1 L RBC 5.07 H Hgb 14.7 H Hct MCHC 35 H RDW Russell % (Auto) Lymph # (Auto) Seg Neuts % (Manual) Lymphocytes % (Manual) Seg Neutrophils # Seg Neutrophils # Man Lymphocytes # (Manual) D-Dimer Sodium BUN Creatinine Glucose POC Glucose 185 H 168 H Ferritin AST ALT Lactate Dehydrogenase Total Creatine Kinase Albumin Coronavirus (PCR) 02/19/20 02/19/20 02/19/20 06:39 08:16 12:00 WBC RBC Hgb Hct MCHC RDW Russell % (Auto) Lymph # (Auto) Seg Neuts % (Manual) Lymphocytes % (Manual) Seg Neutrophils # Seg Neutrophils # Man Lymphocytes # (Manual) D-Dimer Sodium 135 L BUN Creatinine 0.4 L Glucose POC Glucose 119 H 120 H Ferritin AST ALT Lactate Dehydrogenase Total Creatine Kinase Albumin Coronavirus (PCR)
[2020-02-19] MEDS: ACETAMINOPHEN 325 MG TAB PO PRN (18:28)
[2020-02-19] MEDS: ENOXAPARIN 40 MG/0.4 ML INJ SUB-Q SCH (22:07)
[2020-02-19] MEDS: REMDESIVIR 100 MG in SODIUM CHLORIDE 0.9% 250ML 250 ML IV SCH (22:08)
[2020-02-19] MEDS: guaiFENesin DM 200/20 MG ORAL LIQD 10 ML PO PRN (22:08)
[2020-02-19] MEDS: SODIUM CHLORIDE 0.9% 50 ML IVPB IV SCH (22:09)
[2020-02-20] MEDS: ALBUTEROL 8.5 GM MDI INHALATION IH SCH ×6 (01:05→21:13)
[2020-02-20] MEDS: IPRATROPIUM/ALBUTEROL SULFATE 3 ML AMPUL.NEB IH SCH (03:35)
[2020-02-20] MEDS: BUDESONIDE 0.25 MG/2 ML NEBU IH SCH ×2 (08:00→21:12)
[2020-02-20] MEDS: ARFORMOTEROL 15 MCG/2 ML NEBU IH SCH ×2 (08:00→21:12)
[2020-02-20] MEDS: FAMOTIDINE 20 MG TAB PO SCH ×2 (09:28→22:52)
[2020-02-20] MEDS: DEXAMETHASONE 4 MG TAB PO SCH (09:28)
--- NOTE | 2020-02-20 10:03 | Discharge Summary ---
Providers - Providers Date of Admission: 02/13/20 14:08 Date of discharge: 02/20/20 Attending physician: STEFANIE MENDOSA 02/14/20 18:49 Consult to Physician [CONS] Routine Comment: Consulting Provider: WILDER ADKINS Physician Instructions: Reason For Exam: Covid positive,Hypoxia 02/15/20 20:21 Consult to Physician [CONS] Routine Comment: Consulting Provider: MENA VALERIO Physician Instructions: Reason For Exam: h/o asthma, COVID PNA, worsening hypoxia Primary care physician: HEALTH POLICY NURSE Hospitalization Condition: Stable Hospital course: This is a 37-year-old female who had a test I believe that an outpatient clinic on Friday which was positive for Covid. She states that she was short of breath. It became acutely worse today when EMS was summoned. She has been coughing frequently albeit nonproductive. She states that she has had change in her sense of smell and taste. Assessment and Plan - Patient Problems (1) COVID-19 viral Infection-condition stable ID and drier and grinder tender following Given azithromycin and Rocephin on 02/13 procalcitonin- normal Dexamethasone 6mg PO x10 days started on 02/13-02/22 Monitored inflammatory makers 02/15 initiated remdesivir and completed 02/19 SARS-CoV-2 IgG negative-Patient signed consent for convalescent plasma. 02/19/20 consvalescent plasma given (2) Acute respiratory failure with hypoxia-has resolved Home oxygen evaluation done-pt do not need oxygen for d/c (3) Bilateral pneumonia likely 2/2 to covid infection Admit CXR showed no acute abnormality 02/15 CTA showed bibasilar subsegmental atelectasis but negative for PE (4) Neutropenia-improved likely 2/2 to covid Neutropenic precautions Presented with WBC 2.5 now 1.6 on 02/13, WBC 4.3 on 02/15 (5) Acute gastroenteritis-resolvede Antiemetic prn (6) Asthma-stable H/O asthma Resume home pulm regimen-bronchodilator 7) Morbid obesity Current Visit: Yes Status: Chronic Discussed lifstyle modification Healthy diet and weight management (8) Elevated n-qfrjl-[id number] down Admit ddimer 329, 02/15 271.95 02/14 CTA negative for PE and bilateral leg US-negative for DVT (9) Transaminitis likely 2/2 to Covid infection-improving Presented with AST 122/ ALT 133 Monitor liver enzymes 02/15 initiated on remdesivir therapy 02/16 AST 64, ALT 128 and on 02/17 - patient condition has improved. At discharge assessment, patient denies chest pain, sob, and N/V Patient advised to be on home self quarantine. Advised to wear face when around people and observe social distancing. patient also advised to return to ED with worsening symptoms. Disposition: - TO HOME OR SELFCARE Core Measure Documentation - Palliative Care Palliative Care/ Comfort Measures: Not Applicable - Core Measures Any of the following diagnoses?: none Exam - Constitutional Vitals: Temp Pulse Resp BP Pulse Ox 98.2 F 88 20 91/50 100 02/20/20 04:53 02/20/20 08:10 02/20/20 08:10 02/20/20 06:41 02/20/20 08:18 General appearance: Present: no acute distress, well-nourished - EENT Eyes: Present: PERRL ENT: hearing intact, clear oral mucosa - Neck Neck: Present: supple, normal ROM - Respiratory Respiratory effort: normal Respiratory: bilateral: CTA - Cardiovascular Heart Sounds: Present: S1 & S2. Absent: rub, click - Extremities Extremities: pulses symmetrical, No edema Peripheral Pulses: within normal limits - Abdominal General gastrointestinal: Present: soft, non-tender, non-distended, normal bowel sounds Female genitourinary: Present: normal - Integumentary Integumentary: Present: clear, warm, dry - Musculoskeletal Musculoskeletal: gait normal, strength equal bilaterally - Psychiatric Psychiatric: appropriate mood/affect, intact judgment & insight - Neurologic Neurologic: CNII-XII intact, moves all extremities Plan Follow up with: PRIMARY CARE, [Primary Care Provider] - 3-5 Days Prescriptions: dexAMETHasone [Decadron] 6 mg PO DAILY 4 Days #4 tablet
--- NOTE | 2020-02-20 12:10 | Progress Note ---
Assessment and Plan Assessment and Plan Imp: 1. Covid-19 2. Viral pneumonia 3. Acute respiratory failure, hypoxia 4. Obesity 5. Asthma Rec: 1. Cont. steroids, Remdesivir, inhaled bronchodilators 2. Monitor inflammatory markers 3. Cont. current dose of Lovenox 4. Further plans pending clinical course 5. Agree 1 convalescent plasma 6. Follow-up chest x-ray tomorrow Subjective Date of service: 02/20/20 Principal diagnosis: Acute resp failure with hypoxia,Covid positive Interval history: Patient feels better. Comfortable on room air Objective Vital Signs - 12hr 02/20/20 02/20/20 02/20/20 01:06 EDT 01:08 EDT 04:53 Temperature 98.2 F Pulse Rate 71 Pulse Rate [ 88 Bilateral Throughout] Respiratory 20 Rate Respiratory 20 Rate [Bilateral Throughout] Blood Pressure 85/46 Blood Pressure [Left] O2 Sat by Pulse 98 100 Oximetry 02/20/20 02/20/20 02/20/20 05:15 06:41 08:10 Temperature Pulse Rate Pulse Rate [ 88 88 Bilateral Throughout] Respiratory Rate Respiratory 20 20 Rate [Bilateral Throughout] Blood Pressure Blood Pressure 91/50 [Left] O2 Sat by Pulse Oximetry 02/20/20 08:18 Temperature Pulse Rate Pulse Rate [ Bilateral Throughout] Respiratory Rate Respiratory Rate [Bilateral Throughout] Blood Pressure Blood Pressure [Left] O2 Sat by Pulse 100 Oximetry Constitutional: no acute distress, alert Eyes: non-icteric ENT: oropharynx moist Neck: supple Ascultation: Bilateral: clear, diminished breath sounds Cardiovascular: regular rate and rhythm Gastrointestinal: normoactive bowel sounds, soft, non-tender, non-distended, other (obese) Integumentary: normal Extremities: no cyanosis Neurologic: normal mental status, non-focal exam Psychiatric: mood appropriate, affect normal CBC and BMP: 02/19/20 06:39 02/19/20 06:39 ABG, PT/INR, D-dimer: PT/INR, D-dimer PT 12.9 Sec. (12.2-14.9) 02/13/20 12:34 INR 0.96 (0.87-1.13) 02/13/20 12:34 D-Dimer 203.44 ng/mlDDU (0-234) 02/18/20 10:45 Abnormal lab findings: Abnormal Labs 02/13/20 02/13/20 02/13/20 12:34 12:34 12:34 WBC 2.5 L RBC 5.32 H Hgb 15.1 H Hct 44.8 H MCHC RDW 13.1 L [place] % (Auto) 10.5 H Lymph # (Auto) 0.8 L Seg Neuts % (Manual) Lymphocytes % (Manual) Seg Neutrophils # 1.4 L Seg Neutrophils # Man Lymphocytes # (Manual) D-Dimer 329.05 H Sodium 134 L BUN 6 L Creatinine Glucose POC Glucose Ferritin AST ALT Lactate Dehydrogenase 388 H Total Creatine Kinase 227 H Albumin Coronavirus (PCR) 02/13/20 02/14/20 02/14/20 12:34 08:29 08:29 WBC 1.6 L* RBC 5.31 H Hgb 15.2 H Hct 43.8 H MCHC 35 H RDW [place] % (Auto) Lymph # (Auto) Seg Neuts % (Manual) 83.0 H Lymphocytes % (Manual) 13.0 L Seg Neutrophils # Seg Neutrophils # Man 1.3 L Lymphocytes # (Manual) 0.2 L D-Dimer Sodium BUN 6 L Creatinine 0.5 L Glucose 123 H POC Glucose Ferritin 2487.0 H AST 122 H ALT 133 H Lactate Dehydrogenase Total Creatine Kinase Albumin Coronavirus (PCR) 02/14/20 02/16/20 02/16/20 Unknown 08:30 08:30 WBC RBC Hgb Hct MCHC RDW [place] % (Auto) Lymph # (Auto) Seg Neuts % (Manual) Lymphocytes % (Manual) Seg Neutrophils # Seg Neutrophils # Man Lymphocytes # (Manual) D-Dimer 271.95 H Sodium BUN Creatinine Glucose POC Glucose Ferritin 2000.0 H AST ALT Lactate Dehydrogenase Total Creatine Kinase Albumin Coronavirus (PCR) Positive A 02/16/20 02/16/20 02/16/20 08:30 16:01 17:24 WBC 4.3 L RBC Hgb 14.4 H Hct MCHC RDW [place] % (Auto) Lymph # (Auto) Seg Neuts % (Manual) Lymphocytes % (Manual) Seg Neutrophils # Seg Neutrophils # Man Lymphocytes # (Manual) D-Dimer Sodium BUN Creatinine Glucose POC Glucose 126 H Ferritin AST ALT Lactate Dehydrogenase 295 H Total Creatine Kinase Albumin Coronavirus (PCR) 02/17/20 02/17/20 02/17/20 07:57 08:26 17:32 WBC RBC Hgb Hct MCHC RDW [place] % (Auto) Lymph # (Auto) Seg Neuts % (Manual) Lymphocytes % (Manual) Seg Neutrophils # Seg Neutrophils # Man Lymphocytes # (Manual) D-Dimer Sodium BUN Creatinine Glucose POC Glucose 69 L 189 H Ferritin AST 64 H ALT 128 H Lactate Dehydrogenase Total Creatine Kinase Albumin 3.7 L Coronavirus (PCR) 02/17/20 02/18/20 02/18/20 21:57 05:44 05:44 WBC RBC Hgb Hct MCHC RDW [place] % (Auto) Lymph # (Auto) Seg Neuts % (Manual) Lymphocytes % (Manual) Seg Neutrophils # Seg Neutrophils # Man Lymphocytes # (Manual) D-Dimer Sodium BUN Creatinine Glucose POC Glucose 110 H Ferritin 1665.0 H AST ALT 98 H Lactate Dehydrogenase 237 H Total Creatine Kinase Albumin 3.4 L Coronavirus (PCR) 02/18/20 02/18/20 02/19/20 16:54 21:52 06:39 WBC 4.1 L RBC 5.07 H Hgb 14.7 H Hct MCHC 35 H RDW [place] % (Auto) Lymph # (Auto) Seg Neuts % (Manual) Lymphocytes % (Manual) Seg Neutrophils # Seg Neutrophils # Man Lymphocytes # (Manual) D-Dimer Sodium BUN Creatinine Glucose POC Glucose 185 H 168 H Ferritin AST ALT Lactate Dehydrogenase Total Creatine Kinase Albumin Coronavirus (PCR) 02/19/20 02/19/20 02/19/20 06:39 08:16 12:00 WBC RBC Hgb Hct MCHC RDW [place] % (Auto) Lymph # (Auto) Seg Neuts % (Manual) Lymphocytes % (Manual) Seg Neutrophils # Seg Neutrophils # Man Lymphocytes # (Manual) D-Dimer Sodium 135 L BUN Creatinine 0.4 L Glucose POC Glucose 119 H 120 H Ferritin AST ALT Lactate Dehydrogenase Total Creatine Kinase Albumin Coronavirus (PCR) 02/19/20 02/19/20 18:45 22:36 WBC RBC Hgb Hct MCHC RDW [place] % (Auto) Lymph # (Auto) Seg Neuts % (Manual) Lymphocytes % (Manual) Seg Neutrophils # Seg Neutrophils # Man Lymphocytes # (Manual) D-Dimer Sodium BUN Creatinine Glucose POC Glucose 187 H 106 H Ferritin AST ALT Lactate Dehydrogenase Total Creatine Kinase Albumin Coronavirus (PCR)
--- NOTE | 2020-02-20 15:24 | Progress Note ---
Assessment and Plan Assessment and Plan - Patient Problems (1) COVID-19 viral Infection Current Visit: Yes Status: Acute Plan to address problem: Continue current medical care ID and utility mechanic following On azithromycin and Rocephin on 02/13 however CRP and procalcitonin normal Pulmanory hygiene and OOB TID and prn Dexamethasone 6mg PO x10 days started on 02/13-02/22 Trend inflammatory makers 02/15 initiated remdesivir by ID SARS-CoV-2 IgG negative-Patient signed consent for convalescent plasma. reviewed ID note -patient will start on consvalescent plasma (2) Acute respiratory failure with hypoxia Current Visit: Yes Status: Acute Plan to address problem: continue Supplemental oxygenation as needed Advised on use of IS Home oxygen evaluation done-patients oxygen sat on room air 82% and patient had shortness of breath Patient needs oxygen at 3 liters to [place] sat of 99 to 100% (3) Bilateral pneumonia likely 2/2 to covid infection Current Visit: Yes Status: Acute Qualifiers: Pneumonia type: due to unspecified organism Lung location: unspecified part of lung Qualified Code(s): J18.9 - Pneumonia, unspecified organism Plan to address problem: Admit CXR showed no acute abnormality 02/15 CTA showed bibasilar subsegmental atelectasis but negative for PE (4) Neutropenia Current Visit: Yes Status: Resolved Qualifiers: Neutropenia type: due to infection Qualified Code(s): D70.3 - Neutropenia due to infection Plan to address problem: likely 2/2 to covid Neutropenic precautions Presented with WBC 2.5 now 1.6 on 02/13, WBC 4.3 on 02/15 Monitor CBC (5) Acute gastroenteritis Current Visit: No Status: Acute Plan to address problem: likely 2/2 to COVID Suppprotive care Antiemetic prn (6) Asthma Current Visit: No Status: Chronic Plan to address problem: H/O asthma Resume home pulm regimen-bronchodilator Pulmonology following 7) Morbid obesity Current Visit: Yes Status: Chronic Plan to address problem: Discussed lifstyle modification Healthy diet and weight management (8) Elevated d-dimer Current Visit: Yes Status: Acute Plan to address problem: Admit ddimer 329, 02/15 271.95 Anticoagulation per protocol 02/14 CTA negative for PE and bilateral leg US-negative for DVT (9) Transaminitis likely 2/2 to Covid infection-improving Current Visit: Yes Status: Acute Plan to address problem: Presented with AST 122/ ALT 133 Monitor liver enzymes 02/15 initiated on remdesivir therapy 02/16 AST 64, ALT 128 and on 02/17 - (10) DVT prophylaxis Current Visit: No Status: Acute Plan to address problem: GI and DVT prophylaxis SCDS to BLE while in bed Subjective Principal diagnosis: Acute resp failure with hypoxia,Covid positive Interval history: Patient seen at bedside. She is on oxygen at 2 liters N/C. She calm and note in acute distress Reviewed lab, mar, and V/S. 02/16: Convalescent plasma ordered, COVID-19 antibody negative, day 2 of remdesivir therapy 02/15: Patient was initiated on remdesivir today and and she is on dexamethasone daily. 02/14: Due to her admit D-dimer of 329 with need for supplemental oxygenation a CTA chest was obtained which showed no acute pulmonary embolism but showed low lung volumes with moderate bibasilar subsegmental and dependent atelectasis. Bilateral lower extremity Dopplers showed no acute DVT 02/13: COVID-19 PCR positive 02/19/20-Reviewed ID note-input appreciated 02/20/20-patient seen at bedside. on oxygen n/c-calm and note in diistress Reviewed specialist [id number]-[id number] x-ray in am Home oxygen evaluation done-patients oxygen sat on room air 82% and patient had shortness of breath Patient needs oxygen at 3 liters to [place] sat of 99 to 100% Objective - Constitutional Vitals: Vital Signs - 12hr 02/20/20 02/20/20 02/20/20 04:53 05:15 06:41 Temperature 98.2 F Pulse Rate 71 Pulse Rate [ 88 Bilateral Throughout] Respiratory 20 Rate Respiratory 20 Rate [Bilateral Throughout] Blood Pressure 85/46 Blood Pressure 91/50 [Left] O2 Sat by Pulse 100 Oximetry 02/20/20 02/20/20 02/20/20 08:10 08:18 12:20 Temperature 97.7 F Pulse Rate 96 H Pulse Rate [ 88 Bilateral Throughout] Respiratory 19 Rate Respiratory 20 Rate [Bilateral Throughout] Blood Pressure 99/65 Blood Pressure [Left] O2 Sat by Pulse 100 100 Oximetry General appearance: Present: obese - EENT Eyes: PERRL, EOM intact ENT: hearing intact, clear oral mucosa Ears: bilateral: normal - Neck Neck: supple, normal ROM - Respiratory Respiratory effort: normal Respiratory: bilateral: CTA - Breasts Breasts: normal - Cardiovascular Rhythm: regular Heart Sounds: Present: S1 & S2. Absent: gallop, rub Extremities: pulses intact, No edema, normal color, Full ROM - Gastrointestinal General gastrointestinal: Present: soft, non-tender, non-distended, normal bowel sounds - Genitourinary Female genitourinary: normal - Integumentary Integumentary: clear, warm, dry - Musculoskeletal Musculoskeletal: 1, strength equal bilaterally - Neurologic Neurologic: moves all extremities - Psychiatric Psychiatric: memory intact, appropriate mood/affect, intact judgment & insight - Labs CBC & Chem 7: 02/19/20 06:39 02/19/20 06:39 Labs: Abnormal lab results 02/19/20 02/19/20 Range/Units 18:45 22:36 POC Glucose 187 H 106 H (70-105) mg/dL HEART Score - HEART Score Troponin: Troponin T < 0.010 ng/mL (0.00-0.029) 02/13/20 12:34
[2020-02-20] MEDS: ACETAMINOPHEN 325 MG TAB PO PRN (20:35)
[2020-02-20] MEDS: ENOXAPARIN 40 MG/0.4 ML INJ SUB-Q SCH (22:52)
[2020-02-20] MEDS: REMDESIVIR 100 MG in SODIUM CHLORIDE 0.9% 250ML 250 ML IV SCH (22:52)
[2020-02-20] MEDS: SODIUM CHLORIDE 0.9% 50 ML IVPB IV SCH (22:52)
[2020-02-21] MEDS: ALBUTEROL 8.5 GM MDI INHALATION IH SCH ×4 (01:28→14:20)
[2020-02-21] MEDS ORDERED: SODIUM CHLORIDE 0.9% 100 ML IVPB IV ONE (07:18)
[2020-02-21] MEDS ORDERED: SODIUM CHLORIDE 0.9% 250ML 250 ML IV ONE (08:00)
--- NOTE | 2020-02-21 09:38 | XRay Report ---
CHEST 1 VIEW INDICATION: pneumonia. COMPARISON: 02/13/2020 FINDINGS: Support devices: None. Heart: Within normal limits. Lungs/Pleura: There is poor inspiration. No acute air space or interstitial disease. Additional findings: None. IMPRESSION: No acute findings. Signer Name: Jim Stokes Jr, MD Signed: 02/21/2020 9:34 AM Workstation Name: [id number]
[2020-02-21] MEDS: ARFORMOTEROL 15 MCG/2 ML NEBU IH SCH (10:32)
[2020-02-21] MEDS: BUDESONIDE 0.25 MG/2 ML NEBU IH SCH (10:32)
[2020-02-21] MEDS ORDERED: BUDESONIDE 0.25 MG/2 ML NEBU IH SCH (10:34)
[2020-02-21] MEDS ORDERED: BUDESONIDE 0.5 MG/2 ML NEBU IH SCH (10:40)
[2020-02-21] MEDS: DEXAMETHASONE 4 MG TAB PO SCH (12:01)
[2020-02-21] MEDS: FAMOTIDINE 20 MG TAB PO SCH (12:01)
--- NOTE | 2020-02-21 13:30 | Progress Note ---
Assessment and Plan Cultures: Blood culture no growth today SARS CoV2 PCR positive SARS CoV2 IgG negative Assessment: 29 years old female with history of asthma, admitted on 02/13/2020 due to 4-day history of generalized malaise, cough, loss of taste and smell and progressive shortness of breath, she tested positive for COVID-19 on 02/08/2020: #Neutropenia: due to COVID, improving #Severe COVID pneumonia: Inflammatory markers elevated, improving #Acute hypoxemic respiratory failure: Initial Sats dropped to 51%, now on 2 L nasal cannula. Desatted 82% on ambulation #Elevated LFTs: from COVID, improving Recommendations: -Recheck exercise pulse O2 -SARS CoV-2 IgG is negative, patient may benefit from COVID convalescent plasma, ordered -Continue dexamethasone 6 mg IV/PO daily for 10 days -S/p Remdesivir -Continue anticoagulation per System Protocol -Prone positioning as possible -Pulmonary on board Will follow Roma Winters MD Infectious Diseases Internet Site Designer [facility] ([facility]) M [phone] O [phone] Subjective Date of service: 02/21/20 Principal diagnosis: Acute resp failure with hypoxia,Covid positive Interval history: Remains on 2L NC no fever, noted desaturations 82% on ambulation Objective - Exam Narrative Exam: Physical Exam: reviewed ED and hospitalist notes, limited due to conservation of PPE and decrease risk of transmission. General appearance: limited due to conservation of PPE Eyes: limited due to conservation of PPE HENT: Atraumatic; limited due to conservation of PPE Lungs: limited due to conservation of PPE CV: limited due to conservation of PPE Abdomen: limited due to conservation of PPE Extremities: limited due to conservation of PPE Skin: limited due to conservation of PPE Psych: limited due to conservation of PPE Neuro: limited due to conservation of PPE - Constitutional Vitals: Vital Signs Temp Pulse Resp BP Pulse Ox 98.9 F 78 18 85/55 100 02/20/20 20:57 02/21/20 04:13 02/21/20 04:13 02/20/20 20:57 02/21/20 06:48 Temperature -Last 24 Hours Temperature 98.9 F Temperature 98.2 F - Labs CBC & Chem 7: 02/19/20 06:39 02/19/20 06:39
[2020-02-21 13:46] VITALS: BP 102/71
--- NOTE | 2020-02-21 14:07 | Discharge Summary ---
Providers - Providers Date of Admission: 02/13/20 14:08 Attending physician: STEFANIE MENDOSA 02/14/20 18:49 Consult to Physician [CONS] Routine Comment: Consulting Provider: WILDER ADKINS Physician Instructions: Reason For Exam: Covid positive,Hypoxia 02/15/20 20:21 Consult to Physician [CONS] Routine Comment: Consulting Provider: MENA VALERIO Physician Instructions: Reason For Exam: h/o asthma, COVID PNA, worsening hypoxia Primary care physician: TRADEMARK PARALEGAL Hospitalization Condition: Stable Hospital course: 37-year-old female with asthma comes in for increasing shortness of breath for 5 days, coughing, body aches and shortness of breath on 02/12. Patient was apparently tested positive for coronavirus on 02/08/2020. Recommend emergency department included a CXR which showed suboptimal inspiration but no definite acute disease. Upon arrival she was leukopenic, slightly hyponatremic, elevated D-dimer and had transaminitis. She was initiated on azithromycin, ceftriaxone and dexamethasone. Infectious disease was consulted and so was pulmonology given worsening respiratory status. On 02/13 a COVID-19 PCR was positive. On 02/14 she received a CTA chest which showed no acute pulmonary embolism but showed low lung volumes with moderate bibasilar subsegmental and dependent atelectasis. Her bilateral lower extremity Dopplers were also negative. Patient completed remdesivir therapy (02/15 through 02/18) and she received, some plasma on 02/18. She went to follow-up with her primary care physician within 1 to 2 weeks of discharge. She will be discharged with home oxygen and to finish a 10-day course of dexamethasone till 02/22. - Patient Problems (1) COVID-19 viral Infection Current Visit: Yes Status: Acute Plan to address problem: Continue current medical care ID and upper cutter machine following On azithromycin and Rocephin on 02/13 however CRP and procalcitonin normal and he was discontinued by ID Pulmanory hygiene and OOB TID and prn Dexamethasone 6mg PO x10 days started on 02/13-02/22 S/p remdesivir therapy SARS-CoV-2 IgG negative-received convalescent plasma on 02/18 (2) Acute respiratory failure with hypoxia Current Visit: Yes Status: Acute Plan to address problem: Home oxygen evaluation done-patients oxygen sat on room air 82% and patient had shortness of breath Patient needs oxygen at 3 liters to [place] sat of 99 to 100% He will be discharged on home oxygen Will need to follow-up with primary care physician within 1 to 2 weeks of discharge for reevaluation of her home O2 (3) Bilateral pneumonia likely 2/2 to covid infection Current Visit: Yes Status: Acute Qualifiers: Pneumonia type: due to unspecified organism Lung location: unspecified part of lung Qualified Code(s): J18.9 - Pneumonia, unspecified organism Plan to address problem: Admit CXR showed no acute abnormality 02/15 CTA showed bibasilar subsegmental atelectasis but negative for PE (4) Neutropenia Current Visit: Yes Status: Resolved Qualifiers: Neutropenia type: due to infection Qualified Code(s): D70.3 - Neutropenia due to infection Plan to address problem: likely 2/2 to covid Neutropenic precautions Presented with WBC 2.5 now 1.6 on 02/13, WBC 4.3 on 02/15 Monitor CBC (5) Acute gastroenteritis Current Visit: No Status: Resolved Plan to address problem: likely 2/2 to COVID (6) Asthma Current Visit: No Status: Chronic Plan to address problem: H/O asthma Resume home pulm regimen-bronchodilator 40 to follow-up with home upper cutter machine 7) Morbid obesity Current Visit: Yes Status: Chronic Plan to address problem: Discussed lifstyle modification Healthy diet and weight management (8) Elevated d-dimer Current Visit: Yes Status: Acute Plan to address problem: Admit ddimer 329, 02/15 271.95 Anticoagulation per protocol 02/14 CTA negative for PE and bilateral leg US-negative for DVT (9) Transaminitis likely 2/2 to Covid infection Current Visit: Yes Status: Improving Plan to address problem: Presented with AST 122/ ALT 133 Monitor liver enzymes 02/15 initiated on remdesivir therapy 02/16 AST 64, ALT 128 and on 02/17 - Disposition: DC-01 TO HOME OR SELFCARE Time spent for discharge: 35 Core Measure Documentation - Palliative Care Palliative Care/ Comfort Measures: Not Applicable - Core Measures Any of the following diagnoses?: none Exam - Constitutional Vitals: Temp Pulse Resp BP Pulse Ox 97.9 F 92 H 16 102/71 100 02/21/20 12:19 02/21/20 12:19 02/21/20 12:19 02/21/20 12:19 02/21/20 12:19 General appearance: Present: no acute distress - EENT Eyes: Present: PERRL, EOM intact ENT: hearing intact, clear oral mucosa - Neck Neck: Present: supple, normal ROM - Respiratory Respiratory effort: normal Respiratory: bilateral: diminished - Cardiovascular Rhythm: regular Heart Sounds: Present: S1 & S2. Absent: systolic murmur, diastolic murmur - Extremities Extremities: no ischemia, pulses intact, pulses symmetrical, No edema, normal temperature, normal color, Full ROM Peripheral Pulses: within normal limits - Abdominal General gastrointestinal: Present: soft, non-tender, normal bowel sounds - Integumentary Integumentary: Present: clear, warm, dry - Musculoskeletal Musculoskeletal: strength equal bilaterally - Psychiatric Psychiatric: appropriate mood/affect, cooperative - Neurologic Neurologic: CNII-XII intact, no focal deficits, moves all extremities - Allied Health Allied health notes reviewed: nursing Plan Activity: advance as tolerated Diet: low fat, low cholesterol, low salt Special Instructions: home oxygen via Additional Instructions: Report to nearest emergency department contact primary care physician if experience worsening symptoms. Follow-up with your primary care physician within 1 to 2 weeks of discharge. You will be discharged with home oxygen and with dexamethasone to complete a 10-day course. Follow up with: PRIMARY CARE, [Primary Care Provider] - 3-5 Days Forms: Work/School Release Form Prescriptions: dexAMETHasone [Decadron] 6 mg PO DAILY 4 Days #4 tablet dexAMETHasone [Dexamethasone] 6 mg PO QDAY #2 tablet
== END 2020-02-21 16:00 | disposition home or self-care (01) | DRG 177 ==
LOC: ED 12:06 → 3A 14:08
PROVIDERS: ADMIT Internal Medicine; ATTEND Internal Medicine
PROC: XW033E5 Introduction of Remdesivir Anti-infective into Peripheral Vein, Percutaneous Approach, New Technology Group 5 (ICD-10-PCS; principal; 2020-02-16)
PROC: XW13325 Transfusion of Convalescent Plasma (Nonautologous) into Peripheral Vein, Percutaneous Approach, New Technology Group 5 (ICD-10-PCS; 2020-02-19)
DX: U07.1 COVID-19 (principal); J96.01 Acute respiratory failure with hypoxia; J12.89 Other viral pneumonia; D70.9 Neutropenia, unspecified; K52.9 Noninfective gastroenteritis and colitis, unspecified; J45.909 Unspecified asthma, uncomplicated; R79.1 Abnormal coagulation profile; E66.01 Morbid (severe) obesity due to excess calories; R74.01 Elevation of levels of liver transaminase levels; Z91.013 Allergy to seafood; Z68.38 Body mass index [BMI] 38.0-38.9, adult
CPT/HCPCS: 36415; 71045; 71275; 80048; 80053; 80076; 80307; 81001; 81025; 82140; 82550; 82553; 82728; 82962; 83615; 83735; 83880; 84145; 84484; 85007; 85025; 85027; 85379; 85610; 85730; 86140; 86850; 86900; 86901; 87040; 93005; 93970; 94640; 94760; 96361; 96374; 96375; 96376; G0378; J0456; J0696; J1100; J1650; J7030; J7050; J8540; P9017; Q0169; Q9967; U0003

== ENCOUNTER 2020-08-22 11:56 | Emergency (ER) | payer MEDICAID, SELFPAY ==
[2020-08-22] MEDS ORDERED: HYDROcodone/ACETAMINOPHEN 5-325 MG TAB PO ONE (13:19)
[2020-08-22] MEDS ORDERED: diazePAM 5 MG TAB PO ONE (13:19)
[2020-08-22] MEDS ORDERED: dexAMETHasone 20 MG/5 ML VIAL IM ONE (13:19)
--- NOTE | 2020-08-22 13:27 | Emergency Department Report ---
ED Back Pain/Injury HPI - General Chief Complaint: Back Pain/Injury Stated Complaint: BACK PAIN Time Seen by Provider: 08/22/20 12:57 Source: patient Limitations: No Limitations - History of Present Illness Initial Comments: 30 year old obese patient with no significant past medical history presents to ED with complaints of severe low back pain. Patient starts that she noticed the pain mildly around 11am while driving to work, then when she got to work and tried to get out of the car pain got worse and as she tried to continue with her day, the pain continued to get worse and so she decided to come to ED. She states pain radiates into her buttocks. She states its worse with any movement including moving her legs and ambulation. She denies any associated bowel or bladder incontinence, LE weakness, numbness and tingling, saddle anesthesia, fever or chills. She denies abd pain, cp or UTi symptoms. She denies any injury or strenous activity. She states she mainly sits at work. She denies hx of chronic back issues or similar symptoms in past. MD Complaint: back pain -: Gradual (this morning around 11am ) Similar Symptoms Previously: No - Related Data Previous Rx's Medication Instructions Recorded Last Taken Type dexAMETHasone [Decadron] 6 mg PO DAILY 4 Days #4 tablet 02/20/20 Unknown Rx Budesonide [Pulmicort Respules] 0.5 mg IH Q12HRT nebu 02/21/20 Unknown Rx dexAMETHasone [Dexamethasone] 6 mg PO QDAY #2 tablet 02/21/20 Unknown Rx HYDROcodone/APAP 5-325 [[place] 1 each PO Q4HR PRN #12 tablet 08/22/20 Unknown Rx 5/325] Lidocaine [Lidoderm] 1 each TP Q12HR #10 adh..patch 08/22/20 Unknown Rx methOCARBAMOL [Robaxin TAB] 750 mg PO Q8H PRN #30 tablet 08/22/20 Unknown Rx methylPREDNISolone [Medrol 4MG 4 mg PO DAILY #1 tab.ds.pk 08/22/20 Unknown Rx DOSEPAK (21 tabs)] Allergies Allergy/AdvReac Type Severity Reaction Status Date / Time shellfish derived AdvReac Intermediate Hives Verified 08/22/20 12:33 ED Review of Systems ROS: Stated complaint: BACK PAIN Other details as noted in HPI Comment: All other systems reviewed and negative Constitutional: denies: chills, diaphoresis, fever, malaise, weakness Eyes: denies: eye pain, eye discharge, vision change ENT: denies: ear pain, throat pain, dental pain, hearing loss, epistaxis, rosibel estion Respiratory: no symptoms reported. denies: cough, orthopnea, shortness of breath, SOB with exertion, SOB at rest, wheezing Cardiovascular: denies: chest pain, palpitations Gastrointestinal: denies: abdominal pain, nausea, vomiting, diarrhea, constipation, hematemesis, melena, hematochezia Genitourinary: denies: urgency, dysuria, frequency, hematuria, discharge, abnormal menses, dyspareunia Musculoskeletal: back pain. denies: joint swelling, arthralgia, myalgia Skin: as per HPI. denies: rash, lesions, change in color, change in hair/nails, pruritus, other Neurological: denies: headache, weakness, numbness, paresthesias, confusion, abnormal gait, vertigo, other Psychiatric: denies: anxiety, depression, auditory hallucinations, visual hallucinations, homicidal thoughts, suicidal thoughts Hematological/Lymphatic: denies: easy bleeding, easy bruising ED Past Medical Hx - Past Medical History Hx Hypertension: No Hx Heart Attack/AMI: No Hx Congestive Heart Failure: No Hx Diabetes: No Hx Deep Vein Thrombosis: No Hx Pulmonary Embolism: No Hx Liver Disease: No Hx Renal Disease: No Hx Sickle Cell Disease: No Hx Arthritis: No Hx Seizures: No Hx Kidney Stones: No Hx Asthma: Yes Hx COPD: No Hx Tuberculosis: No Hx Dementia: No Hx HIV: No Additional medical history: Apparently the patient was transferred to [place] [facility] in 2018 for suicidal ideation. - Surgical History Hx Coronary Stent: No Hx Pacemaker: No Hx Internal Defibrillator: No Hx Cholecystectomy: Yes (09/03/2013) - Social History Smoking Status: Never Smoker Substance Use Type: None - Medications Home Medications: Home Medications Medication Instructions Recorded Confirmed Last Taken Type dexAMETHasone [Decadron] 6 mg PO DAILY 4 Days #4 tablet 02/20/20 Unknown Rx Budesonide [Pulmicort Respules] 0.5 mg IH Q12HRT nebu 02/21/20 Unknown Rx dexAMETHasone [Dexamethasone] 6 mg PO QDAY #2 tablet 02/21/20 Unknown Rx HYDROcodone/APAP 5-325 [[place] 1 each PO Q4HR PRN #12 tablet 08/22/20 Unknown Rx 5/325] Lidocaine [Lidoderm] 1 each TP Q12HR #10 adh..patch 08/22/20 Unknown Rx methOCARBAMOL [Robaxin TAB] 750 mg PO Q8H PRN #30 tablet 08/22/20 Unknown Rx methylPREDNISolone [Medrol 4MG 4 mg PO DAILY #1 tab.ds.pk 08/22/20 Unknown Rx DOSEPAK (21 tabs)] ED Physical Exam - General Limitations: No Limitations General appearance: alert, in distress (secondary to pain ), obese - Head Head exam: Present: atraumatic, normocephalic, normal inspection - Eye Eye exam: Present: normal appearance, PERRL, EOMI Pupils: Present: normal accommodation - ENT ENT exam: Present: normal exam, mucous membranes moist, TM's normal bilaterally - Neck Neck exam: Present: normal inspection, full ROM - Respiratory Respiratory exam: Present: normal lung sounds bilaterally. Absent: respiratory distress, wheezes - Cardiovascular Cardiovascular Exam: Present: regular rate, normal rhythm, normal heart sounds - GI/Abdominal GI/Abdominal exam: Present: soft. Absent: distended, tenderness, guarding, rebound - Rectal Rectal exam: Present: normal inspection, normal rectal tone - Extremities Exam Extremities exam: Present: normal inspection, full ROM, normal capillary refill. Absent: tenderness, pedal edema, calf tenderness - Back Exam Back exam: Present: normal inspection, paraspinal tenderness, vertebral tenderness. Absent: full ROM (ROM reduced due to pain ) - Expanded Back Exam Expanded Back exam: Present: normal rectal tone. Absent: saddle anesthesia Back exam: Positive Straight Leg Raise: Right, Left (about 45 degrees) 1 - Mod ttp midline and paraspinal muscles. Normal to inspection. No deformity or step off - Neurological Exam Neurological exam: Present: alert, oriented X3, CN II-XII intact, other (gait n ot tested due to patient being in pain but she was able stand with help when transfered from wheel chair to bed. ) - Psychiatric Psychiatric exam: Present: normal affect, anxious - Skin Skin exam: Present: intact ED Course Vital Signs 08/22/20 08/22/20 08/22/20 12:31 13:48 16:01 Temperature 98.5 F Pulse Rate 76 Respiratory 20 22 20 Rate Blood Pressure 128/67 Blood Pressure [Left] O2 Sat by Pulse 100 Oximetry 08/22/20 17:23 Temperature 98.6 F Pulse Rate 84 Respiratory 20 Rate Blood Pressure Blood Pressure 132/76 [Left] O2 Sat by Pulse 98 Oximetry ED Medical Decision Making - Radiology Data Radiology results: report reviewed Patient: AFTAB WELCH MR#: [id number] : 1990 Acct:[id number] Age/Sex: 30 / F A DM Date: 08/22/20 Loc: ED Attending Dr: Ordering Physician: CINDI ROBERSON Date of Service: 08/22/20 Procedure(s): XR spine lumbosacral 2-3V Accession Number(s): [id number] cc: CINDI ROBERSON Fluoro Time In Minutes: LUMBAR SPINE 3 VIEWS INDICATION / CLINICAL INFORMATION: severe back pain. COMPARISON: None available. FINDINGS: VERTEBRAE: No acute fracture. No significant malalignment. DISC SPACES / FACET JOINTS:No significant abnormality. PARASPINAL SOFT TISSUES:No significant abnormality. ADDITIONAL FINDINGS: None. Signer Name: Anastacia Poe MD Signed: 08/22/2020 2:22 PM Workstation Name: [id number] Transcribed By: MELINDA Dictated By: Jaden Poe MD Electronically Authenticated By: Jaden Poe MD Signed Date/Time: 08/22/201421 DD/ 20 TD/TT: - Medical Decision Making 1629: The patient presented with acute back pain. Patient laying comfortably on her abdomen in the room but she states that she still is having some pain in her back mainly when she moves despite the medications given here in the ER. Her x- ray shows nothing acute. Urinalysis does not suggest a UTI. I was able to have patient stand up and help her ambulate to the bathroom. She was able to ambulate but just slow because of her pain in her back. Overall she is neurologically intact, strength of her lower extremities 5 out of 5, sensation is intact, and she does not have saddle anesthesia and she has a normal rectal tone on exam. The patient has no fever, no bowel or bladder incontinence, and is otherwise alert and well-appearing. Her history, physical examination and diagnostic testing does not suggest the presence of acute spinal epidural abscess, acute epidural bleed, cauda equina syndrome, abdominal/thoracic aortic aneurysm, aortic dissection or other acute process requiring further testing, treatment or consultation in the emergency department. Her vital signs have been stable. Discussed imaging results, ultrasound results, suspected diagnosis and treatment plan with patient. She will be given referral to local compound specialist for further evaluation and possible outpatient MRI especially if her symptoms continues. The patient condition is stable and appropriate for discharge. The patient will pursue further outpatient evaluation with the primary care physician or other designated or consulting physician as indicated in the discha rge instructions. Critical care attestation.: If time is entered above; I have spent that time in minutes in the direct care of this critically ill patient, excluding procedure time. ED Disposition Clinical Impression: Low back pain, Spasm of lumbar paraspinous muscle Disposition: TO HOME OR SELFCARE Is pt being admited?: No Does the pt Need Aspirin: No Condition: Stable Instructions: Muscle Cramps and Spasms, [id number], Acute Back Pain, Adult Additional Instructions: Take the norco, robaxin, medrol dose pack and lidoderm patch as prescribed. I recommend follow up with [facility] in [facility] if symptoms persist. Return to ED if symptoms changes or worsens in anyway. Prescriptions: Lidocaine [Lidoderm] 1 each TP Q12HR #10 adh..patch methylPREDNISolone [Medrol 4MG DOSEPAK (21 tabs)] 4 mg PO DAILY #1 tab.ds.pk HYDROcodone/APAP 5-325 [[place] 5/325] 1 each PO Q4HR PRN #12 tablet PRN Reason: Pain methOCARBAMOL [Robaxin TAB] 750 mg PO Q8H PRN #30 tablet PRN Reason: Spasms Referrals: DANAE BUTT MD [Staff Physician] - 3-5 Days [facility] [Other] - 3-5 Days Forms: Work/School Release Form(ED) Time of Disposition: 17:01
[2020-08-22] MEDS ORDERED: LIDOCAINE 5% 1 EACH PATCH TD ONE (14:00)
--- NOTE | 2020-08-22 14:26 | XRay Report ---
LUMBAR SPINE 3 VIEWS INDICATION / CLINICAL INFORMATION: severe back pain. COMPARISON: None available. FINDINGS: VERTEBRAE: No acute fracture. No significant malalignment. DISC SPACES / FACET JOINTS:No significant abnormality. PARASPINAL SOFT TISSUES:No significant abnormality. ADDITIONAL FINDINGS: None. Signer Name: Anastacia Poe MD Signed: 08/22/2020 2:22 PM Workstation Name: [id number]
[2020-08-22 15:32] LABS: Bacteria,Urine 1+ /HPF (Negative); Bilirubin,Urine NEG (Negative); Blood,Urine LG (Negative); Color,Urine Yellow (Yellow); Mucus,Urine FEW /HPF; Protein,Urine <15 mg/dL mg/dL (Negative); Urobilinogen,Urine < 2.0 mg/dL (<2.0)
[2020-08-22 15:37] LABS: HCG Qualitative,Urine Negative (Negative)
[2020-08-22] MEDS ORDERED: KETOROLAC 60 MG/2 ML INJ IM ONE (15:50)
[2020-08-22 17:24] VITALS: BP 132/76
== END 2020-08-22 17:23 | disposition home or self-care (01) ==
LOC: ED 11:56
DX: M62.830 Muscle spasm of back (principal); Z79.899 Other long term (current) drug therapy; Z91.013 Allergy to seafood
CPT/HCPCS: 72100; 81001; 81025; 96372; 99283; J1885

== ENCOUNTER 2021-06-18 08:53 | Emergency (ER) | payer BC, MEDICAID ==
[2021-06-18] MEDS ORDERED: ONDANSETRON 4 MG ODT TAB PO ONE (09:15)
[2021-06-18 09:46] LABS: Bilirubin,Urine NEG (Negative); Blood,Urine NEG (Negative); Color,Urine Yellow (Yellow); Protein,Urine <15 mg/dL mg/dL (Negative); Urobilinogen,Urine < 2.0 mg/dL (<2.0)
[2021-06-18 09:49] LABS: HCG Qualitative,Urine Negative (Negative); RBC,Urine < 1.0 /HPF (0.0-6.0); WBC,Urine < 1.0 /HPF (0.0-6.0)
--- NOTE | 2021-06-18 09:52 | Emergency Department Report ---
ED N/V/D HPI - General Chief complaint: Nausea/Vomiting/Diarrhea Stated complaint: VOMITING/DIARRHEA PUI?: No Time Seen by Provider: 06/18/21 09:15 Source: patient Mode of arrival: Ambulatory Limitations: Language Barrier - History of Present Illness Initial comments: 31 yo comes to ER with 1 d hx n/v/d. no abd pain. no back pain. no fever or chills. She thinks she ate something bad. She is also in nursing school and doing clinicals. LMP 2 w ago no similar illness in the past ambulatory and nad on exam. MD complaint: nausea, vomiting, diarrhea -: Gradual, days(s) Description of Vomiting: food contents, watery Associated Abdominal Pain: No Improves with: none Worsens with: eating Context: possible food poisoning Associated Symptoms: denies other symptoms, nausea/vomiting. denies: myalgias, chest pain, cough, diaphoresis, fever/chills, headaches, loss of appetite, malaise, rash, dysuria, shortness of breath, syncope, weakness - Related Data Previous Rx's Medication Instructions Recorded Last Taken Type Ondansetron [Zofran Odt] 4 mg PO Q8HR PRN #10 tab.rapdis 06/18/21 Unknown Rx Allergies Allergy/AdvReac Type Severity Reaction Status Date / Time shellfish derived AdvReac Intermediate Hives Verified 08/22/20 12:33 ED Review of Systems ROS: Stated complaint: VOMITING/DIARRHEA Other details as noted in HPI Comment: All other systems reviewed and negative ED Past Medical Hx - Past Medical History Previous Medical History?: Yes Hx Hypertension: No Hx Heart Attack/AMI: No Hx Congestive Heart Failure: No Hx Diabetes: No Hx Deep Vein Thrombosis: No Hx Pulmonary Embolism: No Hx Liver Disease: No Hx Renal Disease: No Hx Sickle Cell Disease: No Hx Arthritis: No Hx Seizures: No Hx Kidney Stones: No Hx Asthma: Yes Hx COPD: No Hx Tuberculosis: No Hx Dementia: No Hx HIV: No Additional medical history: Apparently the patient was transferred to [place] in 2018 for suicidal ideation. - Surgical History Past Surgical History?: Yes Hx Coronary Stent: No Hx Pacemaker: No Hx Internal Defibrillator: No Hx Cholecystectomy: Yes (09/03/2013) - Family History Family history: no significant - Social History Smoking Status: Never Smoker Substance Use Type: None - Medications Home Medications: Home Medications Medication Instructions Recorded Confirmed Last Taken Type Ondansetron [Zofran Odt] 4 mg PO Q8HR PRN #10 tab.rapdis 06/18/21 Unknown Rx ED Physical Exam - General Limitations: Language Barrier General appearance: alert, in no apparent distress - Head Head exam: Present: atraumatic, normocephalic - Eye Eye exam: Present: normal appearance - ENT ENT exam: Present: mucous membranes moist - Neck Neck exam: Present: normal inspection - Respiratory Respiratory exam: Present: normal lung sounds bilaterally. Absent: respiratory distress - Cardiovascular Cardiovascular Exam: Present: regular rate, normal rhythm. Absent: systolic murmur, diastolic murmur, rubs, gallop - GI/Abdominal GI/Abdominal exam: Present: soft, normal bowel sounds - Extremities Exam Extremities exam: Present: normal inspection - Back Exam Back exam: Present: normal inspection - Neurological Exam Neurological exam: Present: alert, oriented X3 - Psychiatric Psychiatric exam: Present: normal affect, normal mood - Skin Skin exam: Present: warm, dry, intact, normal color. Absent: rash ED Course Vital Signs 06/18/21 06/18/21 09:02 12:14 Temperature 97.8 F Pulse Rate 90 85 Respiratory 18 16 Rate Blood Pressure 105/71 Blood Pressure 118/65 [Right] O2 Sat by Pulse 99 100 Oximetry ED Medical Decision Making - Lab Data Result diagrams: 06/18/21 10:44 06/18/21 10:44 - Medical Decision Making Vital Signs 06/18/21 09:02 Temperature 97.8 F Pulse Rate 90 Respiratory 18 Rate Blood Pressure 105/71 O2 Sat by Pulse 99 Oximetry Lab Results 06/18/21 06/18/21 Range/Units 10:44 Unknown WBC 9.7 (4.5-11.0) K/mm3 RBC 4.79 (3.65-5.03) M/mm3 Hgb 14.4 H (10.1-14.3) gm/dl Hct 40.2 (30.3-42.9) % MCV 84 (79-97) fl MCH 30 (28-32) pg MCHC 36 H (30-34) % RDW 13.3 (13.2-15.2) % Plt Count 262 (140-440) K/mm3 Urine Color Yellow (Yellow) Urine Turbidity Slightly-cloudy (Clear) Urine pH 5.0 (5.0-7.0) Ur Specific [place] 1.017 (1.003-1.030) Urine Protein <15 mg/dl (Negative) mg/dL Urine Glucose (UA) Neg (Negative) mg/dL Urine Ketones Neg (Negative) mg/dL Urine Blood Neg (Negative) Urine Nitrite Neg (Negative) Urine Bilirubin Neg (Negative) Urine Urobilinogen < 2.0 (<2.0) mg/dL Ur Leukocyte Esterase Tr (Negative) Urine WBC (Auto) < 1.0 (0.0-6.0) /HPF Urine RBC (Auto) < 1.0 (0.0-6.0) /HPF Urine HCG, Qual Negative (Negative) lab noted ua noted preg neg 2L NS/zofran given on dc exam pt taking PO- although she states n/v/d have continued neither myself nor the nurses have seen her leave triage chairs to leave and she has no emesis bags dc home with dc plan of care including diet/ hydration/meds and follow up. She verbalizes understanding of plan of care. - Differential Diagnosis ro uti/gastrenteritis/preg Critical care attestation.: If time is entered above; I have spent that time in minutes in the direct care of this critically ill patient, excluding procedure time. ED Disposition Clinical Impression: Gastroenteritis Disposition: 01 HOME / SELF CARE / HOMELESS Is pt being admited?: No Does the pt Need Aspirin: No Condition: Stable Instructions: Viral Gastroenteritis, Adult Additional Instructions: stay well hydrated meds as ordered today TAKE OVER THE COUNTER LOMOTIL PER BOX INSTRUCTIONS FOR DIARRHEA BLAND DIET BANANA RICE APPLESAUCE TOAST ADVANCE TOLERATED FOLLOW UP WITH PCP IF PERSISTS REFERRAL BELOW Prescriptions: Ondansetron [Zofran Odt] 4 mg PO Q8HR PRN #10 tab.rapdis PRN Reason: Vomiting Referrals: DANAE BUTT MD [Primary Care Provider] - 3-5 Days Forms: Work/School Release Form(ED) Time of Disposition: 11:28
[2021-06-18] MEDS ORDERED: SODIUM CHLORIDE 0.9% 1000 ML 1,000 ML IV ONE (09:59)
[2021-06-18 11:26] LABS: Hematocrit 40.2 % (30.3-42.9); Hemoglobin 14.4 gm/dl (10.1-14.3); Mean Corpuscular HGB Conc 36 % (30-34); Mean Corpuscular Volume 84 fl (79-97); Platelet Count 262 K/mm3 (140-440); Red Blood Count 4.79 M/mm3 (3.65-5.03); Red Cell Distribution Width 13.3 % (13.2-15.2)
[2021-06-18 11:30] LABS: Alanine Aminotransferase 18 units/L (7-56); Albumin 3.8 g/dL (3.9-5); Blood Urea Nitrogen 10 mg/dL (7-17); Hemolysis Index 9
[2021-06-18 11:39] LABS: BUN/Creatinine Ratio 20
[2021-06-18 12:18] VITALS: BP 118/65
== END 2021-06-18 12:21 | disposition home or self-care (01) ==
LOC: ED 08:53
DX: K52.9 Noninfective gastroenteritis and colitis, unspecified (principal); J45.909 Unspecified asthma, uncomplicated; Z90.49 Acquired absence of other specified parts of digestive tract; Z98.890 Other specified postprocedural states
CPT/HCPCS: 36415; 80053; 81001; 81025; 83690; 85027; 96360; 99283; J3490; Q0162